=== PATIENT | male | born 1955 | race Caucasian/White ===

== ENCOUNTER 2018-02-08 13:30 | Inpatient (IN) | payer MEDICARE ==
[2018-02-08 14:09] LABS: INR-International Normal Ratio 2.4; PTT 34.8 SEC (22.9-36.1); Prothrombin Time 26.5 SEC (12.0-14.7)
[2018-02-08 14:10] LABS: D-Dimer Test 1.47 *mcg/mL (0.27-0.43)
[2018-02-08 14:12] LABS: Hemoglobin 12.8 g/dL (14.0-18.0); Mean Corpuscular HGB CONC 29.4 g/dL (32.0-36.0); Mean Corpuscular Hemoglobin 30.7 pg (27.0-31.0); Mean Platelet Volume 8.7 fL (7.4-10.4); Platelet Count 125 thou/uL (130-400); RBC Distribution Width 15.2 % (11.5-14.5); Red Blood Cell (RBC) Count 4.16 mill/uL (4.70-6.10); White Blood Cell (WBC) Count 4.9 thou/uL (4.8-10.8)
[2018-02-08 14:24] LABS: ALT (SGPT) Less than 7 U/L (8-55); AST (SGOT) 14 U/L (5-34); Albumin 3.4 g/dL (3.4-4.8); Alkaline Phosphatase 58 U/L (40-150); BUN (Urea Nitrogen) 27 mg/dL (8.4-25.7); Bilirubin, Total 0.6 mg/dL (0.2-1.2); Calc. Creatinine Clearance 0 mL/min (70-130); Calcium 9.3 mg/dL (7.8-10.44); Estimated GFR-MDRD 52; Globulin 5.3 g/dL (2.4-3.5); Glucose 142 mg/dL (80-115); Protein, Total 8.7 g/dL (5.8-8.1)
[2018-02-08 14:33] LABS: Anion Gap 18 mmol/L (10-20); Chloride 87 mmol/L (98-107); Potassium 4.8 mmol/L (3.5-5.1); Sodium 144 mmol/L (136-145)
--- NOTE | 2018-02-08 14:34 | RAD ---
PORTABLE CHEST 1 VIEW: Date: 02/08/18 Time: 1407 hours HISTORY: Dyspnea. FINDINGS/IMPRESSION: Comparison made with exam of 12/20/14. The heart size is enlarged. There is pulmonary vascular congestion with right pleural effusion. No pn eumothoraces seen. POS: [facility]
[2018-02-08 14:36] LABS: Carbon Dioxide 44 mmol/L (23-31)
[2018-02-08 14:39] LABS: #Eosinphils 0.1 thou/uL (0.0-0.7); #Lymphocytes 0.8 thou/uL (1.20-3.40); #Monocytes 0.4 thou/uL (0.11-0.59); #Neutrophils 3.6 thou/uL (1.40-6.50); %Basophils 0.8 % (0.0-1.0); %Eosinophils 2.3 % (0.0-10.0); %Lymphocytes 16.1 % (21.0-51.0); %Neutrophils 73.7 % (42.0-75.0); Anisocytosis SLIGHT = 6-15 cells (100X) (0-5/hpf); Hypochromia SLIGHT = 6-15 cells (100X) (0-5/hpf); MDiff Complete? YES; PLT Morphology Comment Appears Decreased
[2018-02-08 14:46] LABS: CKMB 1.2 ng/mL (0-6.6)
[2018-02-08] MEDS ORDERED: Albuterol Sulfate 2.5 mg/3 ml Neb ONE (16:05)
[2018-02-08] MEDS ORDERED: Albuterol Sulfate 2.5 mg/0.5 ml Neb ONE (16:05)
[2018-02-08] MEDS ORDERED: Sodium Chloride 0.65% Nasal 44 ML BOT EA NARE PRN (16:18)
[2018-02-08] MEDS ORDERED: Bisacodyl 10 MG SUPP PR PRN (16:18)
[2018-02-08] MEDS ORDERED: cloNIDine 0.1 MG TAB PO PRN (16:18)
[2018-02-08] MEDS ORDERED: Diabetic Tussin 200 MG/10 ML UDCUP PO PRN (16:18)
[2018-02-08] MEDS ORDERED: Benzonatate 100 MG CAP PO PRN (16:18)
[2018-02-08] MEDS ORDERED: Calcium Carbonate 500 MG ChewTAB PO PRN (16:18)
[2018-02-08] MEDS ORDERED: Bisacodyl 5 MG TAB PO PRN (16:18)
[2018-02-08] MEDS ORDERED: Senokot S 8.6-50 MG TAB PO PRN (16:18)
[2018-02-08] MEDS ORDERED: Acetaminophen 325 MG TAB PO PRN (16:18)
[2018-02-08] MEDS ORDERED: hydrALAZINE 20 MG/ML VIAL SLOW IVP PRN (16:18)
[2018-02-08] MEDS ORDERED: cefTRIAXone\\ROCEPHIN 2 GM VIAL ONE (16:26)
[2018-02-08] MEDS ORDERED: methylPREDNISolone Sod Succ/PF 125 MG/2 ML VIAL ONE (16:26)
[2018-02-08] MEDS ORDERED: Furosemide 40 MG/4 ML VIAL ONE (16:50)
[2018-02-08 17:51] LABS: Actual Bicarbonate (HCO3a) 58.7 mEq/L (22-28); Analyzer IN Cardio ER; Base Excess (BEa) 24.6 mEq/L (-2.0 to +3.0); Calcium, Ionized 1.12 mmol/L (1.12-1.30); Carboxyhemoglobin (COHb) 1.6 gm% (0.0-3.0); Hemoglobin (Hb) 13.1 g/dL (14.0-18.0); Potassium - ABG Lab 4.12 mmol/L (3.70-5.30); pH, Arterial 7.26 (7.35-7.45)
[2018-02-08 17:54] LABS: CO2 Tension 135.1 mmHg (35.0-45.0); O2 Tension (PaO2) 58.2 mmHg (> 80.0)
[2018-02-08 17:55] LABS: ALV-art Gradient 22.475 (0-20)
[2018-02-08] MEDS ORDERED: Succinylcholine Chloride 20 MG/ML 10 ml SYRINGE FS ONE (17:59)
[2018-02-08] MEDS ORDERED: Morphine 2 MG/ML SYRINGE SLOW IVP PRN (18:21)
[2018-02-08] MEDS ORDERED: Lorazepam 2 MG/ML VIAL SLOW IVP PRN (18:21)
[2018-02-08] MEDS ORDERED: Propofol BOLUS 1,000 MG/100 ML VIAL IV PRN (18:21)
[2018-02-08] MEDS ORDERED: Fentanyl BOLUS 250 ML IVPB PRN (18:21)
[2018-02-08] MEDS ORDERED: DISCONTINUE PREVIOUS NARCOTIC PAIN MEDICATIONS AND BENZODIAZEPINES FS SCH (18:21)
[2018-02-08 18:23] LABS: CKMB 1.1 ng/mL (0-6.6)
[2018-02-08] MEDS ORDERED: Fentanyl 100 MCG/2 ML VIAL ONE ×2 (18:28→18:32)
[2018-02-08] MEDS ORDERED: Ventilator Sedation Protocol 1 EACH FS SCH (18:30)
[2018-02-08] MEDS ORDERED: Midazolam HCl 5 mg/ml Vial ONE (18:30)
[2018-02-08] MEDS ORDERED: Propofol 1,000 MG/100 ML VIAL IV ONE (18:32)
[2018-02-08 19:05] LABS: Analyzer IN Cardio ER; Base Excess (BEa) 24.2 mEq/L (-2.0 to +3.0); Calcium, Ionized 1.09 mmol/L (1.12-1.30); Carboxyhemoglobin (COHb) 1.5 gm% (0.0-3.0); Hemoglobin (Hb) 13.3 g/dL (14.0-18.0); O2 Tension (PaO2) 68.8 mmHg (> 80.0); Potassium - ABG Lab 4.09 mmol/L (3.70-5.30); pH, Arterial 7.46 (7.35-7.45)
--- NOTE | 2018-02-08 19:06 | HP ---
PRIMARY CARE PHYSICIAN: Dr. Dar Dennis. CHIEF COMPLAINT: Low oxygen saturation and shortness of breath. HISTORY OF PRESENTING ILLNESS: Mr. Fraser is a 62-year-old male with past medical history of morbid obesity as well as history of DVT and PE, on chronic anticoagulation as well as history of abdominal cellulitis 3 years ago and chronic venostasis in the legs, who presented from home with the above mentioned complaint. History is mainly obtained by his jy-cuyoqi-ax-law present in the emergency room. The patient is very somnolent at this time and is not able to provide any history. He does wake up and answer most of the questions and follow simple commands, but falls back asleep quickly. According to the family, the patient was off Coumadin for almost 3 years. He got sick in November of this year and presented to the [facility] for shortness of breath and was restarted on Coumadin. He was restarted on Coumadin in [facility] and was discharged to [facility]. He came back home from there and has been doing fairly fine. He has been taking his Coumadin now, but with some encouragement from his family. He has been discharged on home oxygen and the family has been noticing that for the last two days his oxygen levels have been running low. He was noticed to become more and more somnolent and very short of breath as per his family. His oxygen saturations dropped to 70% to 80% at home. Eventually, they brought him to the hospital today. The patient himself is somewhat agitated and at this time denies any other symptoms and wants to be left alone. He denies any chest pain per se. He denies any recent fever, illness, or chills. He denies any cough. In the emergency room, he was found to be hypoxic with a saturation in the 70% initially. He was found to be wheezing. He was started on continuous nebulizers and non-rebreather mask at 15% oxygen which was reduced to 3% afterwards. His labs were consistent with hypercarbia and eventually a VBG was done, which showed CO2 more than 70. Results are not available to me at this time. At my request, emergency room physician contacted Pulmonary Medicine and it was instructed that he would be started on BiPAP. He is now being admitted to the [facility] on BiPAP for acute hypoxic respiratory failure with hypercapnia. Rest of his blood work is remarkable for elevated troponin at 0.197 and elevated BNP of 1331. His chest x-ray has pulmonary vascular congestion. He was also given Solu-Medrol and antibiotics in the emergency room for possible infiltrates. The family reports that he was recently told by the primary care physician that he has worsening of his kidney disease and was referred to Nephrology, Dr. Carbjaal and they are yet to make an appointment with him. His INR is therapeutic at 2.4 today. Unfortunately, because of his big size, he is unable to get a CT scan or a V/Q scan of his chest for further delineation of his underlying illness. PAST MEDICAL HISTORY: 1. Morbid obesity. His weight is 223 kg. 2. History of cellulitis of abdominal wall, December 2014, requiring surgical intervention. 3. History of DVT and PE, on chronic anticoagulation with warfarin. 4. Chronic lower venostasis and ulceration. PAST SURGICAL HISTORY: 1. Abdominal necrotic tissue removal, 2014. 2. Hernia surgery 25 years ago. SOCIAL HISTORY: He lives largely alone. He has family on and off to take care of him. He is largely bed bound and can walk only from the bed to the bedside commode with difficulty. He is on home oxygen. No history of drug, tobacco, or alcohol abuse. Surrogate decision maker is his fn-[id number]-law, but there is no formal medical power of litigation attorney associate. FAMILY HISTORY: Significant for mom, who of cancer and father in his 90s. His brother recently a year and a half ago from a massive heart attack and the brother's is present in the room in the ER. ALLERGIES: NO KNOWN MEDICATION ALLERGIES. CURRENT MEDICATIONS: Coumadin 5 mg daily. Otherwise, further need to be reconciled. REVIEW OF SYSTEMS: Limited review of system as the patient refuses to answer most of my questions and is somewhat somnolent. Otherwise as per HPI. CODE STATUS: Full code discussed with the patient after he was woken up. He is very certain that he will be okay if he needs to be intubated, and he will be okay with the CPR if needed. Dvhfoc-bo-rad also agreed with this decision. LABORATORY DATA: Lab examination; CBC shows WBCs 4.9 with normal differential. Hemoglobin 12.8 with macrocytosis, platelet count 125, INR is 2.4, and D-dimer 1.47. Serum chemistry showed chloride 87, bicarb 44, BUN 27, creatinine 1.38 with estimated GFR of 52, troponin is 0.197 with normal CK-MB. Liver enzymes unremarkable. BNP is 1331.5. DIAGNOSTIC DATA: Chest x-ray by my review shows cardiomegaly and mild pulmonary vascular congestion without any significant infiltrate. A 12-lead EKG shows normal sinus rhythm with right bundle branch block and evidence of right ventricular hypertrophy. PHYSICAL EXAMINATION: VITAL SIGNS: Upon presentation to the ER, blood pressure 110/69, pulse of 78, respirations 25, temperature 98.1, saturating 98% on non-rebreather. GENERAL: He is somnolent, but woken up easily, but falls back asleep easily as well. Currently, in no acute respiratory distress. HEENT: He has been on continuous albuterol nebulizer. Mucous membrane is slightly dry. No oropharyngeal exudate or erythema. Head is normocephalic, atraumatic. Pupils equal and reactive to light and accommodation. Extraocular movement intact. NECK: Obese, soft, and supple without any lymphadenopathy. Rate rhythm is regular without any significant murmur. Bilateral diffuse wheezes are heard, but difficult to auscultate because of morbid obesity. ABDOMEN: Extensive and morbidly obese without any cellulitic changes. He does have venostasis type changes in the lateral francis and pannus. EXTREMITIES: Show extensive bilateral lower extremity venostasis changes with discoloration and thickening of the skin without any obvious ulceration or weeping. Edema noticed bilaterally. NEUROLOGICAL: He is moving all 4 extremities on command. He is somnolent, but awake, alert, and oriented x3 when woken up. PSYCHIATRIC: Agitated. IMPRESSION AND PLAN: 1. Acute hypoxic and hypercapnic respiratory failure. It seems to be multifactorial in origin, but most likely it is worsening sleep apnea causing hypercapnia. The patient was prescribed continuous positive airway pressure at home, but is obviously noncompliant. Morbid obesity is seemingly the root of most of his problems. He most likely has suffered right-sided heart failure with or without cor pulmonale as evidenced by pulmonary vascular congestion and elevated BNP and elevated troponin. He will be diuresed, and we will give him IV steroids and nebulizers. I am not convinced that he has infection at this time, so we will hold off on further antibiotics. Because of hypercarbia, he will be started on bilevel positive airway pressure and will be admitted to Intermediate Care Unit. We will request consultation with Pulmonary Critical Care Medicine as well. We will also rule out acute coronary syndrome with serial cardiac enzymes and put him on aspirin for now. The probability of pulmonary embolism is less likely as his INR is therapeutic on Coumadin. We will continue that. We will also obtain strict inputs and outputs and fluid restriction and also obtain a transthoracic echocardiogram to assess cardiac function. A cardiac event also cannot be ruled out, but most likely his symptoms are due to worsening right-sided heart failure, because of severe sleep apnea. 2. Elevated troponin, suspected either demand ischemia versus non ST elevation myocardial infarction. We will continue to trend serial cardiac enzymes and obtain transthoracic echocardiogram. We will also consider Cardiology consultation if his troponin continues to trend upwards. Avoid any anticoagulation at this time as he is therapeutic on his INR and the chances of bleeding are higher. Aspirin will be given as above. This can also be secondary to acute congestive heart failure. 3. Acute congestive heart failure, unclear systolic versus diastolic at this time. We will diurese him and obtain a transthoracic echocardiogram. Consult Cardiology if necessary. 4. Morbid obesity. Untreatable at this stage. 5. History of deep venous thrombosis and pulmonary embolism. Continue Coumadin and monitor daily PT and INRs. 6. Severe deconditioning. We will consult occupational therapy and physical therapy as well as Palliative Care Team. 7. Chronic respiratory failure, likely secondary to severe sleep apnea. Continue CPAP while in the hospital at night. Currently, he will be on BiPAP for acute hypoxic respiratory failure. 8. Chronic kidney disease, seems to be at baseline. He will follow up with Nephrology as an outpatient, and we will monitor renal function on a daily basis especially because he is also going to be diuresed. 9. Code status: Full code discussed with the patient and his family at bedside. 10. Deep venous thrombosis and gastrointestinal prophylaxis in the form of continuation of Coumadin and Pepcid b.i.d. DISPOSITION: Mr. Fraser is currently being admitted to [facility] for severe hypercarbic and hypoxic acute on chronic respiratory failure and acute congestive heart failure as well as elevated troponin. ESTIMATED LENGTH OF STAY: At this time is at least 2 to 3 midnights. Further management will depend upon his clinical course. TIME SPENT: Total time spent in taking care of this patient is 46 minutes including [id number] interaction. Job ID: [id number]
[2018-02-08 19:24] LABS: CO2 Tension 76.2 mmHg (35.0-45.0)
[2018-02-08 19:25] LABS: Puncture Site LRA
--- NOTE | 2018-02-08 19:51 | RAD ---
PORTABLE CHEST: HISTORY: Shortness of breath. Intubation. COMPARISON: Earlier exam from the same day. FINDINGS: Heart size is enlarged. Endotracheal tube is now present, which appears to be in satisfactory positi on. There is also what appears to be an NG tube, the tip of which is difficult to visualize. There are some pleural and parenchymal changes in the right base. The left lung shows some subsegmental at electasis. IMPRESSION: Interval placement of endotracheal tube, which appears to be in satisfactory position. The distal po rtion of the nasogastric tube is difficult to visualize on this examination. POS: [facility]
[2018-02-08 20:33] VITALS: BMI 66.9
[2018-02-08 21:02] LABS: Troponin I 0.158 ng/mL (< 0.028)
[2018-02-08] MEDS ORDERED: Sodium Chloride 0.9% 15 ML NEB ONE (21:08)
--- NOTE | 2018-02-08 21:14 | CON ---
DATE OF CONSULTATION: HISTORY OF PRESENT ILLNESS: A 62-year-old, morbidly obese gentleman, whose history is obtained from talking to his dshosd-ql-hpt. She is in the ER, states that recently went home from a [facility] assisted. He was there admitted for about roughly I am thinking about 3 weeks with similar problems, shortness of breath, coughing, severe deconditioning. He then sees Dr. Draper, who apparently had arranged for him to see Dr. Awan sometime in February. Obdghq-ey-ele states he has severe limitation of activity. Apparently, does have a CPAP machine, but has failed to use it. He is morbidly obese. He weighs over 450 pounds. During the last visit, he is on long-term Coumadin for chronic DVT. Unable to get any history. When I arrived, he is being intubated by the ER physician for acute respiratory failure with marked respiratory acidosis. His pCO2 was greater than 100. PAST MEDICAL HISTORY: Morbid obesity, DVT, chronic stasis cellulitis, COPD, former smoker. He has not been in this hospital for almost 3 years. Unclear who his primary care physician is, but appears it may be Dr. Draper. Arcmkq-ep-qjt states he has smoked in the past with COPD and pneumonia issues. PAST MEDICAL HISTORY: Apparently none. His brother was not here, but bother's was here. HOME MEDICATIONS: Apparently Coumadin 5, otherwise unknown medication. REVIEW OF SYSTEMS: Unobtainable. PHYSICAL EXAMINATION: GENERAL: Morbidly obese. VITAL SIGNS: Post intubation, his sats 100%, pulse 80, blood pressure 138/80. CHEST: Decreased breath sounds. No wheezing. CARDIAC: Normal S1 and S2. No gallop. Abdomen is morbid. EXTREMITIES: Trace edema. NEUROLOGIC: Sedated. LABORATORY DATA: White count 4000, H and H , platelet count 125. INR is 2.4. D-dimer is 1.47. His PO2 was 58, pCO2 is 135, pH 7.26, and bicarb was 44. Creatinine 1.38. BNP is 131 elevated. Chest x-ray, as noted, shows morbid obesity, questionable chronic bilateral pleural thickening, pleural effusion. I do not see obvious infiltrates. IMPRESSION: 1. Acute on chronic respiratory failure. 2. Morbid obesity. 3. Marked respiratory acidosis. 4. Marked metabolic alkalosis. 5. Stasis. 6. Chronic deep vein thrombosis, on Coumadin. PLAN: 1. Neb treatments, steroids, antibiotics were initiated. 2. Continue vent support, wean when stable. Discuss with family ongoing issues, code status. Question is whether he would benefit from a trach. We will try and get information from the during his most recent admission. This is a 45-minute Critical Care time. Job ID: [id number]
[2018-02-08] MEDS: Propofol 1,000 MG/100 ML VIAL IV PRN (22:03)
[2018-02-08] MEDS: Famotidine 20 MG TAB PO SCH (22:19)
[2018-02-08] MEDS: Cefepime 1 GM in Sodium Chloride 0.9% 100 ML IVPB SCH (22:20)
[2018-02-09] MEDS: Propofol 1,000 MG/100 ML VIAL IV PRN ×5 (02:33→21:56)
[2018-02-09] MEDS: fentaNYL Citrate/PF 2,000 MCG in Sodium Chloride 0.9% 60 ML IV SCH ×2 (03:14→21:56)
[2018-02-09 05:15] LABS: #Lymphocytes 0.3 thou/uL (1.20-3.40); #Monocytes 0.1 thou/uL (0.11-0.59); #Neutrophils 3.7 thou/uL (1.40-6.50); %Basophils 0.1 % (0.0-1.0); %Eosinophils 0.3 % (0.0-10.0); %Lymphocytes 7.9 % (21.0-51.0); %Monocytes 2.6 % (0.0-10.0); %Neutrophils 89.1 % (42.0-75.0); Hemoglobin 12.9 g/dL (14.0-18.0); Mean Corpuscular HGB CONC 29.6 g/dL (32.0-36.0); Mean Corpuscular Hemoglobin 30.5 pg (27.0-31.0); Platelet Count 133 thou/uL (130-400); Red Blood Cell (RBC) Count 4.22 mill/uL (4.70-6.10); White Blood Cell (WBC) Count 4.1 thou/uL (4.8-10.8)
[2018-02-09 05:19] LABS: INR-International Normal Ratio 2.6; Prothrombin Time 27.9 SEC (12.0-14.7)
[2018-02-09 05:28] LABS: BUN (Urea Nitrogen) 26 mg/dL (8.4-25.7); Calc. Creatinine Clearance 182 mL/min (70-130); Calcium 9.4 mg/dL (7.8-10.44); Estimated GFR-MDRD 54; Glucose 177 mg/dL (80-115)
[2018-02-09 05:37] LABS: Anion Gap 21 mmol/L (10-20); Chloride 85 mmol/L (98-107); Potassium 5.1 mmol/L (3.5-5.1); Sodium 142 mmol/L (136-145)
[2018-02-09] MEDS: Furosemide 40 MG/4 ML VIAL SLOW IVP SCH ×2 (05:41→13:54)
[2018-02-09] MEDS: Cefepime 1 GM in Sodium Chloride 0.9% 100 ML IVPB SCH ×2 (05:41→16:55)
[2018-02-09 05:42] LABS: Carbon Dioxide 41 mmol/L (23-31)
[2018-02-09 07:56] LABS: Actual Bicarbonate (HCO3a) 48.1 mEq/L (22-28); Base Excess (BEa) 23.8 mEq/L (-2.0 to +3.0); CO2 Tension 47.6 mmHg (35.0-45.0); Calcium, Ionized 1.08 mmol/L (1.12-1.30); Carboxyhemoglobin (COHb) 1.4 gm% (0.0-3.0); Potassium - ABG Lab 3.84 mmol/L (3.70-5.30)
[2018-02-09 08:01] LABS: Puncture Site RRA; pH, Arterial 7.62 (7.35-7.45)
[2018-02-09] MEDS ORDERED: WARFARIN PO PRN (08:08)
[2018-02-09] MEDS ORDERED: predniSONE 20 MG TAB PO SCH (08:45)
[2018-02-09] MEDS: Aspirin 325 mg Enteric Coated Tablet PO SCH (09:01)
[2018-02-09] MEDS: Famotidine 20 MG TAB PO SCH ×2 (09:01→21:57)
--- NOTE | 2018-02-09 09:29 | RAD ---
PORTABLE SEMIUPRIGHT FRONTAL CHEST RADIOGRAPH: Date: 02/09/18 COMPARISON: 02/08/18. HISTORY: Ventilated patient. FINDINGS: Stable endotracheal tube and nasogastric tubes. Stable enlargement of the cardiac silhouette. No pneu mothorax. There is pulmonary vascular congestion with diffuse increased interstitial density in the perihilar r egions and both lung bases, right greater than left. There is blunting of the right costophrenic angl e suggesting right pleural fluid and/or pleural thickening, and there are focal areas of increased de nsity in the right lung base suggesting volume loss, infectious pneumonitis, or aspiration. IMPRESSION: Stable appearance of the chest as detailed above. POS: [facility]
--- NOTE | 2018-02-09 10:17 | PRG ---
DATE OF SERVICE: 02/09/2018 SERVICE: Pulmonary Medicine. INTERVAL HISTORY: Overnight, the patient's lungs have opened up a little bit. He cannot provide any additional elements of the history. He requires mechanical ventilation. There has been no interval change to his condition. Nursing reports no overnight events. OBJECTIVE: VITAL SIGNS: Afebrile, pulse 62, blood pressure 109/75, respirations 11, saturation 92% on 45% FiO2, and a PEEP of 5. GENERAL: The patient is intubated and sedated. HEENT: Normocephalic and atraumatic. Sclerae white. Conjunctivae pink. Oral mucosa is moist without lesions. LUNGS: Decent air entry. There is no prolonged expiratory phase, wheezing, rhonchi, or crackles present. HEART: Normal rate. Regular. ABDOMEN: Soft, nontender, and nondistended. Bowel sounds are positive. MUSCULOSKELETAL: No cyanosis or clubbing. There is diffuse edema throughout bilateral lung lama. LABORATORY DATA: WBC 4.1, hemoglobin 12.9, platelets 133,000. INR 2.6. PH 7.62, pCO2 of 48, pO2 of 52, corresponding to a saturation of 93%. Creatinine downtrending to 1.33. Bicarb 41 and downtrending, chloride 85, sodium 142. BNP 1300, troponin is downtrending to 0.156. TSH falls within the normal limits. BNP is elevated, lactate negative. Blood cultures x2 are negative. IMAGING DATA: Chest x-ray demonstrates pulmonary vascular congestion. Endotracheal tube is in good position, roughly 4 cm above the level of the connie. There is likely a right pleural parenchymal opacification present, which could be associated with volume overload versus infectious process. ASSESSMENT: 1. Acute on chronic hypoxic and hypercapnic respiratory failure. 2. Morbid obesity. 3. Acute heart failure. 4. Community-acquired pneumonia, suspected. DISCUSSION AND PLAN: We will continue supportive care including a ventilator. We backed off our minute volume quite a bit. ABG will be repeated tomorrow morning. We will wean away oxygen as tolerated. Agree with diuresing the patient through time. Hopefully, we will keep him negative 1 to 2 L over the next 24 to 48 hours. At this point, his oxygen requirements preclude extubation. We will give him a sedation holiday, but we have no plans on extubating him today. CRITICAL CARE TIME: 30 minutes. Job ID: [id number]
--- NOTE | 2018-02-09 12:18 | PDOC.PN ---
- Subjective Encounter Start Date: 02/09/18 Encounter Start Time: 12:16 Subjective: remains intubated for hypercarbia .no new events - Objective Resuscitation Status - Order Detail: 02/08/18 16:59 Resuscitation Status Routine Resuscitation Status: FULL: Full Resuscitation Discussed with: discussed with patient and family MAR Reviewed: Yes Vital Signs & Weight: Vital Signs (12 hours) Temp Pulse Resp 02/09/18 11:00 99.7 F H 02/09/18 10:35 64 02/09/18 10:00 14 02/09/18 09:40 71 02/09/18 08:00 100 F H 20 02/09/18 07:48 62 02/09/18 07:00 100 F H 02/09/18 06:00 20 02/09/18 04:00 99.5 F 20 02/09/18 03:50 59 L 02/09/18 02:00 20 Weight Weight 493 lb Most Recent Monitor Data Heart Rate from ECG 61 NIBP 126/54 NIBP BP-Mean 78 Respiration from ECG 16 SpO2 95 I&O: 02/08/18 02/09/18 02/10/18 06:59 06:59 06:59 Intake Total 559.0 Output Total 1635 1325 Balance -1076.0 -1325 Result Diagrams: 02/10/18 04:43 02/10/18 04:43 Additional Labs: Laboratory Tests 02/08/18 02/08/18 02/08/18 13:54 13:54 17:48 Creatinine 1.38 H Troponin I 0.197 H 0.156 H 02/08/18 02/09/18 20:30 04:53 Creatinine 1.33 H Troponin I 0.158 H Phys Exam - Physical Examination Constitutional: NAD HEENT: PERRLA, moist MMs, oral pharynx no lesions ETT Neck: no nodes, no JVD, supple, full ROM Respiratory: no wheezing, no rales, no rhonchi, clear to auscultation bilateral Cardiovascular: RRR, no significant murmur Gastrointestinal: soft, no distention, positive bowel sounds morbidly obese Musculoskeletal: no edema, pulses present sedated.moves all extremities Skin: no rash Dx/Plan (1) Acute on chronic respiratory failure with hypoxia and hypercapnia Code(s): J96.21 - ACUTE AND CHRONIC RESPIRATORY FAILURE WITH HYPOXIA; J96.22 - ACUTE AND CHRONIC RESPIRATORY FAILURE WITH HYPERCAPNIA Status: Acute (2) Acute CHF (congestive heart failure) Code(s): I50.9 - HEART FAILURE, UNSPECIFIED Status: Acute Qualifiers: Heart failure type: unspecified Qualified Code(s): I50.9 - Heart failure, unspecified (3) Elevated troponin Code(s): R74.8 - ABNORMAL LEVELS OF OTHER SERUM ENZYMES Status: Acute Comment: likley demand ischemia from Acute CHF (4) Chronic anticoagulation Code(s): Z79.01 - MARKETING DIRECTOR ASSISTED LIVING (CURRENT) USE OF ANTICOAGULANTS Status: Chronic (5) CHUCHO (obstructive sleep apnea) Code(s): G47.33 - OBSTRUCTIVE SLEEP APNEA (ADULT) (PEDIATRIC) Status: Chronic (6) Chronic cutaneous venous stasis ulcer Code(s): I83.009 - VARICOSE VEINS OF UNSP LOWER EXTREMITY W ULCER OF UNSP SITE Status: Chronic (7) Morbid obesity Code(s): E66.01 - MORBID (SEVERE) OBESITY DUE TO EXCESS CALORIES Status: Chronic - Plan DVT proph w/SCDs cont diuresis,steroids,nebs. -: Vent managment per PCCM -: ECHO to assess cardiac Function.lilet R sided failure with/without Cor pulm -: coumadin w daily PT/INR -: HD stable.am labs * . Review of Systems - Review of Systems Other: can't be obtained due to sedation & intubation - Medications/Allergies Allergies/Adverse Reactions: Allergies Allergy/AdvReac Type Severity Reaction Status Date / Time No Known Drug Allergies Allergy Verified 02/08/18 21:03 Medications: Current Medications Acetaminophen (Tylenol) 650 mg PO Q4H PRN PRN Reason: Headache/Fever/Mild Pain (1-3) Albuterol/Ipratropium (Duoneb) 3 ml NEB [id number] PRN PRN Reason: SOB &/or Wheezing Albuterol/Ipratropium (Duoneb) 3 ml NEB [id number] [facility] Aspirin (Ecotrin) 325 mg PO DAILY [facility] Last Admin: 02/09/18 09:01 Dose: 325 mg Bisacodyl (Dulcolax) 10 mg PO DAILYPRN PRN PRN Reason: Constipation Bisacodyl (Dulcolax) 10 mg IN DAILYPRN PRN PRN Reason: Constipation Calcium Carbonate (Tums) 1,000 mg PO Q4H PRN PRN Reason: Heartburn or Indigestion Clonidine (Catapres) 0.1 mg PO Q4H PRN PRN Reason: SBP > 160____ Famotidine (Pepcid) 20 mg PO BID [facility] Last Admin: 02/09/18 09:01 Dose: 20 mg Furosemide (Lasix) 40 mg SLOW IVP 0600,1400 [facility] Last Admin: 02/09/18 05:41 Dose: 40 mg Guaifenesin (Robitussin Sf) 200 mg PO Q4H PRN PRN Reason: Cough Hydralazine HCl (Apresoline) 10 mg SLOW IVP Q4H PRN PRN Reason: SBP > 180 and HR < 70 Cefepime HCl 1 gm/ Sodium (Chloride) 100 mls @ 200 mls/hr IVPB 0630,1830 [facility] Last Admin: 02/09/18 05:41 Dose: 100 mls Fentanyl Citrate 2,000 mcg/ (Sodium Chloride) 100 mls @ 0 mls/hr IV INF [facility]; Protocol Stop: 03/10/18 18:21 Last Admin: 02/09/18 03:14 Dose: 100 mls Fentanyl Citrate (Fentanyl Bolus) 250 mls @ 0 mls/hr IVPB PRN PRN PRN Reason: Breakthrough pain/agitation Stop: 03/10/18 18:21 Methylprednisolone Sodium Succinate (Solu-Medrol) 40 mg IVP Q6HR [facility] Last Admin: 02/09/18 05:41 Dose: 40 mg Miscellaneous Medication (Pharmacy To Dose) 1 each PO PRN PRN PRN Reason: Pharmacy to dose Discontinue Previous Narcotic Pain Medications And Benzodiazepines 1 each FS .ONE [facility] Stop: 03/10/18 18:21 Ondansetron HCl (Zofran) 4 mg IVP Q6H PRN PRN Reason: Nausea/Vomiting Prednisone (Prednisone) 40 mg PO QAM-[facility] Propofol (Diprivan) 1,000 mg IV INF PRN; Protocol PRN Reason: TO ACHIEVE GOAL RASS Stop: 03/10/18 18:21 Last Admin: 02/09/18 07:36 Dose: 1,000 mg Propofol (Diprivan Bolus) 20 mg IV Q5MIN PRN PRN Reason: BREAKTHROUGH AGITATION Stop: 03/10/18 18:21 Senna/Docusate Sodium (Senokot S) 2 tab PO BID PRN PRN Reason: Constipation Sodium Chloride ([place] Nasal [place] 0.65%) 0 ml EA NARE QIDPRN PRN PRN Reason: Nasal Congestion Warfarin Sodium (Coumadin) 5 mg PO 1700 J[facility]NNIE
[2018-02-09] MEDS: Warfarin Sodium 5 MG TAB PO SCH (16:55)
[2018-02-10] MEDS: Propofol 1,000 MG/100 ML VIAL IV PRN ×4 (04:13→20:41)
[2018-02-10 05:25] LABS: #Lymphocytes 0.3 thou/uL (1.20-3.40); #Monocytes 0.3 thou/uL (0.11-0.59); %Basophils 0.4 % (0.0-1.0); %Eosinophils 0.1 % (0.0-10.0); %Lymphocytes 5.5 % (21.0-51.0); %Monocytes 4.6 % (0.0-10.0); %Neutrophils 89.4 % (42.0-75.0); Hemoglobin 12.7 g/dL (14.0-18.0); Mean Corpuscular HGB CONC 30.2 g/dL (32.0-36.0); Mean Corpuscular Hemoglobin 30.3 pg (27.0-31.0); Mean Platelet Volume 8.1 fL (7.4-10.4); Platelet Count 139 thou/uL (130-400); RBC Distribution Width 15.6 % (11.5-14.5); Red Blood Cell (RBC) Count 4.18 mill/uL (4.70-6.10); White Blood Cell (WBC) Count 5.6 thou/uL (4.8-10.8)
[2018-02-10 05:31] LABS: INR-International Normal Ratio 1.9; Prothrombin Time 21.9 SEC (12.0-14.7)
[2018-02-10] MEDS: Furosemide 40 MG/4 ML VIAL SLOW IVP SCH ×2 (05:35→14:51)
[2018-02-10] MEDS: Cefepime 1 GM in Sodium Chloride 0.9% 100 ML IVPB SCH ×2 (05:35→18:20)
[2018-02-10 05:43] LABS: BUN (Urea Nitrogen) 29 mg/dL (8.4-25.7); Calc. Creatinine Clearance 186 mL/min (70-130); Calcium 9.1 mg/dL (7.8-10.44); Estimated GFR-MDRD 56; Glucose 147 mg/dL (80-115)
[2018-02-10 05:53] LABS: Anion Gap 19 mmol/L (10-20); Chloride 85 mmol/L (98-107); Potassium 3.7 mmol/L (3.5-5.1); Sodium 142 mmol/L (136-145)
[2018-02-10 05:55] LABS: Carbon Dioxide 42 mmol/L (23-31)
[2018-02-10 07:16] LABS: Carboxyhemoglobin (COHb) 1.5 gm% (0.0-3.0); Hemoglobin (Hb) 13.4 g/dL (14.0-18.0); O2 Tension (PaO2) 64.3 mmHg (> 80.0); Potassium - ABG Lab 3.61 mmol/L (3.70-5.30); pH, Arterial 7.46 (7.35-7.45)
[2018-02-10 07:18] LABS: Puncture Site RR
--- NOTE | 2018-02-10 08:22 | RAD ---
PORTABLE CHEST 1 VIEW: Date: 02/10/18 Time: 0519 hours HISTORY: Respiratory failure. FINDINGS/IMPRESSION: No significant interval change is seen since the previous day's exam. POS: [facility]
[2018-02-10] MEDS: predniSONE 20 MG TAB PO SCH (08:45)
[2018-02-10] MEDS: Famotidine 20 MG TAB PO SCH ×2 (08:45→20:41)
[2018-02-10] MEDS: Amlodipine 5 MG TAB PO SCH (08:46)
[2018-02-10] MEDS: Aspirin 325 mg Enteric Coated Tablet PO SCH (08:46)
--- NOTE | 2018-02-10 11:54 | PDOC.PN ---
- Subjective Encounter Start Date: 02/10/18 Encounter Start Time: 11:52 Subjective: intubated but awake -: no ON events - Objective Resuscitation Status - Order Detail: 02/08/18 16:59 Resuscitation Status Routine Resuscitation Status: FULL: Full Resuscitation Discussed with: discussed with patient and family MAR Reviewed: Yes Vital Signs & Weight: Vital Signs (12 hours) Temp Pulse Resp BP Pulse Ox 02/10/18 11:08 58 L 158/81 H 02/10/18 10:00 16 02/10/18 08:46 56 L 167/83 H 02/10/18 08:00 98.8 F 16 02/10/18 06:40 56 L 167/83 H 97 02/10/18 06:39 58 L 13 97 02/10/18 04:05 58 L 135/82 02/10/18 04:00 98.7 F 02/10/18 02:00 17 Weight Admit Weight 493 lb Weight 493 lb Most Recent Monitor Data Heart Rate from ECG 55 NIBP 158/81 NIBP BP-Mean 106 Respiration from ECG 8 SpO2 98 I&O: 02/09/18 02/10/18 02/11/18 06:59 06:59 06:59 Intake Total 559.0 471.2 Output Total 1635 2625 420 Balance -1076.0 -2153.8 -420 Result Diagrams: 02/10/18 04:43 02/10/18 04:43 Additional Labs: Microbiology 02/08/18 22:04 Nasopharyngeal swab Respiratory Virus Panel (PCR) - Final 02/08/18 16:01 Venous blood - Left Hand Blood Culture - Preliminary Specimen has been received and culture in progress. No Growth to date. 02/08/18 15:55 Venous blood - Left Hand Blood Culture - Preliminary Specimen has been received and culture in progress. No Growth to date. Laboratory Tests 02/08/18 02/08/18 02/08/18 13:54 13:54 13:54 ABG pH ABG pCO2 ABG pO2 Troponin I 0.197 H B-Natriuretic Peptide 1331.5 H TSH 3rd Generation 2.3838 02/08/18 02/08/18 02/10/18 17:48 20:30 04:43 ABG pH ABG pCO2 ABG pO2 Troponin I 0.156 H 0.158 H B-Natriuretic Peptide 763.0 H TSH 3rd Generation 02/10/18 07:10 ABG pH 7.46 H ABG pCO2 78.0 H* ABG pO2 64.3 Troponin I B-Natriuretic Peptide TSH 3rd Generation Phys Exam - Physical Examination Constitutional: NAD HEENT: PERRLA, moist MMs, sclera anicteric, oral pharynx no lesions ETT Neck: no nodes, no JVD Respiratory: no wheezing, no rales Cardiovascular: RRR, no significant murmur Gastrointestinal: soft, no distention obese Musculoskeletal: no edema, pulses present Neurological: moves all 4 limbs Psychiatric: normal affect Skin: no rash Dx/Plan (1) Acute on chronic respiratory failure with hypoxia and hypercapnia Code(s): J96.21 - ACUTE AND CHRONIC RESPIRATORY FAILURE WITH HYPOXIA; J96.22 - ACUTE AND CHRONIC RESPIRATORY FAILURE WITH HYPERCAPNIA Status: Acute (2) Acute CHF (congestive heart failure) Code(s): I50.9 - HEART FAILURE, UNSPECIFIED Status: Acute Qualifiers: Heart failure type: unspecified Qualified Code(s): I50.9 - Heart failure, unspecified (3) Elevated troponin Code(s): R74.8 - ABNORMAL LEVELS OF OTHER SERUM ENZYMES Status: Acute Comment: likley demand ischemia from Acute CHF (4) Chronic anticoagulation Code(s): Z79.01 - WELDER APPRENTICE (CURRENT) USE OF ANTICOAGULANTS Status: Chronic (5) CHUCHO (obstructive sleep apnea) Code(s): G47.33 - OBSTRUCTIVE SLEEP APNEA (ADULT) (PEDIATRIC) Status: Chronic (6) Chronic cutaneous venous stasis ulcer Code(s): I83.009 - VARICOSE VEINS OF UNSP LOWER EXTREMITY W ULCER OF UNSP SITE Status: Chronic (7) Morbid obesity Code(s): E66.01 - MORBID (SEVERE) OBESITY DUE TO EXCESS CALORIES Status: Chronic - Plan DVT proph w/SCDs cont current meds asbelow -: Vent weaning per PCCM.HD stable -: Metabolica alkalosis likley due to diuresis and compensatory for hypercarbi -: INR therapeutic.Pharmacy to manage -: cont Prednisone,cefepime,nebs,lasix.add Norvasc for high BP * . Review of Systems - Review of Systems Other: can not obatined due to intubated sedated state - Medications/Allergies Allergies/Adverse Reactions: Allergies Allergy/AdvReac Type Severity Reaction Status Date / Time No Known Drug Allergies Allergy Verified 02/08/18 21:03 Medications: Current Medications Acetaminophen (Tylenol) 650 mg PO Q4H PRN PRN Reason: Headache/Fever/Mild Pain (1-3) Albuterol/Ipratropium (Duoneb) 3 ml NEB [id number] PRN PRN Reason: SOB &/or Wheezing Albuterol/Ipratropium (Duoneb) 3 ml NEB [id number] [facility] Last Admin: 02/10/18 06:39 Dose: 3 ml Amlodipine Besylate (Norvasc) 5 mg PO DAILY [facility] Last Admin: 02/10/18 08:46 Dose: 5 mg Aspirin (Ecotrin) 325 mg PO DAILY [facility] Last Admin: 02/10/18 08:46 Dose: 325 mg Bisacodyl (Dulcolax) 10 mg PO DAILYPRN PRN PRN Reason: Constipation Bisacodyl (Dulcolax) 10 mg [place] DAILYPRN PRN PRN Reason: Constipation Calcium Carbonate (Tums) 1,000 mg PO Q4H PRN PRN Reason: Heartburn or Indigestion Clonidine (Catapres) 0.1 mg PO Q4H PRN PRN Reason: SBP > 160____ Famotidine (Pepcid) 20 mg PO BID [facility] Last Admin: 02/10/18 08:45 Dose: 20 mg Furosemide (Lasix) 40 mg SLOW IVP 0600,1400 [facility] Last Admin: 02/10/18 05:35 Dose: 40 mg Guaifenesin (Robitussin Sf) 200 mg PO Q4H PRN PRN Reason: Cough Hydralazine HCl (Apresoline) 10 mg SLOW IVP Q4H PRN PRN Reason: SBP > 180 and HR < 70 Cefepime HCl 1 gm/ Sodium (Chloride) 100 mls @ 200 mls/hr IVPB 0630,1830 [facility] Last Admin: 02/10/18 05:35 Dose: 100 mls Fentanyl Citrate 2,000 mcg/ (Sodium Chloride) 100 mls @ 0 mls/hr IV INF [facility]; Protocol Stop: 03/10/18 18:21 Last Admin: 02/09/18 21:56 Dose: 100 mls Fentanyl Citrate (Fentanyl Bolus) 250 mls @ 0 mls/hr IVPB PRN PRN PRN Reason: Breakthrough pain/agitation Stop: 03/10/18 18:21 Methylprednisolone Sodium Succinate (Solu-Medrol) 40 mg IVP Q6HR [facility] Last Admin: 02/10/18 11:24 Dose: 40 mg Miscellaneous Medication (Pharmacy To Dose) 1 each PO PRN PRN PRN Reason: Pharmacy to dose Discontinue Previous Narcotic Pain Medications And Benzodiazepines 1 each FS .ONE [facility] Stop: 03/10/18 18:21 Ondansetron HCl (Zofran) 4 mg IVP Q6H PRN PRN Reason: Nausea/Vomiting Prednisone (Prednisone) 40 mg PO QAM-WM [facility] Last Admin: 02/10/18 08:45 Dose: 40 mg Propofol (Diprivan) 1,000 mg IV INF PRN; Protocol PRN Reason: TO ACHIEVE GOAL RASS Stop: 03/10/18 18:21 Last Admin: 02/10/18 08:46 Dose: 1,000 mg Propofol (Diprivan Bolus) 20 mg IV Q5MIN PRN PRN Reason: BREAKTHROUGH AGITATION Stop: 03/10/18 18:21 Senna/Docusate Sodium (Senokot S) 2 tab PO BID PRN PRN Reason: Constipation Sodium Chloride ([place] Nasal [place] 0.65%) 0 ml EA NARE QIDPRN PRN PRN Reason: Nasal Congestion Sodium Chloride (Flush - Normal Saline) 10 ml IVF Q12HR [facility] Last Admin: 02/10/18 08:46 Dose: 10 ml Sodium Chloride (Flush - Normal Saline) 10 ml IVF PRN PRN PRN Reason: Saline Flush Warfarin Sodium (Coumadin) 5 mg PO 1700 [facility] Last Admin: 02/09/18 16:55 Dose: 5 mg
[2018-02-10] MEDS: fentaNYL Citrate/PF 2,000 MCG in Sodium Chloride 0.9% 60 ML IV SCH (15:42)
[2018-02-10] MEDS: Warfarin Sodium 5 MG TAB PO SCH (16:44)
--- NOTE | 2018-02-10 17:33 | PRG ---
DATE OF SERVICE: 02/10/2018 Evelio is stable overnight. He is 6 feet and 493 pounds. His vital signs are stable overnight. He is afebrile. Heart rate 66, blood pressure 160/85, respiratory rate in the teens. Lungs are distant, clear. Heart, distant S1 and S2. Abdomen is massive. Extremities with stasis changes. No asymmetry. LABORATORY DATA: White count 5.6, hemoglobin 12.7, platelets 139. Sodium 142, potassium 3.7, chloride 85, bicarb 42, BUN 29, creatinine 1.3. Blood gas; pH 7.46, CO2 of 78, PO2 of 64. IMPRESSION: 1. Obesity hypoventilation syndrome. 2. Possible pneumonia. 3. Congestive heart failure. 4. Life-threatening obesity. 5. Anticoagulation prior to admission for DVT. My best guess seeing him this one time is that he will end up with a tracheostomy. He is certainly not weanable today. Critical care time is 35 minutes. Job ID: [id number] MTDD
[2018-02-11] MEDS: Propofol 1,000 MG/100 ML VIAL IV PRN ×6 (02:00→22:53)
[2018-02-11 05:01] LABS: #Lymphocytes 0.3 thou/uL (1.20-3.40); #Monocytes 0.1 thou/uL (0.11-0.59); #Neutrophils 4.5 thou/uL (1.40-6.50); %Eosinophils 0.1 % (0.0-10.0); %Lymphocytes 6.5 % (21.0-51.0); %Monocytes 2.8 % (0.0-10.0); %Neutrophils 90.6 % (42.0-75.0); Mean Corpuscular HGB CONC 30.5 g/dL (32.0-36.0); Mean Corpuscular Volume 98.3 fL (78.0-98.0); Mean Platelet Volume 8.5 fL (7.4-10.4); Platelet Count 132 thou/uL (130-400); RBC Distribution Width 15.7 % (11.5-14.5); Red Blood Cell (RBC) Count 4.34 mill/uL (4.70-6.10)
[2018-02-11 05:02] LABS: Prothrombin Time 22.4 SEC (12.0-14.7)
[2018-02-11] MEDS: Furosemide 40 MG/4 ML VIAL SLOW IVP SCH ×2 (05:38→13:05)
[2018-02-11] MEDS: Cefepime 1 GM in Sodium Chloride 0.9% 100 ML IVPB SCH ×2 (05:39→18:04)
[2018-02-11 06:11] LABS: BUN (Urea Nitrogen) 35 mg/dL (8.4-25.7); Calc. Creatinine Clearance 194 mL/min (70-130); Estimated GFR-MDRD 59; Glucose 170 mg/dL (80-115)
[2018-02-11 06:22] LABS: Anion Gap 20 mmol/L (10-20); Carbon Dioxide 38 mmol/L (23-31); Chloride 86 mmol/L (98-107); Potassium 3.5 mmol/L (3.5-5.1); Sodium 140 mmol/L (136-145)
[2018-02-11 07:43] LABS: Actual Bicarbonate (HCO3a) 50.5 mEq/L (22-28); Base Excess (BEa) 23.6 mEq/L (-2.0 to +3.0); Calcium, Ionized 1.07 mmol/L (1.12-1.30); Carboxyhemoglobin (COHb) 1.2 gm% (0.0-3.0); Hemoglobin (Hb) 13.7 g/dL (14.0-18.0); Potassium - ABG Lab 3.25 mmol/L (3.70-5.30); pH, Arterial 7.53 (7.35-7.45)
[2018-02-11 07:44] LABS: CO2 Tension 62.6 mmHg (35.0-45.0)
[2018-02-11 07:45] LABS: O2 Tension (PaO2) 33.1 mmHg (> 80.0); Puncture Site RR
[2018-02-11] MEDS: fentaNYL Citrate/PF 2,000 MCG in Sodium Chloride 0.9% 60 ML IV SCH ×2 (08:16→22:53)
[2018-02-11] MEDS: Amlodipine 5 MG TAB PO SCH (08:57)
[2018-02-11] MEDS: Famotidine 20 MG TAB PO SCH ×2 (08:57→21:33)
[2018-02-11] MEDS: Aspirin 325 mg Enteric Coated Tablet PO SCH (08:58)
[2018-02-11] MEDS: predniSONE 20 MG TAB PO SCH (08:58)
--- NOTE | 2018-02-11 08:59 | RAD ---
FRONTAL VIEW CHEST: Date: 02/11/18 COMPARISON: Previous day. INDICATION: Respiratory failure, ventilated patient, follow-up. FINDINGS: Progressive, diffuse opacification of each hemithorax, with pleural and parenchymal components noted. There is mild to moderate opacification at the inferior right hemithorax, indicating pleural fluid. Supportive lines and tubes are grossly stable. No additional significant interval change. IMPRESSION: Progressive opacification which may be related to increasing pleural fluid, with findings to indicate fulminant edema related to decompensated CHF. Correlate clinically. Continued follow-up is recommend ed. POS: NIEVES
[2018-02-11] MEDS ORDERED: acetaZOLAMIDE Sodium 500 MG in Sodium Chloride 0.9% 50 ML IVPB SCH (09:15)
[2018-02-11] MEDS: Ondansetron PF 4 MG/2 ML Vial IVP PRN (09:25)
--- NOTE | 2018-02-11 09:34 | PRG ---
DATE OF SERVICE: 02/11/2018 SERVICE: Pulmonary Medicine INTERVAL HISTORY: The patient is doing fine from respiratory standpoint. His oxygen requirements have improved dramatically. He cannot provide any additional elements of the history at this point. Otherwise, there has been no interval change to his condition. OBJECTIVE: VITAL SIGNS: Afebrile, pulse 60, blood pressure 166/96, respirations 20, saturation 96% on 41% FiO2 and a PEEP of 5. GENERAL: The patient is intubated. He is requiring some sedation, but he is comfortable. With stimulation, he will wake up for more than 10 seconds before drifting off to sleep again. HEENT: Normocephalic and atraumatic. Sclerae are white. Conjunctivae are pink. Oral mucosa is moist without lesions. LUNGS: Decent air entry. Crackles are present. There is a slightly prolonged expiratory phase. No wheezing is appreciated. HEART: Normal rate, regular. ABDOMEN: Soft, nontender, and nondistended. Bowel sounds are positive. MUSCULOSKELETAL: There is no cyanosis or clubbing. There is 1 to 2+ pitting throughout and there are chronic stasis changes. GENITOURINARY: Slaughter catheter in place. NEUROLOGIC: Grossly nonfocal. LABORATORY DATA: WBC 5.0, hemoglobin 13.0, platelets 132,000. INR of 2.0. PH 7.53, pCO2 of 63, pO2 of 33, but there is a VBG. Creatinine is downtrending to 1.32. Basic metabolic profile is otherwise unremarkable. His bicarb is improving to 38. Chloride 86 and improving. BNP 763, which is improving. Respiratory virus panel is unremarkable. Blood cultures x2 are unremarkable. IMAGING STUDIES: Echocardiogram demonstrates normal ejection fraction. The RV is severely dilated. Left ventricular size and function are normal. Left atrial size is normal. Dilated IVC. ASSESSMENT: 1. Acute on chronic hypoxic and hypercapnic respiratory failure. 2. Morbid obesity. 3. Cor pulmonale, likely secondary to respiratory failure, and sleep apnea. 4. Community-acquired pneumonia, suspected. DISCUSSION AND PLAN: We will continue to diurese the patient down to euvolemia. Pulmonary Critical Care will continue to follow along. I will give the patient a dose of acetazolamide to see if we can get rid of some of his bicarb. He remains alkalotic. As such, we will back off on his respirations. His resting pCO2 should likely be close to 80. Pulmonary Critical Care will continue to follow along while the patient remains in this location, but at this point, he is not ready for a spontaneous breathing trial because he has persistently elevated oxygen requirements. CRITICAL CARE TIME: 30 minutes. Job ID: [id number]
--- NOTE | 2018-02-11 11:58 | PDOC.PN ---
- Subjective Encounter Start Date: 02/11/18 Encounter Start Time: 11:56 Subjective: Remains intubated and on mild sedation.can not follow any commands -: no ON events. care discussed w RN at bedside - Objective Resuscitation Status - Order Detail: 02/08/18 16:59 Resuscitation Status Routine Resuscitation Status: FULL: Full Resuscitation Discussed with: discussed with patient and family MAR Reviewed: Yes Vital Signs & Weight: Vital Signs (12 hours) Temp Pulse Resp BP Pulse Ox 02/11/18 10:37 66 176/86 H 02/11/18 10:00 21 H 02/11/18 08:57 60 166/96 H 02/11/18 08:00 98.8 F 02/11/18 07:55 96 02/11/18 07:36 20 02/11/18 07:07 60 166/96 H 98 02/11/18 07:06 59 L 16 99 02/11/18 06:00 24 H 02/11/18 04:00 99.0 F 16 02/11/18 02:00 17 02/11/18 00:00 99.3 F 16 Weight Admit Weight 493 lb Weight 493 lb Most Recent Monitor Data Heart Rate from ECG 65 NIBP 178/93 NIBP BP-Mean 121 Respiration from ECG 11 SpO2 97 I&O: 02/10/18 02/11/18 02/12/18 06:59 06:59 06:59 Intake Total 471.2 647.4 210 Output Total 2625 3020 1620 Balance -2153.8 -2372.6 -1410 Result Diagrams: 02/11/18 04:47 02/11/18 04:47 Additional Labs: Microbiology 02/08/18 22:04 Nasopharyngeal swab Respiratory Virus Panel (PCR) - Final 02/08/18 16:01 Venous blood - Left Hand Blood Culture - Preliminary NO GROWTH AT 48 HOURS 02/08/18 15:55 Venous blood - Left Hand Blood Culture - Preliminary NO GROWTH AT 48 HOURS Laboratory Tests 02/08/18 02/08/18 02/09/18 13:54 13:54 04:53 Creatinine 1.38 H 1.33 H B-Natriuretic Peptide 1331.5 H 02/10/18 02/10/18 02/11/18 04:43 04:43 04:47 Creatinine 1.30 1.25 B-Natriuretic Peptide 763.0 H Radiology Reviewed by me: Yes (ECHO-R sided heart failure, as expected) Phys Exam - Physical Examination Constitutional: NAD HEENT: PERRLA, moist MMs, sclera anicteric, oral pharynx no lesions ETT Neck: no nodes, no JVD, supple, full ROM Respiratory: no wheezing, no rales, no rhonchi, clear to auscultation bilateral Cardiovascular: RRR, no significant murmur Gastrointestinal: soft, no distention, positive bowel sounds morbidly obese Musculoskeletal: pulses present, edema present (extensive chr venostasis changes in legs b/l) Neurological: moves all 4 limbs in restraints Deviation from normal: sedated Skin: no rash Dx/Plan (1) Acute on chronic respiratory failure with hypoxia and hypercapnia Code(s): J96.21 - ACUTE AND CHRONIC RESPIRATORY FAILURE WITH HYPOXIA; J96.22 - ACUTE AND CHRONIC RESPIRATORY FAILURE WITH HYPERCAPNIA Status: Acute Comment : Multifactorial.Due to Severe CHUCHO with resultant R sided Heart failure /cor pulmonale.Vent support (2) Acute CHF (congestive heart failure) Code(s): I50.9 - HEART FAILURE, UNSPECIFIED Status: Acute Qualifiers: Heart failure type: unspecified Qualified Code(s): I50.9 - Heart failure, unspecified Comment: on diuretics.Avoid vasodilators in the setting of R sided heart failure.EF preserved (3) Metabolic alkalosis Code(s): E87.3 - ALKALOSIS Status: Acute Comment: Due to lasix and compensatory from respiratry acidosis (4) Steroid-induced hyperglycemia Code(s): R73.9 - HYPERGLYCEMIA, UNSPECIFIED; T38.0X5A - ADVERSE EFFECT OF GLUCOCORT/SYNTH ANALOG, INIT Status: Acute Comment: Add ISS w Accuchecks (5) Elevated troponin Code(s): R74.8 - ABNORMAL LEVELS OF OTHER SERUM ENZYMES Status: Acute Comment: likley demand ischemia from Acute CHF (6) Chronic anticoagulation Code(s): Z79.01 - 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 Status: Chronic Comment: INR therapeutic (7) CHUCHO (obstructive sleep apnea) Code(s): G47.33 - OBSTRUCTIVE SLEEP APNEA (ADULT) (PEDIATRIC) Status: Chronic (8) Chronic cutaneous venous stasis ulcer Code(s): I83.009 - VARICOSE VEINS OF UNSP LOWER EXTREMITY W ULCER OF UNSP SITE Status: Chronic (9) Morbid obesity Code(s): E66.01 - MORBID (SEVERE) OBESITY DUE TO EXCESS CALORIES Status: Chronic (10) H/O deep venous thrombosis Code(s): Z86.718 - PERSONAL HISTORY OF OTHER VENOUS THROMBOSIS AND EMBOLISM Status: Chronic (11) CKD (chronic kidney disease) stage 3, GFR 30-59 ml/min Status: Chronic - Plan continue antibiotics, PT/OT, social worker school, respiratory therapy, DVT proph w/ SCDs agree w Diamoxx. HCO3 better today.cont aggressive diuresis -: on empiric ABx.on iv steroids. -: BP higher side. add low dose nadege-i & monitor renal function -: Avoid BB due to HR in 50s -: Vent weaning per PCCM.HD stable. AM labs * . Review of Systems - Review of Systems Other: can not be obtained due to sedation/intubation.opens eyes but falls back asleep - Medications/Allergies Allergies/Adverse Reactions: Allergies Allergy/AdvReac Type Severity Reaction Status Date / Time No Known Drug Allergies Allergy Verified 02/08/18 21:03 Medications: Current Medications Acetaminophen (Tylenol) 650 mg PO Q4H PRN PRN Reason: Headache/Fever/Mild Pain (1-3) Albuterol/Ipratropium (Duoneb) 3 ml NEB [id number] PRN PRN Reason: SOB &/or Wheezing Albuterol/Ipratropium (Duoneb) 3 ml NEB [id number] [facility] Last Admin: 02/11/18 07:06 Dose: 3 ml Amlodipine Besylate (Norvasc) 5 mg PO DAILY [facility] Last Admin: 02/11/18 08:57 Dose: 5 mg Aspirin (Ecotrin) 325 mg PO DAILY [facility] Last Admin: 02/11/18 08:58 Dose: 325 mg Bisacodyl (Dulcolax) 10 mg PO DAILYPRN PRN PRN Reason: Constipation Bisacodyl (Dulcolax) 10 mg [place] DAILYPRN PRN PRN Reason: Constipation Calcium Carbonate (Tums) 1,000 mg PO Q4H PRN PRN Reason: Heartburn or Indigestion Clonidine (Catapres) 0.1 mg PO Q4H PRN PRN Reason: SBP > 160____ Famotidine (Pepcid) 20 mg PO BID [facility] Last Admin: 02/11/18 08:57 Dose: 20 mg Furosemide (Lasix) 40 mg SLOW IVP 0600,1400 [facility] Last Admin: 02/11/18 05:38 Dose: 40 mg Guaifenesin (Robitussin Sf) 200 mg PO Q4H PRN PRN Reason: Cough Hydralazine HCl (Apresoline) 10 mg SLOW IVP Q4H PRN PRN Reason: SBP > 180 and HR < 70 Cefepime HCl 1 gm/ Sodium (Chloride) 100 mls @ 200 mls/hr IVPB 0630,1830 [facility] Last Admin: 02/11/18 05:39 Dose: 100 mls Fentanyl Citrate 2,000 mcg/ (Sodium Chloride) 100 mls @ 0 mls/hr IV INF [facility]; Protocol Stop: 03/10/18 18:21 Last Admin: 02/11/18 08:16 Dose: 100 mls Fentanyl Citrate (Fentanyl Bolus) 250 mls @ 0 mls/hr IVPB PRN PRN PRN Reason: Breakthrough pain/agitation Stop: 03/10/18 18:21 Acetazolamide Sodium 500 mg/ (Sodium Chloride) 50 mls @ 100 mls/hr IVPB ONE [facility] Stop: 02/11/18 12:00 Last Admin: 02/11/18 09:45 Dose: 50 mls Miscellaneous Medication (Pharmacy To Dose) 1 each PO PRN PRN PRN Reason: Pharmacy to dose Discontinue Previous Narcotic Pain Medications And Benzodiazepines 1 each FS .ONE [facility] Stop: 03/10/18 18:21 Ondansetron HCl (Zofran) 4 mg IVP Q6H PRN PRN Reason: Nausea/Vomiting Last Admin: 02/11/18 09:25 Dose: 4 mg Potassium Chloride (Klor-Con) 40 meq PO Q4H [facility] Stop: 02/11/18 13:16 Last Admin: 02/11/18 09:39 Dose: 40 meq Prednisone (Prednisone) 40 mg PO QAM-[facility] Last Admin: 02/11/18 08:58 Dose: 40 mg Propofol (Diprivan) 1,000 mg IV INF PRN; Protocol PRN Reason: TO ACHIEVE GOAL RASS Stop: 03/10/18 18:21 Last Admin: 02/11/18 09:25 Dose: 1,000 mg Propofol (Diprivan Bolus) 20 mg IV Q5MIN PRN PRN Reason: BREAKTHROUGH AGITATION Stop: 03/10/18 18:21 Senna/Docusate Sodium (Senokot S) 2 tab PO BID PRN PRN Reason: Constipation Sodium Chloride ([place] Nasal [place] 0.65%) 0 ml EA NARE QIDPRN PRN PRN Reason: Nasal Congestion Sodium Chloride (Flush - Normal Saline) 10 ml IVF Q12HR [facility] Last Admin: 02/11/18 08:58 Dose: 10 ml Sodium Chloride (Flush - Normal Saline) 10 ml IVF PRN PRN PRN Reason: Saline Flush Warfarin Sodium (Coumadin) 5 mg PO 1700 [facility] Last Admin: 02/10/18 16:44 Dose: 5 mg
[2018-02-11] MEDS ORDERED: Dextrose 50% Abboject 50 ML SYRINGE SLOW IVP PRN (12:05)
[2018-02-11] MEDS ORDERED: Dextrose 5% in Water 1,000 ML IV PRN (12:05)
[2018-02-11] MEDS ORDERED: HumaLOG 300 UNITS/3 ML VIAL SC PRN ×2 (12:05)
--- NOTE | 2018-02-11 15:06 | PQF ---
VALARIE YOU DR. [id number] CLINICAL DOCUMENTATION IMPROVEMENT CLARIFICATION FORM: ICD-10 Updated PLEASE DO AN ADDENDUM TO THE PROGRESS NOTE WITH ANY DOCUMENTATION UPDATES OR ADDITIONS AND CARRY THROUGH TO DC SUMMARY. THANK YOU. DATE: 02-11-18 ATTN: DR. TRAVIS / DR. WOODWARD / DR. ABREU Please exercise your independent, professional judgment in responding to the clarification form. Clinical indicators are provided on the bottom of this form for your review Please check appropriate box(s): ____x___ I (concur) with the Nursing Assessment findings as stated below. [ ] Pressure Ulcer: (Stage I: Erythema; Stage II: Partial thickness; Stage III : Full thickness; Stage IV: Necrosis to muscle/bone) [ ] Location: POA: [ ] Yes [ ] No[ ] Unable to determine Stage (I to IV): (Left Right Bilateral____ _ N/A ) [ ] Location: POA: [ ] Yes [ ] No[ ] Unable to determine Stage (I to IV): (Left Right Bilateral____ _ N/A ) [ ] Location: POA: [ ] Yes [ ] No[ ] Unable to determine Stage (I to IV): (Left Right Bilateral____ _ N/A ) [ ] No pressure ulcer diagnosis [ ] Other diagnosis [ ] Unable to determine In addition, please specify: Present on Admission (POA): [ x ] Yes [ ] No [ ] Unable to determine For continuity of documentation, please document condition throughout progress notes and discharge summary. Thank You. CLINICAL INDICATORS - SIGNS / SYMPTOMS / LABS 02-09 @ 0800 NURSING ASSESSMENT: * PU STAGE 2 RIGHT GLUTEAL FOLD * PU STAGE 2 LEFT GLUTE * SCG PU STAGE 2; RISK FACTORS: H&P (ANGY): * MORBID OBESITY * LARGELY BED BOUND AND CAN WALK ONLY FROM BED TO BEDSIDE COMMODE W/ DIFFICULTY TREATMENTS: 02-09 @ 0800 NURSING ASSESSMENT: ON CONTINUOUS ROTATING BED THANK YOU, CITLALI (This form is maintained as a part of the permanent medical record) 2015 [employer]. All Rights Reserved Citlali Horowitz RN, BS [email or web address] [facility]
[2018-02-11] MEDS ORDERED: Carvedilol 3.125 MG TAB PO SCH (17:00)
[2018-02-11] MEDS: Warfarin Sodium 5 MG TAB PO SCH (18:05)
[2018-02-11] MEDS: Lisinopril 2.5 MG TAB PO SCH (21:33)
[2018-02-12 05:12] LABS: #Lymphocytes 0.3 thou/uL (1.20-3.40); #Monocytes 0.2 thou/uL (0.11-0.59); #Neutrophils 5.2 thou/uL (1.40-6.50); %Eosinophils 0.3 % (0.0-10.0); %Lymphocytes 5.9 % (21.0-51.0); %Monocytes 3.5 % (0.0-10.0); %Neutrophils 90.3 % (42.0-75.0); Hemoglobin 12.4 g/dL (14.0-18.0); Mean Corpuscular HGB CONC 29.8 g/dL (32.0-36.0); Mean Corpuscular Hemoglobin 30.3 pg (27.0-31.0); Mean Platelet Volume 8.2 fL (7.4-10.4); Platelet Count 126 thou/uL (130-400); RBC Distribution Width 15.7 % (11.5-14.5); Red Blood Cell (RBC) Count 4.08 mill/uL (4.70-6.10); White Blood Cell (WBC) Count 5.8 thou/uL (4.8-10.8)
[2018-02-12 05:16] LABS: Prothrombin Time 22.3 SEC (12.0-14.7)
[2018-02-12 05:27] LABS: BUN (Urea Nitrogen) 39 mg/dL (8.4-25.7); Calc. Creatinine Clearance 204 mL/min (70-130); Calcium 8.8 mg/dL (7.8-10.44); Estimated GFR-MDRD 62; Glucose 153 mg/dL (80-115); Magnesium 2.1 mg/dL (1.6-2.6); Phosphorus 4.3 mg/dL (2.3-4.7)
[2018-02-12 05:36] LABS: Anion Gap 17 mmol/L (10-20); Chloride 87 mmol/L (98-107); Potassium 3.9 mmol/L (3.5-5.1); Sodium 142 mmol/L (136-145)
[2018-02-12 05:39] LABS: Carbon Dioxide 42 mmol/L (23-31)
[2018-02-12] MEDS: Cefepime 1 GM in Sodium Chloride 0.9% 100 ML IVPB SCH ×2 (06:01→17:20)
[2018-02-12] MEDS: Furosemide 40 MG/4 ML VIAL SLOW IVP SCH (06:01)
[2018-02-12] MEDS: Propofol 1,000 MG/100 ML VIAL IV PRN ×2 (06:05→09:26)
[2018-02-12 07:39] LABS: Base Excess (BEa) 21.6 mEq/L (-2.0 to +3.0); Calcium, Ionized 1.08 mmol/L (1.12-1.30); Carboxyhemoglobin (COHb) 1.7 gm% (0.0-3.0); Hemoglobin (Hb) 13.8 g/dL (14.0-18.0); Potassium - ABG Lab 3.68 mmol/L (3.70-5.30); pH, Arterial 7.35 (7.35-7.45)
[2018-02-12 07:42] LABS: CO2 Tension 99.2 mmHg (35.0-45.0); Puncture Site RRA
[2018-02-12] MEDS: Aspirin 325 mg Enteric Coated Tablet PO SCH (09:23)
[2018-02-12] MEDS: predniSONE 20 MG TAB PO SCH (09:23)
[2018-02-12] MEDS: Famotidine 20 MG TAB PO SCH ×2 (09:23→20:29)
[2018-02-12] MEDS: Lisinopril 2.5 MG TAB PO SCH ×2 (09:24→20:28)
[2018-02-12] MEDS: Amlodipine 5 MG TAB PO SCH (09:24)
--- NOTE | 2018-02-12 10:35 | PRG ---
DATE OF SERVICE: 02/12/2018 SUBJECTIVE: Mr. Fraser is a morbidly obese gentleman over 66 BMI, 493 pounds, sedated with fentanyl and Diprivan, which had been turned off this morning. OBJECTIVE: GENERAL: He barely opens his eyes. VITAL SIGNS: His blood pressure is 105/57, pulse is 50, temperature 98, and respirations 13. CHEST: Decreased breath sounds. No wheezing. CARDIAC: Normal S1 and S2. No gallops. ABDOMEN: No masses. LABORATORY DATA: White count 5000, hemoglobin and hematocrit are 12 and 41, and platelet count is normal. His PO2 was 63, pCO2 was 99, pH 7.35, at a rate of 10 and 40%, probably his baseline. Bicarb was 42. Echo was normal. Glucose 153. IMPRESSION: 1. Morbid obesity. 2. Sleep apnea. 3. Respiratory failure. 4. Severe deconditioning, stasis. PLAN: I am going to discuss with his family regarding ongoing care whether he is weanable, he needs a trach for long-term treatment plan. He has marked metabolic alkalosis and we will try avoid giving him diuretics, probably best option is to give him some Diamox for a few days. Continue anticoagulation. One-half hour critical time. Job ID: [id number]
[2018-02-12 12:45] LABS: Bicarbonate (HCO3v) 53.5 mmol/L (22.0-29.0); CO2 Tension (PvCO2) 99.9 mmHg (41.0-51.0); O2 Tension (PvO2) 121.3 mmHg (35.0-45.0); pH (Venous) 7.337 (7.35-7.45)
[2018-02-12 12:46] LABS: Base Excess-Venous 21.1 mmol/L (0 (+/- 2.5)); Calcium, Ionized 1.04 mmol/L (1.12-1.32); Hemoglobin - Calc 15.1 g/dL (12.0-18.0); Potassium 4.2 mmol/L (3.4-4.7)
[2018-02-12 13:08] LABS: Base Excess (BEa) 21.6 mEq/L (-2.0 to +3.0); Calcium, Ionized 1.09 mmol/L (1.12-1.30); Carboxyhemoglobin (COHb) 1.7 gm% (0.0-3.0); Hemoglobin (Hb) 14.2 g/dL (14.0-18.0); Potassium - ABG Lab 3.83 mmol/L (3.70-5.30); pH, Arterial 7.32 (7.35-7.45)
[2018-02-12 13:09] LABS: CO2 Tension 106.7 mmHg (35.0-45.0); O2 Tension (PaO2) 50.9 mmHg (> 80.0)
[2018-02-12 13:10] LABS: ALV-art Gradient 108.055 (0-20); Puncture Site RR
--- NOTE | 2018-02-12 17:14 | PDOC.PN ---
- Subjective Encounter Start Date: 02/12/18 Encounter Start Time: 08:45 Mr. Fraser was seen today in follow-up of acute respiratory failure. He is currently intubated. He did not follow commands for me this morning. - Objective Resuscitation Status - Order Detail: 02/08/18 16:59 Resuscitation Status Routine Resuscitation Status: FULL: Full Resuscitation Discussed with: discussed with patient and family MAR Reviewed: Yes Vital Signs & Weight: Vital Signs (12 hours) Temp Pulse Pulse Pulse Resp BP BP 02/12/18 16:00 98.1 F 12 02/12/18 15:05 71 83 127/71 02/12/18 14:50 82 113/71 02/12/18 14:00 15 02/12/18 12:03 72 10 L 02/12/18 12:00 97.8 F 14 02/12/18 10:27 57 L 113/54 L 02/12/18 10:00 11 L 02/12/18 09:24 50 L 105/57 L 02/12/18 08:00 11 L 02/12/18 07:08 97.9 F 02/12/18 06:24 50 L 11 L 02/12/18 06:21 50 L 107/61 02/12/18 06:00 11 L BP Pulse Ox Pulse Ox Pulse Ox 02/12/18 16:00 02/12/18 15:05 108/73 91 L 91 L 02/12/18 14:50 02/12/18 14:00 02/12/18 12:03 94 L 02/12/18 12:00 02/12/18 10:27 02/12/18 10:00 02/12/18 09:24 02/12/18 08:00 98 02/12/18 07:08 02/12/18 06:24 96 02/12/18 06:21 96 02/12/18 06:00 Weight Admit Weight 493 lb Weight 493 lb Most Recent Monitor Data Heart Rate from ECG 72 NIBP 116/68 NIBP BP-Mean 84 Respiration from ECG 5 SpO2 93 I&O: 02/11/18 02/12/18 02/13/18 06:59 06:59 06:59 Intake Total 647.4 1699.6 52.1 Output Total 3020 3085 1975 Balance -2372.6 -1385.4 -1922.9 Result Diagrams: 02/12/18 04:30 02/12/18 04:30 Additional Labs: Accuchecks 02/11/18 02/11/18 21:37 13:17 POC Glucose 128 H 156 H Phys Exam - Physical Examination HEENT: PERRLA Respiratory: no wheezing, no rhonchi + rales at the bases, and coarse breath sounds Cardiovascular: RRR, no significant murmur, no rub Gastrointestinal: soft, non-tender, no distention, positive bowel sounds Musculoskeletal: edema present + generalized edema in both his upper and lower extremities Dx/Plan (1) Acute on chronic respiratory failure with hypoxia and hypercapnia Code(s): J96.21 - ACUTE AND CHRONIC RESPIRATORY FAILURE WITH HYPOXIA; J96.22 - ACUTE AND CHRONIC RESPIRATORY FAILURE WITH HYPERCAPNIA Status: Acute Comment : Multifactorial.Due to Severe CHUCHO with resultant R sided Heart failure /cor pulmonale.Vent support (2) Cor pulmonale, chronic Code(s): I27.81 - COR PULMONALE (CHRONIC) Status: Acute (3) Acute CHF (congestive heart failure) Code(s): I50.9 - HEART FAILURE, UNSPECIFIED Status: Acute Qualifiers: Heart failure type: unspecified Qualified Code(s): I50.9 - Heart failure, unspecified Comment: on diuretics.Avoid vasodilators in the setting of R sided heart failure.EF preserved (4) CHUCHO (obstructive sleep apnea) Code(s): G47.33 - OBSTRUCTIVE SLEEP APNEA (ADULT) (PEDIATRIC) Status: Chronic (5) Morbid obesity Code(s): E66.01 - MORBID (SEVERE) OBESITY DUE TO EXCESS CALORIES Status: Chronic (6) Chronic anticoagulation Code(s): Z79.01 - BOX FEEDER (CURRENT) USE OF ANTICOAGULANTS Status: Chronic Comment: INR therapeutic (7) H/O deep venous thrombosis Code(s): Z86.718 - PERSONAL HISTORY OF OTHER VENOUS THROMBOSIS AND EMBOLISM Status: Chronic - Plan * Acute on chronic respiratory failure- patient is not yet weanable- possible Trach placement * Acute on chronic CHF with preserved EF- his volume status has improved * Metabolic alkalosis- agree with avoiding over diureses, and agree with Diamox * Probable Pneumonia- continue Cefepime * 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
[2018-02-12] MEDS: Warfarin Sodium 5 MG TAB PO SCH (17:20)
[2018-02-12] MEDS: fentaNYL Citrate/PF 2,000 MCG in Sodium Chloride 0.9% 60 ML IV SCH (18:31)
[2018-02-13 04:54] LABS: INR-International Normal Ratio 2.2; Prothrombin Time 24.1 SEC (12.0-14.7)
[2018-02-13 04:55] LABS: #Basophils 0.1 thou/uL (0.0-0.2); #Lymphocytes 0.4 thou/uL (1.20-3.40); #Monocytes 0.4 thou/uL (0.11-0.59); #Neutrophils 7.6 thou/uL (1.40-6.50); %Basophils 1.2 % (0.0-1.0); %Eosinophils 0.1 % (0.0-10.0); %Lymphocytes 4.4 % (21.0-51.0); %Monocytes 4.9 % (0.0-10.0); %Neutrophils 89.4 % (42.0-75.0); Hemoglobin 13.5 g/dL (14.0-18.0); Mean Corpuscular HGB CONC 29.4 g/dL (32.0-36.0); Mean Corpuscular Hemoglobin 29.9 pg (27.0-31.0); Mean Platelet Volume 8.8 fL (7.4-10.4); Platelet Count 110 thou/uL (130-400); RBC Distribution Width 15.3 % (11.5-14.5); Red Blood Cell (RBC) Count 4.52 mill/uL (4.70-6.10); White Blood Cell (WBC) Count 8.5 thou/uL (4.8-10.8)
[2018-02-13 05:10] LABS: BUN (Urea Nitrogen) 40 mg/dL (8.4-25.7); Calc. Creatinine Clearance 222 mL/min (70-130); Calcium 9.1 mg/dL (7.8-10.44); Estimated GFR-MDRD 69; Glucose 133 mg/dL (80-115); Magnesium 2.2 mg/dL (1.6-2.6)
[2018-02-13 05:11] LABS: Phosphorus 3.6 mg/dL (2.3-4.7)
[2018-02-13 05:19] LABS: Anion Gap 13 mmol/L (10-20); Chloride 86 mmol/L (98-107); Potassium 3.5 mmol/L (3.5-5.1); Sodium 141 mmol/L (136-145)
[2018-02-13 05:22] LABS: Carbon Dioxide 46 mmol/L (23-31)
[2018-02-13] MEDS: Cefepime 1 GM in Sodium Chloride 0.9% 100 ML IVPB SCH ×2 (06:15→17:31)
[2018-02-13 07:25] LABS: Actual Bicarbonate (HCO3a) 49.8 mEq/L (22-28); Base Excess (BEa) 18.2 mEq/L (-2.0 to +3.0); Calcium, Ionized 1.11 mmol/L (1.12-1.30); Carboxyhemoglobin (COHb) 2.5 gm% (0.0-3.0); Hemoglobin (Hb) 14.7 g/dL (14.0-18.0); Potassium - ABG Lab 3.65 mmol/L (3.70-5.30); pH, Arterial 7.33 (7.35-7.45)
[2018-02-13 07:32] LABS: O2 Tension (PaO2) 58.6 mmHg (> 80.0)
[2018-02-13 07:33] LABS: Puncture Site RRA
[2018-02-13] MEDS ORDERED: DC Sedation Protocol FS ONE ×2 (08:08→08:19)
--- NOTE | 2018-02-13 09:10 | PRG ---
DATE OF SERVICE: 02/13/2018 SUBJECTIVE: Morbidly obese gentleman, 62-year-old, who apparently weighs 493 pounds. OBJECTIVE: GENERAL: This morning while he was extubated, he is awake, responsive. VITAL SIGNS: On 4 L, sats are 87%; blood pressure 115/70; respirations 18; and pulse 80. CHEST: Decreased breath sounds. CARDIAC: Normal S1 and S2. No gallops. ABDOMEN: No masses. LABORATORY DATA: INR is 2.2. White count 8000, H and H 8 and 24, platelet count 110. PO2 is 58, pCO2 is 97%, pH of 7.33 is compensated, and his bicarb is 46, BUN is 40. IMPRESSION: 1. Morbid obesity. 2. Respiratory failure. 3. Pulmonary hypertension, stasis. 4. Marked respiratory acidosis. PLAN: The patient is to decide whether he wants a trach more than likely that is the best option for him at this stage. Even though he is extubated, it is very unlikely he is going to have any meaningful activity without a trach. Still going to require nocturnal ventilation. His family is at the bedside including his [id number]. They are going to make decision soon about his trach. If he agreed, we will have to hold the Coumadin. In the meantime, continue antibiotics. Avoid diuretics. Continue Diamox. One half hour critical care time. Job ID: [id number]
[2018-02-13] MEDS: predniSONE 20 MG TAB PO SCH (09:34)
[2018-02-13] MEDS: Amlodipine 5 MG TAB PO SCH (09:34)
[2018-02-13] MEDS: Aspirin 325 mg Enteric Coated Tablet PO SCH (09:34)
[2018-02-13] MEDS: Lisinopril 2.5 MG TAB PO SCH ×2 (09:34→20:27)
[2018-02-13] MEDS: acetaZOLAMIDE Sodium 500 MG in Sodium Chloride 0.9% 50 ML IVPB SCH (09:35)
[2018-02-13] MEDS: Famotidine 20 MG TAB PO SCH ×2 (09:35→20:27)
--- NOTE | 2018-02-13 11:14 | PDOC.PN ---
- Subjective Encounter Start Date: 02/13/18 Encounter Start Time: 11:12 Mr. Fraser was seen today in follow-up of acute respiratory failure. He has been extubated. He is awake and alert. When asked how he feels he says he has been better. - Objective Resuscitation Status - Order Detail: 02/08/18 16:59 Resuscitation Status Routine Resuscitation Status: FULL: Full Resuscitation Discussed with: discussed with patient and family MAR Reviewed: Yes Vital Signs & Weight: Vital Signs (12 hours) Temp Pulse Resp BP Pulse Ox 02/13/18 09:34 89 02/13/18 08:21 88 L 02/13/18 08:05 89 19 72 L 02/13/18 08:00 90 L 02/13/18 07:00 97.8 F 02/13/18 06:44 86 16 97 02/13/18 06:42 84 124/84 02/13/18 06:00 12 02/13/18 04:00 98.2 F 12 02/13/18 02:21 94 02/13/18 02:00 14 02/13/18 00:28 73 16 98 02/13/18 00:00 16 Weight Admit Weight 493 lb Weight 493 lb Most Recent Monitor Data Heart Rate from ECG 92 NIBP 136/73 NIBP BP-Mean 94 Respiration from ECG 25 SpO2 84 I&O: 02/12/18 02/13/18 02/14/18 06:59 06:59 06:59 Intake Total 1699.6 455.1 40 Output Total 3085 3065 265 Balance -1385.4 -2609.9 -225 Result Diagrams: 02/13/18 04:41 02/13/18 04:41 Additional Labs: Accuchecks 02/13/18 02/13/18 02/12/18 05:50 00:14 18:25 POC Glucose 127 H 122 H 140 H Phys Exam - Physical Examination HEENT: PERRLA Respiratory: no wheezing + rhonchi bilaterally, and rales at the bases Cardiovascular: RRR, no significant murmur, no rub Gastrointestinal: soft, non-tender, no distention, positive bowel sounds Musculoskeletal: pulses present, edema present + chronic venous stasis changes Neurological: non-focal, moves all 4 limbs Dx/Plan (1) Acute on chronic respiratory failure with hypoxia and hypercapnia Code(s): J96.21 - ACUTE AND CHRONIC RESPIRATORY FAILURE WITH HYPOXIA; J96.22 - ACUTE AND CHRONIC RESPIRATORY FAILURE WITH HYPERCAPNIA Status: Acute Comment : Multifactorial.Due to Severe CHUCHO with resultant R sided Heart failure /cor pulmonale.Vent support (2) Cor pulmonale, chronic Code(s): I27.81 - COR PULMONALE (CHRONIC) Status: Acute (3) Acute CHF (congestive heart failure) Code(s): I50.9 - HEART FAILURE, UNSPECIFIED Status: Acute Qualifiers: Heart failure type: unspecified Qualified Code(s): I50.9 - Heart failure, unspecified Comment: on diuretics.Avoid vasodilators in the setting of R sided heart failure.EF preserved (4) CHUCHO (obstructive sleep apnea) Code(s): G47.33 - OBSTRUCTIVE SLEEP APNEA (ADULT) (PEDIATRIC) Status: Chronic (5) Morbid obesity Code(s): E66.01 - MORBID (SEVERE) OBESITY DUE TO EXCESS CALORIES Status: Chronic (6) Chronic anticoagulation Code(s): Z79.01 - INTERMEDIATE (CURRENT) USE OF ANTICOAGULANTS Status: Chronic Comment: INR therapeutic (7) H/O deep venous thrombosis Code(s): Z86.718 - PERSONAL HISTORY OF OTHER VENOUS THROMBOSIS AND EMBOLISM Status: Chronic - Plan * Acute on chronic respiratory failure- improved. He is now extubated * Acute on chronic CHF preserved EF- stable * Cor Pulmonale-likely from severe CHUCHO- The patien is being considered for tracheostomy placement, if he fails a trial of BIPAP * Continue Diamox for Alkalosis * Presumed Pneumonia- continue Cefepime * DVT- on coumadin- INR is 2.2 today * Mobilize as tolerated
--- NOTE | 2018-02-13 15:19 | EKG ---
Test Reason : ER INDICATION Blood Pressure : / mmHG Vent. Rate : 074 BPM Atrial Rate : 074 BPM P-R Int : 198 ms QRS Dur : 162 ms QT Int : 450 ms P-R-T Axes : 071 109 011 degrees QTc Int : 499 ms Normal sinus rhythm Right bundle branch block Marked T-wave abnormality, consider inferolateral ischemia Abnormal ECG Confirmed by GINETTE DONNELLY M.D. ([id number]), visual effects editor [employer]E CHI ([id number]) on 02/13/2018 3:18:55 PM Referred By: TETO Confirmed By:GINETTE DONNELLY M.D.
[2018-02-14 05:13] LABS: INR-International Normal Ratio 2.6; Prothrombin Time 28.2 SEC (12.0-14.7)
[2018-02-14 05:17] LABS: #Lymphocytes 0.5 thou/uL (1.20-3.40); #Monocytes 0.3 thou/uL (0.11-0.59); #Neutrophils 6.1 thou/uL (1.40-6.50); %Eosinophils 0.2 % (0.0-10.0); %Lymphocytes 7.2 % (21.0-51.0); %Monocytes 4.3 % (0.0-10.0); %Neutrophils 88.3 % (42.0-75.0); Hemoglobin 13.3 g/dL (14.0-18.0); Mean Corpuscular HGB CONC 30.5 g/dL (32.0-36.0); Mean Corpuscular Hemoglobin 30.7 pg (27.0-31.0); Mean Platelet Volume 8.5 fL (7.4-10.4); Platelet Count 110 thou/uL (130-400); RBC Distribution Width 15.2 % (11.5-14.5); Red Blood Cell (RBC) Count 4.34 mill/uL (4.70-6.10); White Blood Cell (WBC) Count 6.9 thou/uL (4.8-10.8)
[2018-02-14 05:48] LABS: BUN (Urea Nitrogen) 43 mg/dL (8.4-25.7); Calc. Creatinine Clearance 226 mL/min (70-130); Calcium 9.2 mg/dL (7.8-10.44); Estimated GFR-MDRD 70; Glucose 124 mg/dL (80-115); Magnesium 2.2 mg/dL (1.6-2.6)
[2018-02-14 05:49] LABS: Phosphorus 2.5 mg/dL (2.3-4.7)
[2018-02-14 05:59] LABS: Anion Gap 19 mmol/L (10-20); Carbon Dioxide 40 mmol/L (23-31); Chloride 87 mmol/L (98-107); Potassium 3.7 mmol/L (3.5-5.1); Sodium 142 mmol/L (136-145)
[2018-02-14] MEDS: Cefepime 1 GM in Sodium Chloride 0.9% 100 ML IVPB SCH ×2 (06:04→21:17)
[2018-02-14] MEDS: Aspirin 325 mg Enteric Coated Tablet PO SCH (09:04)
[2018-02-14] MEDS: Amlodipine 5 MG TAB PO SCH (09:04)
[2018-02-14] MEDS: Lisinopril 2.5 MG TAB PO SCH ×2 (09:04→21:18)
[2018-02-14] MEDS: predniSONE 20 MG TAB PO SCH (09:04)
[2018-02-14] MEDS: Famotidine 20 MG TAB PO SCH ×2 (09:05→21:17)
[2018-02-14] MEDS: acetaZOLAMIDE Sodium 500 MG in Sodium Chloride 0.9% 50 ML IVPB SCH (09:12)
--- NOTE | 2018-02-14 13:12 | PDOC.PN ---
- Subjective Encounter Start Date: 02/14/18 Encounter Start Time: 13:10 Subjective: awake and reports feelinh nauseous because he doesn't like hospital food -: wore bipap last night,refusing this morning -: educated about CPAP at home and says he will wear it now - Objective Resuscitation Status - Order Detail: 02/08/18 16:59 Resuscitation Status Routine Resuscitation Status: FULL: Full Resuscitation Discussed with: discussed with patient and family MAR Reviewed: Yes Vital Signs & Weight: Vital Signs (12 hours) Temp Pulse Resp BP BP Pulse Ox 02/14/18 11:52 97.4 F L 85 18 121/85 02/14/18 09:04 85 145/78 H 02/14/18 08:00 92 L 02/14/18 07:56 90 L 02/14/18 07:17 85 25 H 94 L 02/14/18 07:16 97.4 F L 83 15 144/78 H 93 L 02/14/18 03:57 97.8 F 81 14 124/67 93 L 02/14/18 02:12 83 15 90 L Weight Admit Weight 493 lb Weight 493 lb Most Recent Monitor Data Heart Rate from ECG 85 NIBP 110/71 NIBP BP-Mean 84 Respiration from ECG 18 SpO2 92 I&O: 02/13/18 02/14/18 02/15/18 06:59 06:59 06:59 Intake Total 455.1 1065 Output Total 3065 1545 Balance -2609.9 -480 Result Diagrams: 02/14/18 04:49 02/14/18 04:49 Additional Labs: Accuchecks 02/14/18 02/14/18 02/13/18 11:00 05:24 20:09 POC Glucose 123 H 118 H 134 H 02/13/18 18:13 POC Glucose 163 H Microbiology 02/08/18 16:01 Venous blood - Left Hand Blood Culture - Final NO GROWTH IN 5 DAYS 02/08/18 15:55 Venous blood - Left Hand Blood Culture - Final NO GROWTH IN 5 DAYS Laboratory Tests 02/08/18 02/08/18 02/09/18 13:54 13:54 04:53 Carbon Dioxide 44 H* 41 H* Creatinine 1.38 H 1.33 H B-Natriuretic Peptide 1331.5 H 02/10/18 02/10/18 02/11/18 04:43 04:43 04:47 Carbon Dioxide 42 H* 38 H Creatinine 1.30 1.25 B-Natriuretic Peptide 763.0 H 02/12/18 02/13/18 02/14/18 04:30 04:41 04:49 Carbon Dioxide 42 H* 46 H* 40 H Creatinine 1.19 1.09 1.07 B-Natriuretic Peptide Phys Exam - Physical Examination Constitutional: NAD HEENT: PERRLA, moist MMs, sclera anicteric, oral pharynx no lesions Neck: no nodes, no JVD, supple, full ROM Respiratory: no wheezing, no rales, no rhonchi, clear to auscultation bilateral Cardiovascular: RRR, no significant murmur, no rub Gastrointestinal: soft, non-tender, no distention, positive bowel sounds Musculoskeletal: no edema, pulses present Neurological: non-focal, normal sensation, moves all 4 limbs Psychiatric: normal affect, A&O x 3 Skin: no rash Dx/Plan (1) Acute on chronic respiratory failure with hypoxia and hypercapnia Code(s): J96.21 - ACUTE AND CHRONIC RESPIRATORY FAILURE WITH HYPOXIA; J96.22 - ACUTE AND CHRONIC RESPIRATORY FAILURE WITH HYPERCAPNIA Status: Acute Comment : Multifactorial.Due to Severe CHUCHO with resultant R sided Heart failure /cor pulmonale.Vent support (2) Acute CHF (congestive heart failure) Code(s): I50.9 - HEART FAILURE, UNSPECIFIED Status: Acute Qualifiers: Heart failure type: unspecified Qualified Code(s): I50.9 - Heart failure, unspecified Comment: on diuretics.Avoid vasodilators in the setting of R sided heart failure.EF preserved (3) Metabolic alkalosis Code(s): E87.3 - ALKALOSIS Status: Acute Comment: Due to lasix and compensatory from respiratry acidosis (4) Steroid-induced hyperglycemia Code(s): R73.9 - HYPERGLYCEMIA, UNSPECIFIED; T38.0X5A - ADVERSE EFFECT OF GLUCOCORT/SYNTH ANALOG, INIT Status: Acute Comment: Add ISS w Accuchecks (5) Elevated troponin Code(s): R74.8 - ABNORMAL LEVELS OF OTHER SERUM ENZYMES Status: Acute Comment: likley demand ischemia from Acute CHF (6) Chronic anticoagulation Code(s): Z79.01 - ALF (CURRENT) USE OF ANTICOAGULANTS Status: Chronic Comment: INR therapeutic (7) CHUCHO (obstructive sleep apnea) Code(s): G47.33 - OBSTRUCTIVE SLEEP APNEA (ADULT) (PEDIATRIC) Status: Chronic (8) Chronic cutaneous venous stasis ulcer Code(s): I83.009 - VARICOSE VEINS OF UNSP LOWER EXTREMITY W ULCER OF UNSP SITE Status: Chronic (9) Morbid obesity Code(s): E66.01 - MORBID (SEVERE) OBESITY DUE TO EXCESS CALORIES Status: Chronic (10) H/O deep venous thrombosis Code(s): Z86.718 - PERSONAL HISTORY OF OTHER VENOUS THROMBOSIS AND EMBOLISM Status: Chronic (11) CKD (chronic kidney disease) stage 3, GFR 30-59 ml/min Status: Chronic - Plan PT/OT, out of bed/ambulate, DVT proph w/SCDs Bip[place] w plans for trach d/t inability to come off of bipap -: rehab eval -: cont meds as below.on HARRIS-I.reduce ASA as EF adequate & mainly diastolic CH -: cont coumadin.monitor INR * . Review of Systems - Review of Systems Constitutional: weakness, malaise. negative: fever, chills, sweats, other Respiratory: Cough, Shortness of Breath, SOB with Excertion, Sputum. negative: Dry, Hemoptysis, Pleuritic Pain, Wheezing Cardiovascular: edema. negative: chest pain, palpitations, orthopnea, paroxysmal nocturnal dyspnea, light headedness, other Gastrointestinal: negative: Nausea, Vomiting, Abdominal Pain, Diarrhea, Constipation, Melena, Hematochezia, Other Genitourinary: negative: Dysuria, Frequency, Incontinence, Hematuria, Retention , Other Musculoskeletal: negative: Neck Pain, Shoulder Pain, Arm Pain, Back Pain, Hand Pain, Leg Pain, Foot Pain, Other Neurological: negative: Weakness, Numbness, Incoordination, Change in Speech, Confusion, Seizures, Other - Medications/Allergies Allergies/Adverse Reactions: Allergies Allergy/AdvReac Type Severity Reaction Status Date / Time No Known Drug Allergies Allergy Verified 02/08/18 21:03 Medications: Current Medications Acetaminophen (Tylenol) 650 mg PO Q4H PRN PRN Reason: Headache/Fever/Mild Pain (1-3) Albuterol/Ipratropium (Duoneb) 3 ml NEB [id number] PRN PRN Reason: SOB &/or Wheezing Albuterol/Ipratropium (Duoneb) 3 ml NEB [id number] [facility] Last Admin: 02/14/18 07:17 Dose: 3 ml Amlodipine Besylate (Norvasc) 5 mg PO DAILY [facility] Last Admin: 02/14/18 09:04 Dose: 5 mg Aspirin (Ecotrin) 325 mg PO DAILY [facility] Last Admin: 02/14/18 09:04 Dose: 325 mg Bisacodyl (Dulcolax) 10 mg PO DAILYPRN PRN PRN Reason: Constipation Bisacodyl (Dulcolax) 10 mg PA DAILYPRN PRN PRN Reason: Constipation Calcium Carbonate (Tums) 1,000 mg PO Q4H PRN PRN Reason: Heartburn or Indigestion Clonidine (Catapres) 0.1 mg PO Q4H PRN PRN Reason: SBP > 160____ Last Admin: 02/11/18 12:31 Dose: 0.1 mg Dextrose/Water (Dextrose 50%) 25 gm SLOW IVP PRN PRN PRN Reason: Hypoglycemia Famotidine (Pepcid) 20 mg PO BID [facility] Last Admin: 02/14/18 09:05 Dose: 20 mg Glucagon (Glucagon) 1 mg IM PRN PRN PRN Reason: Hypoglycemia Guaifenesin (Robitussin Sf) 200 mg PO Q4H PRN PRN Reason: Cough Hydralazine HCl (Apresoline) 10 mg SLOW IVP Q4H PRN PRN Reason: SBP > 180 and HR < 70 Last Admin: 02/11/18 12:30 Dose: 10 mg Cefepime HCl 1 gm/ Sodium (Chloride) 100 mls @ 200 mls/hr IVPB 0630,1830 [facility] Last Admin: 02/14/18 06:04 Dose: 100 mls Dextrose/Water (D5w) 1,000 mls @ 0 mls/hr IV .Q0M PRN PRN Reason: Hypoglycemia Acetazolamide Sodium 500 mg/ (Sodium Chloride) 50 mls @ 100 mls/hr IVPB DAILY [facility] Stop: 02/16/18 09:01 Last Admin: 02/14/18 09:12 Dose: 50 mls Insulin Human Lispro (Humalog) 0 units SC .MILD SLIDING SCALE PRN PRN Reason: Mild Correctional Scale Insulin Human Lispro (Humalog) 0 units SC .BEDTIME SLIDING SC PRN PRN Reason: Bedtime Correctional Scale Lisinopril (Zestril) 2.5 mg PO BID [facility] Last Admin: 02/14/18 09:04 Dose: 2.5 mg Miscellaneous Medication (Pharmacy To Dose) 1 each PO PRN PRN PRN Reason: Pharmacy to dose Ondansetron HCl (Zofran) 4 mg IVP Q6H PRN PRN Reason: Nausea/Vomiting Last Admin: 02/11/18 09:25 Dose: 4 mg Prednisone (Prednisone) 40 mg PO QAM[facility] Last Admin: 02/14/18 09:04 Dose: 40 mg Senna/Docusate Sodium (Senokot S) 2 tab PO BID PRN PRN Reason: Constipation Sodium Chloride ([place] Nasal [place] 0.65%) 0 ml EA NARE QIDPRN PRN PRN Reason: Nasal Congestion Sodium Chloride (Flush - Normal Saline) 10 ml IVF Q12HR [facility] Last Admin: 02/14/18 09:05 Dose: 10 ml Sodium Chloride (Flush - Normal Saline) 10 ml IVF PRN PRN PRN Reason: Saline Flush Warfarin Sodium (Coumadin) 5 mg PO 1700 [facility]
--- NOTE | 2018-02-14 17:20 | EKG ---
Test Reason : ER INDICATION Blood Pressure : / mmHG Vent. Rate : 076 BPM Atrial Rate : 076 BPM P-R Int : 212 ms QRS Dur : 156 ms QT Int : 424 ms P-R-T Axes : 060 108 007 degrees QTc Int : 477 ms Poor data quality, interpretation may be adversely affected Sinus rhythm with 1st degree A-V block Right bundle branch block Confirmed by LEILANI VALLE ([id number]), editor & co founder PETE CHI ([id number]) on 02/14/2018 5:20:19 PM Referred By: TETO Confirmed By:LEILANI VALLE
--- NOTE | 2018-02-14 18:20 | PRG ---
DATE OF SERVICE: 02/14/2018 SERVICE: Pulmonary Medicine. INTERVAL HISTORY: The patient is doing fine from respiratory standpoint. He refused BiPAP last night. Today, got a little bit increasingly sleepy and goofy. As such, he got put back on the CPAP. He did not fight at this time around. At this point, he is breathing comfortably. He is wide awake, he is not terribly somnolent. He denies any current fevers, chills, nausea, or vomiting. PHYSICAL EXAMINATION: VITAL SIGNS: Afebrile, pulse 85, blood pressure 100/53, respirations 12, saturation 94% on 4 L nasal cannula. GENERAL: The patient is awake and alert, in no apparent distress. LUNGS: I cannot hear any lung sounds. There are no adventitious sounds, but once again, I cannot hear any lung sounds. HEENT: Normocephalic and atraumatic. ABDOMEN: Soft. Nontender and nondistended. I cannot hear any bowel sounds. MUSCULOSKELETAL: No cyanosis or clubbing. There is trace pitting edema of the bilateral lower extremities. He has 1 to 2+ pitting of the sacral region. : Slaughter catheter in place. LABORATORY DATA: Creatinine 1.07 and stable, bicarb 40 and downtrending, chloride 87, sodium 142. Basic metabolic profile is otherwise unremarkable. Magnesium and phosphorous fall within the normal limits. Respiratory virus panel and blood cultures x2 are unremarkable. ASSESSMENT: 1. Morbid obesity. 2. Acute on chronic hypoxic and hypercapnic respiratory failure, resolved to baseline. 3. Cor pulmonale secondary to hypoxic respiratory failure and sleep apnea. 4. Obstructive sleep apnea, horrendous. 5. Obesity hypoventilation syndrome. 6. Community-acquired pneumonia, status post full course of therapy. DISCUSSION AND PLAN: I will continue to diurese the patient down to euvolemia. I will give the patient a laboratory holiday tomorrow morning. Pulmonary Critical Care will continue to follow along in this location, but he is getting RR. Job ID: [id number]
[2018-02-14] MEDS: Warfarin Sodium 5 MG TAB PO SCH (21:17)
--- NOTE | 2018-02-14 22:57 | PDOC.GSPN ---
Surgery Progress Note: Subj - Subjective Narrative: Patient was seen yesterday for possible tracheostomy, but the patient refused surgery at that time, stating that he wanted to try using CPAP instead. Please contact us if he decides to proceed with tracheostomy. Surgery Progress Note: Obj - Vital signs Vital signs: Vital Signs - Most Recent Temp Pulse Resp BP Pulse Ox 97.0 F L 81 21 H 109/62 91 L 02/14/18 19:48 02/14/18 21:18 02/14/18 19:48 02/14/18 19:48 02/14/18 19:48 Surgery Progress Note: Results - Labs Result Diagrams: 02/14/18 04:49 02/14/18 04:49 Lab results: Laboratory Results - last 24 hr 02/14/18 02/14/18 11:00 17:17 POC Glucose 123 H 139 H
[2018-02-15 04:57] LABS: INR-International Normal Ratio 2.8; Prothrombin Time 29.6 SEC (12.0-14.7)
[2018-02-15] MEDS: Cefepime 1 GM in Sodium Chloride 0.9% 100 ML IVPB SCH (06:17)
[2018-02-15] MEDS: acetaZOLAMIDE Sodium 500 MG in Sodium Chloride 0.9% 50 ML IVPB SCH (09:23)
[2018-02-15] MEDS: Aspirin 81 mg Enteric Coated Tablet PO SCH (09:24)
[2018-02-15] MEDS: Lisinopril 2.5 MG TAB PO SCH ×2 (09:24→21:49)
[2018-02-15] MEDS: predniSONE 20 MG TAB PO SCH (09:24)
[2018-02-15] MEDS: Famotidine 20 MG TAB PO SCH ×2 (09:24→21:49)
[2018-02-15] MEDS: Amlodipine 5 MG TAB PO SCH (09:24)
--- NOTE | 2018-02-15 15:41 | PRG ---
DATE OF SERVICE: 02/15/2018 SERVICE: Pulmonary Medicine. INTERVAL HISTORY: The patient is breathing fine from respiratory standpoint. He is awake and alert. He is breathing comfortably. He has a poor appetite right now. Otherwise, there has been no interval change to his condition. PHYSICAL EXAMINATION: VITAL SIGNS: Afebrile, pulse 79, blood pressure 122/70, and saturations 97% on 4 L nasal cannula. GENERAL: The patient is awake and alert, in no apparent distress. LUNGS: Excellent air entry. There is no prolonged expiratory phase or wheezing present. HEART: Normal rate, regular. ABDOMEN: Soft, nontender, and nondistended. Bowel sounds positive. MUSCULOSKELETAL: No cyanosis or clubbing. There is trace 1+ pitting in bilateral lower extremities with chronic stasis change. ASSESSMENT: 1. [id number] hypoxic and hypercapnic respiratory failure. 2. Morbid obesity. 3. Obesity hypoventilation syndrome. 4. Obstructive sleep apnea, severe. 5. Cor pulmonale secondary to hypoxic failure and sleep apnea. 6. Community-acquired pneumonia, status post full course of therapy. DISCUSSION AND PLAN: The patient will continue noninvasive ventilation. From my perspective, he has essentially returned to his baseline respiratory status. That being said, he remains quite debilitated and deconditioned from this hospital stay. We will continue working on mobilization efforts. He may need to go to a prison facility in order to get strong enough to transition home. He did refuse tracheostomy. I have asked with the to bring up his CPAP unit, so that we can make certain it is adjusted to appropriate settings and is the correct unit. Job ID: [id number]
--- NOTE | 2018-02-15 16:42 | PDOC.PN ---
- Subjective Encounter Start Date: 02/15/18 Encounter Start Time: 16:35 Subjective: f/u for life-threatening obesity and hypoventilation syndrome with -: severe CHUCHO and need for CPAP NIMV. - Objective Resuscitation Status - Order Detail: 02/08/18 16:59 Resuscitation Status Routine Resuscitation Status: FULL: Full Resuscitation Discussed with: discussed with patient and family MAR Reviewed: Yes Vital Signs & Weight: Vital Signs (12 hours) Temp Pulse Resp BP BP Pulse Ox 02/15/18 16:00 97.0 F L 85 20 103/56 L 91 L 02/15/18 15:16 95 02/15/18 15:15 82 16 02/15/18 11:38 98.4 F 79 122/70 97 02/15/18 09:24 75 119/66 02/15/18 08:19 77 14 92 L 02/15/18 08:00 91 L 02/15/18 07:30 96.3 F L 83 19 108/67 91 L Weight Admit Weight 493 lb Weight 493 lb Most Recent Monitor Data Heart Rate from ECG 85 NIBP 110/71 NIBP BP-Mean 84 Respiration from ECG 18 SpO2 92 I&O: 02/14/18 02/15/18 02/16/18 06:59 06:59 06:59 Intake Total 1065 1050 Output Total 1545 2100 Balance -480 -1050 Result Diagrams: 02/14/18 04:49 02/14/18 04:49 Additional Labs: Accuchecks 02/14/18 17:17 POC Glucose 139 H Microbiology 02/08/18 22:04 Nasopharyngeal swab Respiratory Virus Panel (PCR) - Final 02/08/18 16:01 Venous blood - Left Hand Blood Culture - Final NO GROWTH IN 5 DAYS 02/08/18 15:55 Venous blood - Left Hand Blood Culture - Final NO GROWTH IN 5 DAYS Laboratory Tests 02/11/18 02/12/18 02/12/18 04:47 04:30 04:30 INR 2.0 Creatinine 1.25 1.19 Phosphorus Magnesium 02/13/18 02/13/18 02/14/18 04:41 04:41 04:49 INR 2.2 2.6 Creatinine 1.09 Phosphorus Magnesium 02/14/18 02/14/18 02/15/18 04:49 04:49 04:17 INR 2.8 Creatinine Phosphorus 2.5 Magnesium 2.2 EKG Reviewed by me: Yes (Tele - SR) Phys Exam - Physical Examination Constitutional: NAD HEENT: PERRLA, sclera anicteric, oral pharynx no lesions Neck: no nodes, no JVD, supple, full ROM diminished in bases Respiratory: no wheezing S1, S2 Cardiovascular: RRR, no significant murmur, no rub, gallop obese Gastrointestinal: soft, no distention, positive bowel sounds Musculoskeletal: pulses present, edema present Neurological: normal sensation, moves all 4 limbs Psychiatric: A&O x 3 Skin: normal turgor, cap refill <2 seconds Dx/Plan (1) Acute on chronic respiratory failure with hypoxia and hypercapnia Code(s): J96.21 - ACUTE AND CHRONIC RESPIRATORY FAILURE WITH HYPOXIA; J96.22 - ACUTE AND CHRONIC RESPIRATORY FAILURE WITH HYPERCAPNIA Status: Acute Comment : Multifactorial.Due to Severe CHUCHO with resultant R sided Heart failure /cor pulmonale. NIMV with nocturnal BiPAP/CPAP (2) Cor pulmonale, chronic Code(s): I27.81 - COR PULMONALE (CHRONIC) Status: Chronic (3) CHUCHO (obstructive sleep apnea) Code(s): G47.33 - OBSTRUCTIVE SLEEP APNEA (ADULT) (PEDIATRIC) Status: Chronic Comment: Severe, life-threatening (4) Venous stasis dermatitis of both lower extremities Code(s): I83.11 - VARICOSE VEINS OF RIGHT LOWER EXTREMITY WITH INFLAMMATION; I83.12 - VARICOSE VEINS OF LEFT LOWER EXTREMITY WITH INFLAMMATION Status: Chronic Comment: volume mgmt, Diamox (5) Morbid obesity Code(s): E66.01 - MORBID (SEVERE) OBESITY DUE TO EXCESS CALORIES Status: Chronic Comment: Weight loss program - Plan PT/OT, respiratory therapy Stable overall -: Continue BiPAP NIMV -: CM for SNF options -: OOB with PT -: Weight loss program with dietitian * AM lab: BMP
[2018-02-15] MEDS: Warfarin Sodium 5 MG TAB PO SCH (19:03)
[2018-02-15] MEDS ORDERED: Nystatin Powder 15 GM BOT TOP PRN (19:44)
[2018-02-16] MEDS: Ondansetron PF 4 MG/2 ML Vial IVP PRN (04:31)
[2018-02-16 04:58] LABS: INR-International Normal Ratio 2.6; Prothrombin Time 28.2 SEC (12.0-14.7)
[2018-02-16 05:22] LABS: Anion Gap 16 mmol/L (10-20); Carbon Dioxide 39 mmol/L (23-31); Chloride 91 mmol/L (98-107); Potassium 3.5 mmol/L (3.5-5.1); Sodium 142 mmol/L (136-145)
[2018-02-16 05:28] LABS: Phosphorus 1.8 mg/dL (2.3-4.7)
[2018-02-16 05:29] LABS: BUN (Urea Nitrogen) 42 mg/dL (8.4-25.7); Calc. Creatinine Clearance 250 mL/min (70-130); Calcium 9.3 mg/dL (7.8-10.44); Estimated GFR-MDRD 78; Glucose 136 mg/dL (80-115); Magnesium 2.2 mg/dL (1.6-2.6)
[2018-02-16] MEDS ORDERED: Potassium Phosphate 30 MMOL in Sodium Chloride 0.9% 500 ML IVPB SCH (06:30)
[2018-02-16] MEDS: Aspirin 81 mg Enteric Coated Tablet PO SCH (09:53)
[2018-02-16] MEDS: Lisinopril 2.5 MG TAB PO SCH ×2 (09:53→20:50)
[2018-02-16] MEDS: Amlodipine 5 MG TAB PO SCH (09:53)
[2018-02-16] MEDS: Famotidine 20 MG TAB PO SCH ×2 (09:54→20:50)
[2018-02-16] MEDS: acetaZOLAMIDE Sodium 500 MG in Sodium Chloride 0.9% 50 ML IVPB SCH (10:18)
--- NOTE | 2018-02-16 15:40 | PDOC.PN ---
- Subjective Encounter Start Date: 02/16/18 Encounter Start Time: 15:35 Subjective: f/u for resp failure on nocturnal BiPAP with life-threatening obesity -: and refusing tracheostomy. - Objective Resuscitation Status - Order Detail: 02/08/18 16:59 Resuscitation Status Routine Resuscitation Status: FULL: Full Resuscitation Discussed with: discussed with patient and family MAR Reviewed: Yes Vital Signs & Weight: Vital Signs (12 hours) Temp Pulse Pulse Pulse Pulse Resp BP 02/16/18 15:23 98.1 F 79 22 H 02/16/18 13:37 88 86 83 02/16/18 13:15 69 18 02/16/18 10:53 97.4 F L 88 20 02/16/18 09:53 83 131/75 02/16/18 08:00 02/16/18 07:51 02/16/18 07:48 80 15 02/16/18 07:29 98.2 F 80 19 02/16/18 03:57 97.6 F 84 20 BP BP BP BP Pulse Ox Pulse Ox Pulse Ox 02/16/18 15:23 132/90 99 02/16/18 13:37 121/74 131/85 132/90 93 L 93 L 02/16/18 13:15 02/16/18 10:53 103/65 90 L 02/16/18 09:53 02/16/18 08:00 99 02/16/18 07:51 98 02/16/18 07:48 98 02/16/18 07:29 131/73 99 02/16/18 03:57 150/66 H 92 L Pulse Ox 02/16/18 15:23 02/16/18 13:37 92 L 02/16/18 13:15 02/16/18 10:53 02/16/18 09:53 02/16/18 08:00 02/16/18 07:51 02/16/18 07:48 02/16/18 07:29 02/16/18 03:57 Weight Admit Weight 493 lb Weight 493 lb Most Recent Monitor Data Heart Rate from ECG 85 NIBP 110/71 NIBP BP-Mean 84 Respiration from ECG 18 SpO2 92 I&O: 02/15/18 02/16/18 02/17/18 06:59 06:59 06:59 Intake Total 1050 1460 Output Total 2100 1775 Balance -1050 -315 Result Diagrams: 02/14/18 04:49 02/16/18 04:27 Additional Labs: Microbiology 02/08/18 22:04 Nasopharyngeal swab Respiratory Virus Panel (PCR) - Final 02/08/18 16:01 Venous blood - Left Hand Blood Culture - Final NO GROWTH IN 5 DAYS 02/08/18 15:55 Venous blood - Left Hand Blood Culture - Final NO GROWTH IN 5 DAYS Laboratory Tests 02/11/18 02/12/18 02/12/18 04:47 04:30 04:30 INR 2.0 Creatinine 1.25 1.19 Phosphorus Magnesium 02/13/18 02/13/18 02/14/18 04:41 04:41 04:49 INR 2.2 2.6 Creatinine 1.09 Phosphorus Magnesium 02/14/18 02/14/18 02/15/18 04:49 04:49 04:17 INR 2.8 Creatinine Phosphorus 2.5 Magnesium 2.2 EKG Reviewed by me: Yes (Tele - SR) Phys Exam - Physical Examination Constitutional: NAD opens eyes and states a few word responses HEENT: PERRLA, sclera anicteric, oral pharynx no lesions Neck: no nodes, no JVD, supple, full ROM diminished in bases bilat Respiratory: no wheezing S1, S2 Cardiovascular: RRR, no significant murmur, no rub, gallop obese Gastrointestinal: soft, non-tender, no distention, positive bowel sounds chronic venous stasis changes bilat LE's Musculoskeletal: pulses present, edema present Neurological: normal sensation, moves all 4 limbs Skin: normal turgor, cap refill <2 seconds Dx/Plan (1) Acute on chronic respiratory failure with hypoxia and hypercapnia Code(s): J96.21 - ACUTE AND CHRONIC RESPIRATORY FAILURE WITH HYPOXIA; J96.22 - ACUTE AND CHRONIC RESPIRATORY FAILURE WITH HYPERCAPNIA Status: Acute Comment : Multifactorial.Due to Severe CHUCHO with resultant R sided Heart failure /cor pulmonale. NIMV with nocturnal BiPAP/CPAP (2) Cor pulmonale, chronic Code(s): I27.81 - COR PULMONALE (CHRONIC) Status: Chronic (3) CHUCHO (obstructive sleep apnea) Code(s): G47.33 - OBSTRUCTIVE SLEEP APNEA (ADULT) (PEDIATRIC) Status: Chronic Comment: Severe, life-threatening, outpt sleep study after d/c (4) Venous stasis dermatitis of both lower extremities Code(s): I83.11 - VARICOSE VEINS OF RIGHT LOWER EXTREMITY WITH INFLAMMATION; I83.12 - VARICOSE VEINS OF LEFT LOWER EXTREMITY WITH INFLAMMATION Status: Chronic Comment: volume mgmt, Diamox d/c'd (5) Morbid obesity Code(s): E66.01 - MORBID (SEVERE) OBESITY DUE TO EXCESS CALORIES Status: Chronic Comment: Weight loss program (6) Chronic anticoagulation Code(s): Z79.01 - SKILLED NURSING (CURRENT) USE OF ANTICOAGULANTS Status: Chronic Comment: INR therapeutic currently, continue Coumadin 5mg daily - Plan PT/OT, addiction social worker, respiratory therapy Stable currently -: BiPAP for sleep/nocturnally -: CM for SNF/NH options -: Outpt sleep study -: Continue Coumadin 5mg daily * AM lab: PT/INR
--- NOTE | 2018-02-16 15:42 | PRG ---
DATE OF SERVICE: 02/16/2018 SUBJECTIVE: This patient is arousable, but does not talk very much. OBJECTIVE: VITAL SIGNS: Temperature is 97.4, pulse 69, respirations 18, and O2 saturation is 92% on nasal cannula. HEENT: Unremarkable. NECK: No JVD. LUNGS: Poor air movement. ABDOMEN: Morbidly obese. CARDIAC: S1 and S2. Regular. EXTREMITIES: 4+ brawny edema. LABORATORY DATA: Sodium 142, potassium 3.5, chloride 91, CO2 of 39, BUN 42, creatinine 0.9, and glucose 136. ASSESSMENT: 1. Likely obesity hypoventilation syndrome. 2. Acute on chronic hypoxic and hypercapnic respiratory failure. 3. Cor pulmonale. 4. Pneumonia. PLAN: This is a very difficult situation. I think he probably needs a tracheostomy, but he is refusing. He is continuing BiPAP at night. He will likely need to be in a retirement long-term as he will be very difficult to take care of. Job ID: [id number]
[2018-02-16] MEDS: Warfarin Sodium 5 MG TAB PO SCH (18:10)
[2018-02-17 08:36] LABS: INR-International Normal Ratio 2.3; Prothrombin Time 25.5 SEC (12.0-14.7)
[2018-02-17] MEDS: Lisinopril 2.5 MG TAB PO SCH ×2 (08:42→21:17)
[2018-02-17] MEDS: Amlodipine 5 MG TAB PO SCH (08:42)
[2018-02-17] MEDS: Famotidine 20 MG TAB PO SCH ×2 (08:42→21:17)
[2018-02-17] MEDS: Aspirin 81 mg Enteric Coated Tablet PO SCH (08:42)
--- NOTE | 2018-02-17 11:27 | PRG ---
DATE OF SERVICE: SUBJECTIVE: A morbidly obese gentleman doing well. OBJECTIVE: VITAL SIGNS: Sats are 93 on 3 L, respiratory rate 18, temperature 98, pulse 78, and blood pressure 145/72. CHEST: No wheezing. CARDIAC: Normal S1, S2. No gallops. ABDOMEN: No masses. IMPRESSION: Morbid obesity, sleep apnea, hypoventilation syndrome, cor pulmonale, possibly pneumonia. PLAN: Continue supportive care with PT. No sedation. Disposition, placement discussed with family. Job ID: [id number]
--- NOTE | 2018-02-17 15:03 | PDOC.PN ---
- Subjective Encounter Start Date: 02/17/18 Encounter Start Time: 15:00 Subjective: f/u for resp failure on nocturnal BiPAP and life threatening obesity. -: No new issues noted. - Objective Resuscitation Status - Order Detail: 02/08/18 16:59 Resuscitation Status Routine Resuscitation Status: FULL: Full Resuscitation Discussed with: discussed with patient and family MAR Reviewed: Yes Vital Signs & Weight: Vital Signs (12 hours) Temp Pulse Resp BP Pulse Ox 02/17/18 13:05 81 18 98 02/17/18 11:01 98.4 F 78 18 145/72 H 93 L 02/17/18 08:42 75 92 L 02/17/18 07:43 75 19 93 L 02/17/18 07:42 72 18 93 L 02/17/18 07:29 97.0 F L 71 18 121/67 92 L 02/17/18 04:00 98.6 F 76 22 H 92/52 L 91 L Weight Admit Weight 493 lb Weight 493 lb Most Recent Monitor Data Heart Rate from ECG 85 NIBP 110/71 NIBP BP-Mean 84 Respiration from ECG 18 SpO2 92 I&O: 02/16/18 02/17/18 02/18/18 06:59 06:59 06:59 Intake Total 1460 1070 Output Total 1775 1100 Balance -315 -30 Result Diagrams: 02/14/18 04:49 02/16/18 04:27 Additional Labs: Microbiology 02/08/18 22:04 Nasopharyngeal swab Respiratory Virus Panel (PCR) - Final 02/08/18 16:01 Venous blood - Left Hand Blood Culture - Final NO GROWTH IN 5 DAYS 02/08/18 15:55 Venous blood - Left Hand Blood Culture - Final NO GROWTH IN 5 DAYS Laboratory Tests 02/11/18 02/12/18 02/12/18 04:47 04:30 04:30 INR 2.0 Creatinine 1.25 1.19 Phosphorus Magnesium 02/13/18 02/13/18 02/14/18 04:41 04:41 04:49 INR 2.2 2.6 Creatinine 1.09 Phosphorus Magnesium 02/14/18 02/14/18 02/15/18 04:49 04:49 04:17 INR 2.8 Creatinine Phosphorus 2.5 Magnesium 2.2 EKG Reviewed by me: Yes (Tele - SR) Phys Exam - Physical Examination Constitutional: NAD HEENT: PERRLA, sclera anicteric, oral pharynx no lesions Neck: no nodes, no JVD, supple, full ROM diminished in bases Respiratory: clear to auscultation bilateral S1, S2 Cardiovascular: RRR, no significant murmur, no rub, gallop Gastrointestinal: soft, non-tender, no distention, positive bowel sounds Musculoskeletal: pulses present, edema present Neurological: moves all 4 limbs Psychiatric: A&O x 3 Skin: normal turgor, cap refill <2 seconds Dx/Plan (1) Acute on chronic respiratory failure with hypoxia and hypercapnia Code(s): J96.21 - ACUTE AND CHRONIC RESPIRATORY FAILURE WITH HYPOXIA; J96.22 - ACUTE AND CHRONIC RESPIRATORY FAILURE WITH HYPERCAPNIA Status: Acute Comment : Multifactorial.Due to Severe CHUCHO with resultant R sided Heart failure /cor pulmonale. NIMV with nocturnal BiPAP/CPAP (2) Cor pulmonale, chronic Code(s): I27.81 - COR PULMONALE (CHRONIC) Status: Chronic (3) CHUCHO (obstructive sleep apnea) Code(s): G47.33 - OBSTRUCTIVE SLEEP APNEA (ADULT) (PEDIATRIC) Status: Chronic Comment: Severe, life-threatening, outpt sleep study after d/c (4) Venous stasis dermatitis of both lower extremities Code(s): I83.11 - VARICOSE VEINS OF RIGHT LOWER EXTREMITY WITH INFLAMMATION; I83.12 - VARICOSE VEINS OF LEFT LOWER EXTREMITY WITH INFLAMMATION Status: Chronic Comment: volume mgmt, Diamox d/c'd (5) Morbid obesity Code(s): E66.01 - MORBID (SEVERE) OBESITY DUE TO EXCESS CALORIES Status: Chronic Comment: Weight loss program (6) Chronic anticoagulation Code(s): Z79.01 - [employer]S ENGINEER (CURRENT) USE OF ANTICOAGULANTS Status: Chronic Comment: INR therapeutic currently, continue Coumadin 5mg daily, serial stool guaiac - Plan Stable currently -: CM assisting with NH/SNF options -: Nocturnal BiPAP -: Outpt sleep study -: AM lab: PT/INR, H/H * .
[2018-02-17] MEDS: Warfarin Sodium 5 MG TAB PO SCH (17:15)
[2018-02-18 05:26] LABS: INR-International Normal Ratio 1.9; Prothrombin Time 21.5 SEC (12.0-14.7)
[2018-02-18] MEDS: Amlodipine 5 MG TAB PO SCH (08:47)
[2018-02-18] MEDS: Lisinopril 2.5 MG TAB PO SCH (08:47)
[2018-02-18] MEDS: Aspirin 81 mg Enteric Coated Tablet PO SCH (08:47)
[2018-02-18] MEDS: Famotidine 20 MG TAB PO SCH (08:48)
--- NOTE | 2018-02-18 09:00 | PRG ---
DATE OF SERVICE: 02/18/2018 SUBJECTIVE: This morning, he is lying in bed. Denies any difficulty breathing temperature 98, blood pressure 145/65. CHEST: Decreased breath sounds. No wheezing. CARDIAC: Normal S1 and S2 IMPRESSION: 1. Morbid obesity. 2. Sleep apnea. PLAN: Continue Coumadin. Continue PT supportive care, eventually placement. Job ID: [id number]
--- NOTE | 2018-02-18 12:37 | DIS ---
DATE OF ADMISSION: 02/08/2018 DATE OF DISCHARGE: 02/18/2018 DISCHARGE DIAGNOSES: 1. Acute on chronic hypoxic hypercapnic respiratory failure. 2. Cor pulmonale, chronic. 3. Severe obstructive sleep apnea with nocturnal BiPAP noninvasive mechanical ventilation. 4. Obesity hypoventilation syndrome. 5. Venous stasis dermatitis of bilateral lower extremities, chronic. 6. Deep vein thrombosis/pulmonary embolus, on chronic anticoagulation with Coumadin. CONSULTATIONS: 1. Dr. Clemens and Dr. Garvey with Pulmonology Service. 2. Dr. Nicholson with General Surgery Service. PERTINENT LABORATORY AND X-RAY FINDINGS: Carbon dioxide level ranged between 38 to 46, creatinine ranged between 0.97 to 1.38. Estimated GFR ranged between 52 to 78. Lactic acid level 0.7. BNP ranged between 763 to 1332. Troponin I ranged between 0.156 to 0.197. TSH 2.38. CBC showed a white blood cell count ranged between 4.1 to 8.5. PT 21.5, INR 1.9 on 02/18/2018. Blood cultures x2 dated 02/08/2018 showed no growth at 5 days. Respiratory virus panel by PCR dated 02/08/2018, negative. Portable chest x-ray dated 02/08/2018, showed pulmonary vascular prominence with right pleural effusion. 2D transthoracic echocardiogram dated 02/09/2018, showed ejection fraction of 65% to 70%. Severe right ventricular enlargement. Dilation of the inferior vena cava. Normal left atrial size. HOSPITAL COURSE: The patient was initially admitted after presenting with hypoxemia in addition to shortness of breath. The patient with longstanding history of life-threatening morbid obesity in addition to history of deep venous thrombosis and pulmonary embolus on chronic anticoagulation with Coumadin. The patient was initially noted with O2 saturations in the 70% range and treated with non-rebreather as well as continuous DuoNeb. The patient was noted with hypercapnic respiratory failure and started on BiPAP noninvasive mechanical ventilation. The patient was evaluated by the Pulmonology/Critical Care Service in the intermediate care unit with recommendations for aggressive pulmonary supportive management including IV steroids and aggressive bronchodilator therapy. The patient was also initially noted with elevated troponin I in the context of cor pulmonale due to severe obstructive sleep apnea. No specific intervention was recommended and the patient was medically managed. The patient was continued on chronic Coumadin therapy due to history of deep venous thrombosis and pulmonary embolus with therapeutic INR throughout the hospital course. Due to the patient's life-threatening morbid obesity and severe obstructive sleep apnea, the patient was evaluated for potential tracheostomy with General Surgery evaluating the patient. The patient declined to pursue tracheostomy placement at this time, wishing to continue nocturnal BiPAP noninvasive mechanical ventilation. The patient received general supportive management through the remainder of the hospital course and was evaluated for ongoing skilled care in an acute inpatient rehabilitation setting. Due to the patient's multiple comorbid status, deconditioning, life-threatening obesity, and pulmonary needs, the patient was deemed appropriate for inpatient rehabilitation. I have examined the patient at the time of discharge and discussed followup instructions and disposition plans. The patient verbalizes understanding and agreement and ready to transfer to inpatient rehabilitation on 02/18/2018. DISCHARGE MEDICATIONS: 1. Coumadin 6 mg p.o. daily with goal INR of 2 to 3. 2. Amlodipine 5 mg p.o. daily. 3. Enteric-coated aspirin 81 mg p.o. daily. 4. Pepcid 20 mg p.o. b.i.d. 5. DuoNeb 3 mL nebulized q.2 to 6 hours p.r.n. 6. Lisinopril 2.5 mg p.o. b.i.d. 7. Mycostatin one application topically b.i.d. p.r.n. FOLLOWUP: The patient to follow up with his primary care provider, Dr. Dar Dennis after discharge from an inpatient rehabilitation. CONDITION ON DISCHARGE: Guarded. ACTIVITY: Ad-filippo. Maximal assistance with transfers, hygiene, and general care. SPECIAL INSTRUCTIONS: Check PT/INR on 02/20/2017, with a goal INR of 2 to 3. BiPAP noninvasive mechanical ventilation with settings of 17/9 with a rate of 4 to maintain O2 saturations at 90% or greater. DIET: ADA. CODE STATUS: Full. DISPOSITION: Discharged to [facility] on 02/18/2018. TIME SPENT: Time preparing and coordinating discharge, 37 minutes. Job ID: [id number]
[2018-02-18 12:54] VITALS: TEMP 98.7
[2018-02-18] MEDS ORDERED: Warfarin Sodium 2 MG TAB PO SCH (17:00)
[2018-02-18 18:21] VITALS: BP 141/75
== END 2018-02-18 19:20 | DRG 208 ==
LOC: ERS 13:30 → CCU 16:19 → IMCU/EMU 02-13 19:34
PROVIDERS: ADMIT Internal Medicine; ATTEND Internal Medicine
PROC: 0BH17EZ Insertion of Endotracheal Airway into Trachea, Via Natural or Artificial Opening (ICD-10-PCS; principal; 2018-02-08)
PROC: 5A1945Z Respiratory Ventilation, 24-96 Consecutive Hours (ICD-10-PCS; 2018-02-08)
DX: J96.21 Acute and chronic respiratory failure with hypoxia (principal); I50.33 Acute on chronic diastolic (congestive) heart failure; J18.9 Pneumonia, unspecified organism; I13.0 Hypertensive heart and chronic kidney disease with heart failure and stage 1 through stage 4 chronic kidney disease, or unspecified chronic kidney disease; Z68.44 Body mass index [BMI] 60.0-69.9, adult; I24.8 Other forms of acute ischemic heart disease; E66.2 Morbid (severe) obesity with alveolar hypoventilation; J96.22 Acute and chronic respiratory failure with hypercapnia; I87.8 Other specified disorders of veins; Z74.01 Bed confinement status; L89.322 Pressure ulcer of left buttock, stage 2; L89.312 Pressure ulcer of right buttock, stage 2; R73.9 Hyperglycemia, unspecified; T38.0X5A Adverse effect of glucocorticoids and synthetic analogues, initial encounter; N18.3 Chronic kidney disease, stage 3 (moderate); I27.81 Cor pulmonale (chronic); Z79.01 Long term (current) use of anticoagulants; Z86.718 Personal history of other venous thrombosis and embolism; Z86.711 Personal history of pulmonary embolism; Z80.9 Family history of malignant neoplasm, unspecified; Z82.49 Family history of ischemic heart disease and other diseases of the circulatory system
CPT/HCPCS: 31500; 36415; 36416; 51702; 71045; 80048; 80053; 82330; 82553; 82803; 82805; 83605; 83735; 83880; 84100; 84443; 84484; 85025; 85379; 85610; 85730; 87040; 87633; 93005; 93306; 93798; 94002; 94003; 94640; 94644; 94660; 94760; 96365; 96366; 96367; 96368; 96375; 96376; A4218; G8978-GP-CN; G8979-GP-CK; G8987-GO-CN; G8988-GO-CK; J0360; J0692; J0696; J1120; J1940; J2250; J2405; J2704; J2920; J2930; J3010; J3370; J7050; J7506; J7611; J7620

== ENCOUNTER 2018-02-27 10:55 | Inpatient (IN) | payer MEDICARE ==
[2018-02-27] MEDS ORDERED: Mag-Al 1200 mg/1200 mg/30 ML UDCUP ONE (11:54)
[2018-02-27] MEDS ORDERED: Lidocaine Viscous Sol 2% 15 ml UD Cup ONE (11:54)
[2018-02-27 12:10] LABS: #Eosinphils 0.1 thou/uL (0.0-0.7); #Lymphocytes 0.5 thou/uL (1.20-3.40); #Monocytes 0.2 thou/uL (0.11-0.59); #Neutrophils 2.9 thou/uL (1.40-6.50); %Basophils 0.9 % (0.0-1.0); %Eosinophils 2.3 % (0.0-10.0); %Lymphocytes 13.6 % (21.0-51.0); %Monocytes 5.5 % (0.0-10.0); %Neutrophils 77.8 % (42.0-75.0); Hemoglobin 11.6 g/dL (14.0-18.0); Mean Corpuscular HGB CONC 29.6 g/dL (32.0-36.0); Mean Corpuscular Hemoglobin 30.1 pg (27.0-31.0); Mean Platelet Volume 7.7 fL (7.4-10.4); Platelet Count 116 thou/uL (130-400); RBC Distribution Width 15.2 % (11.5-14.5); Red Blood Cell (RBC) Count 3.87 mill/uL (4.70-6.10); White Blood Cell (WBC) Count 3.8 thou/uL (4.8-10.8)
[2018-02-27 12:29] LABS: ALT (SGPT) 23 U/L (8-55); AST (SGOT) 18 U/L (5-34); Albumin 3.1 g/dL (3.4-4.8); Alkaline Phosphatase 62 U/L (40-150); BUN (Urea Nitrogen) 22 mg/dL (8.4-25.7); Bilirubin, Total 0.6 mg/dL (0.2-1.2); Calc. Creatinine Clearance 0 mL/min (70-130); Calcium 9.2 mg/dL (7.8-10.44); Estimated GFR-MDRD 82; Glucose 147 mg/dL (80-115); Protein, Total 7.1 g/dL (5.8-8.1)
[2018-02-27 12:38] LABS: Anion Gap 14 mmol/L (10-20); Carbon Dioxide 39 mmol/L (23-31); Chloride 97 mmol/L (98-107); Potassium 4.7 mmol/L (3.5-5.1); Sodium 145 mmol/L (136-145)
[2018-02-27] MEDS ORDERED: methylPREDNISolone Sod Succ/PF 125 MG/2 ML VIAL ONE (12:44)
[2018-02-27] MEDS ORDERED: Sterile Water 10 ML ONE ×2 (12:44→12:45)
[2018-02-27 12:59] LABS: CKMB 1.3 ng/mL (0-6.6)
--- NOTE | 2018-02-27 13:58 | RAD ---
FRONTAL RADIOGRAPH CHEST: Date: 02-27-18 Comparison: 02-11-18 History: Shortness of breath. Respiratory distress. FINDINGS: There increased density in bilateral perihilar regions suggesting a combination of interstitial opaci ty, pulmonary vascular congestion and airspace disease, right greater than left. There is increased d ensity in the right paratracheal region which suggests airspace disease, vascular prominence and/or l ymphadenopathy. Hazy bibasilar densities suggest a combination of pleural and parenchymal opacity, ri ght greater than left. IMPRESSION: Increased density in the perihilar regions in both lung bases which may signify infectious pneumoniti s, aspiration or edema. Increased density in the right paratracheal region could be on the basis of s uperimposed lymphadenopathy. Recommend follow up PA and lateral imaging following treatment to docume nt resolution. If abnormalities persist, CT suggested. POS: NIEVES
[2018-02-27 15:21] LABS: INR-International Normal Ratio 1.8; PTT 29.2 SEC (22.9-36.1); Prothrombin Time 21.3 SEC (12.0-14.7)
[2018-02-27] MEDS ORDERED: Aspirin 325 MG TAB ONE (17:20)
[2018-02-27] MEDS ORDERED: Enoxaparin Sodium 100 MG/ML SYRINGE ONE (17:21)
[2018-02-27] MEDS ORDERED: Piperacillin/Tazobactam 4.5 GM VIAL ONE ×2 (17:21→17:22)
[2018-02-27 18:54] LABS: Critical Call Chem Troponin I DECREASE; Troponin I 0.763 ng/mL (< 0.028)
[2018-02-27] MEDS ORDERED: Dextrose 50% Abboject 50 ML SYRINGE SLOW IVP PRN (19:41)
[2018-02-27] MEDS ORDERED: HumaLOG 300 UNITS/3 ML VIAL SC PRN (19:41)
[2018-02-27] MEDS ORDERED: Guaifenesin DM 100-10/5 ML UDCUP PO PRN (19:41)
[2018-02-27] MEDS ORDERED: Dextrose 5% in Water 1,000 ML IV PRN (19:41)
[2018-02-27] MEDS ORDERED: Acetaminophen 325 MG TAB PO PRN (19:41)
[2018-02-27] MEDS ORDERED: Senokot S 8.6-50 MG TAB PO PRN (19:41)
--- NOTE | 2018-02-27 20:34 | HP ---
REASON FOR ADMISSION: Acute respiratory failure with hypoxia. HISTORY OF PRESENTING ILLNESS: The patient is a morbidly obese male, who was recuperating in the rehab. He apparently got a new bed and he was trying to learn about very buttons. He apparently pressed one of the buttons, which made him slide off the bed and hit the floor face first. He had a bloody nose and became hypoxic. His saturations dropped down to 70% at the rehab. He was transferred to emergency room here for further workup. The patient weighs around nearly 225 kg and uses CPAP when he is on the bed. Here in the ER, he was tried on various nasal cannula oxygen and was given multiple nebulization. None of it seemed to work and finally was placed on BiPAP. The patient is barely able to sit up on the bed at the rehab so far. The plan was to ambulate from tomorrow per [id number] who is here at bedside. PAST MEDICAL AND SURGICAL HISTORY: Morbid life-threatening obesity, hypertension, GERD, obstructive sleep apnea, chronic lymphedema in lower extremities, history of DVT and PE on Coumadin, chronic lymphedema/venous statis with ulcerations in the lower extremity, abdominal hernia surgery 25 years ago. CURRENT MEDICATIONS: The patient was discharged on, 1. Coumadin 5 mg p.o. daily. 2. Norvasc 5 mg daily. 3. Aspirin 81 mg daily. 4. Pepcid 20 mg twice daily. 5. DuoNeb q.i.d. and q.2 hourly p.r.n. 6. Lisinopril 2.5 mg daily. ALLERGIES: NO KNOWN DRUG ALLERGIES. PERSONAL HISTORY: Quit smoking in November of last year. Does not abuse alcohol or drugs. FAMILY HISTORY: Mother at the age of 52, she had history of ovarian cancer. Father at the age of 94 years, likely from natural causes. The patient is . He has gotten a stepson and daughter. CODE STATUS: Full per patient, this was discussed with him. He clearly is aware of life-threatening obesity. Power of senior trial attorney is his [id number] who is here at bedside. REVIEW OF SYSTEMS: CONSTITUTIONAL: Negative for weight loss or gain, ability to conduct usual activities. SKIN: Negative for rash, itching. EYES: Negative for double vision, pain. ENT/MOUTH: Negative for nose bleeding, neck stiffness, pain, tenderness. CARDIOVASCULAR: Negative for palpitations, dyspnea on exertion, orthopnea. RESPIRATORY: Negative for shortness of breath, wheezing, cough, hemoptysis, fever or night sweats. GASTROINTESTINAL: Negative for poor appetite, abdominal pain, heartburn, nausea, vomiting, constipation, or diarrhea. GENITOURINARY: Negative for urgency, frequency, dysuria, nocturia. MUSCULOSKELETAL: Negative for pain, swelling. NEUROLOGIC/PSYCHIATRIC: Negative for anxiety, depression. ALLERGY/IMMUNOLOGIC: Negative for skin rash, bleeding tendency. PHYSICAL EXAMINATION: GENERAL: The patient is a 62-year-old male, who is currently not in any acute distress and is comfortable on BiPAP. VITAL SIGNS: Blood pressure 130/70, pulse 94 per minute, respiratory rate 22 per minute, temperature 98 degrees Fahrenheit, saturating 70% on arrival and is on room air on arrival and currently 94% on BiPAP. NECK: Supple. No elevated JVD. EYES: Extraocular muscles intact. Pupils reacting to light. Oral cavity, mucous membranes are moist. No exudates or congestion. Oral cavity; mucous membranes are moist. No exudates or congestion. CARDIOVASCULAR: S1 and S2 heard. Regular rhythm. RESPIRATORY: Air entry 1+ bilateral. Scattered rhonchi plus bilateral. ABDOMEN: Soft. Bowel sounds heard. The patient has right lateral abdominal wall, likely ulceration which is covered in a gauze at present. We will involve wound care for the same. He also has abdominal wall edema in the lower half of the abdomen and the posterior torso. EXTREMITIES: There is 2 to 3+ peripheral edema. No calf tenderness. VASCULAR SYSTEM: 1+ in the upper extremities. Lower extremities are barely palpable due to tethering and thickening of skin in both lower extremities. CENTRAL NERVOUS SYSTEM: No gross focal deficits noted. The patient moves all four extremities. PSYCHIATRIC SYSTEM: No hallucinations or delusions. LABORATORY DATA AND DIAGNOSTIC STUDIES: White count of 3.8, H and H 11 and 39, platelet count 116, MCV is 102 with 77% neutrophils. PT and INR 21 and 1.8, PTT 29. Serum bicarb 39, BUN 22, creatinine 0.9, serum glucose 147. Troponin I indeterminate, peaking up to 0.93. BNP 280. Albumin is 3.1. Chest x-ray done shows mild perihilar region increased density, likely due to edema. EKG done shows normal sinus rhythm at 88 beats per minute. There is chronic RBBB seen. QRS duration is 154 milliseconds. Corrected QT is 474 milliseconds. CLINICAL IMPRESSION AND PLAN: The patient will be admitted to [facility] for acute respiratory failure with hypoxia. The patient was recuperating at the rehab and the plan was to start ambulating from tomorrow, but the patient apparently fell to the floor face down. He apparently got a new bed and he was trying to learn the various buttons on it when this happened. Soon, the patient went into hypoxic respiratory failure and was transferred here. We will continue him on BiPAP. The patient likely requires CPAP whenever he is on bed. He has life-threatening obesity. The patient and family are clearly aware of this with poor prognosis. The plan is to wean him off BiPAP and placed him on CPAP and transfer him back to rehab for further recuperation at the earliest. He will be on doxycycline p.o., Solu-Medrol, DuoNebs, and will continue his Coumadin as before along with aspirin and Norvasc. We will consult Dr. Garvey, who is on-call for Pulmonology and Critical Care. Job ID: [id number]
[2018-02-27] MEDS: Doxycycline 100 MG CAP PO SCH (21:28)
[2018-02-27] MEDS: guaiFENesin ER 600 MG TAB PO SCH (21:28)
[2018-02-27] MEDS: Benzonatate 100 MG CAP PO SCH (21:28)
[2018-02-27] MEDS: Famotidine 20 MG TAB PO SCH (21:28)
[2018-02-27 22:54] LABS: Pathc Cast-AUWi Flag 2.32 (0-2.49); Squamous Epithelial 0-3 HPF (0-3); WBC/HPF 21-50 HPF (0-3)
[2018-02-27 22:55] LABS: Bilirubin Small (Negative); Blood, Urine Large (Negative); Clarity CLOUDY (Clear); Glucose, Urine (Dipstick) 100 mg/dL (Negative); Leukocyte Moderate (Negative); Nitrite Positive (Negative); Other Microscopic Description Less than 2 mL rec'd; Protein, Urine (Dipstick) 100 mg/dL (Neg-Trace); Specific Gravity, Urine 1.024 (1.002-1.036); Yeast-AUWi Flag 192.7 (0-25.0)
[2018-02-27 23:02] LABS: Bacteria/HPF 3+ HPF (None Seen)
[2018-02-27 23:03] LABS: Actual Bicarbonate (HCO3a) 43.2 mEq/L (22-28); Calcium, Ionized 1.17 mmol/L (1.12-1.30); Carboxyhemoglobin (COHb) 1.7 gm% (0.0-3.0); Hemoglobin (Hb) 12.6 g/dL (14.0-18.0); O2 Tension (PaO2) 61.9 mmHg (> 80.0); Potassium - ABG Lab 5.31 mmol/L (3.70-5.30); pH, Arterial 7.35 (7.35-7.45)
[2018-02-27 23:03] LABS: Hyaline Casts/LPF 4-6 HYALINE CAST LPF (0-3 Hyaline)
[2018-02-27 23:04] LABS: CO2 Tension 80.7 mmHg (35.0-45.0)
[2018-02-27 23:05] LABS: ALV-art Gradient 51.125 (0-20); Puncture Site RRA
[2018-02-28 06:24] LABS: #Lymphocytes 0.4 thou/uL (1.20-3.40); #Monocytes 0.1 thou/uL (0.11-0.59); #Neutrophils 2.7 thou/uL (1.40-6.50); %Basophils 0.5 % (0.0-1.0); %Eosinophils 0.1 % (0.0-10.0); %Lymphocytes 12.7 % (21.0-51.0); %Monocytes 2.5 % (0.0-10.0); %Neutrophils 84.2 % (42.0-75.0); Hemoglobin 11.2 g/dL (14.0-18.0); Mean Corpuscular HGB CONC 29.7 g/dL (32.0-36.0); Mean Corpuscular Hemoglobin 29.7 pg (27.0-31.0); Mean Platelet Volume 8.4 fL (7.4-10.4); Platelet Count 107 thou/uL (130-400); RBC Distribution Width 15.1 % (11.5-14.5); Red Blood Cell (RBC) Count 3.77 mill/uL (4.70-6.10); White Blood Cell (WBC) Count 3.2 thou/uL (4.8-10.8)
[2018-02-28 06:36] LABS: BUN (Urea Nitrogen) 23 mg/dL (8.4-25.7); Calc. Creatinine Clearance 330 mL/min (70-130); Calcium 9.1 mg/dL (7.8-10.44); Estimated GFR-MDRD Greater than 90; Glucose 166 mg/dL (80-115)
[2018-02-28 06:46] LABS: Anion Gap 11 mmol/L (10-20); Chloride 96 mmol/L (98-107); Potassium 5.7 mmol/L (3.5-5.1); Sodium 142 mmol/L (136-145)
[2018-02-28 06:47] LABS: Carbon Dioxide 41 mmol/L (23-31)
[2018-02-28] MEDS: Doxycycline 100 MG CAP PO SCH (08:32)
[2018-02-28] MEDS: Famotidine 20 MG TAB PO SCH (08:33)
[2018-02-28] MEDS: Benzonatate 100 MG CAP PO SCH ×2 (08:33→16:02)
[2018-02-28] MEDS: guaiFENesin ER 600 MG TAB PO SCH (08:34)
[2018-02-28] MEDS ORDERED: Amlodipine 5 MG TAB PO SCH (09:00)
[2018-02-28] MEDS ORDERED: Aspirin 81 mg Enteric Coated Tablet PO SCH (09:00)
--- NOTE | 2018-02-28 11:23 | CON ---
DATE OF CONSULTATION: SUBJECTIVE: Regino Fraser is a 62-year-old morbidly obese gentleman, well known to me, who apparently got transfer from the rehab yesterday, because he apparently fell off the bed. It is difficult to understand how a 225 kg gentleman fell off the bed, but apparently he was trying to maneuver a switch, and he was brought into the hospital here. Apparently, oxygen level was low. His sats were low. I placed him on his ventilation. This morning, he is awake, alert, responsive, sats 97%. He is absolutely unaware of his medical issues done what oxygen is on, but apparently he is supposed to be on 3 L. He is morbidly obese. Unable to do any kind of activity. He refused the trach during his last admission. PAST MEDICAL HISTORY: High cholesterol, hypertension, morbid obesity, PE, DVT, previous surgery, hernia operation, chronic stasis. MEDICINES: Included, 1. Prednisone. 2. Guaifenesin. 3. Coumadin 6 mg. 4. DuoNeb. 5. Lasix 40. 6. Pepcid. 7. Several different antibiotics. 8. Norvasc 5. SOCIAL HISTORY: Nonsmoker. REVIEW OF SYSTEMS: Otherwise unremarkable. PHYSICAL EXAMINATION: GENERAL: He is awake, alert, and responsive. He is eating breakfast. VITAL SIGNS: Blood pressure of 120/80, pulse 80, sats 96% on 3 L, respiratory rate 18. CHEST: Decreased breath sounds. No wheezing. CARDIAC: Normal S1 and S2. No gallops. ABDOMEN: Massive. LABORATORY DATA: PO2 61, pCO2 80, pH 7.35, on BiPAP. His white count 3000, hemoglobin and hematocrit 11 and 37, platelet count is 107, bicarb is 41. Glucose is elevated. DIAGNOSTIC DATA: His chest x-ray showed morbid obesity without any obvious infiltrates, chronic bibasilar atelectasis. IMPRESSION: 1. [id number] respiratory failure. 2. Chronic obstructive pulmonary disease and obstructive sleep apnea. 3. Gross morbid obesity. 4. Marked metabolic alkalosis. PLAN: Switch off the BiPAP to nasal O2. He needs nocturnal BiPAP in his low-dose prednisone tapered. Empiric antibiotics to be transferred back to the care home later on today. This is a consultation note, 70 minutes, 50% direct patient care. Job ID: [id number]
--- NOTE | 2018-02-28 14:24 | PDOC.PN ---
- Subjective Encounter Start Date: 02/28/18 Encounter Start Time: 07:50 Subjective: breathing better, is on bipap -: oriented well - Objective Resuscitation Status - Order Detail: 02/27/18 19:36 Resuscitation Status Routine Resuscitation Status: FULL: Full Resuscitation MAR Reviewed: Yes Vital Signs & Weight: Vital Signs (12 hours) Temp Pulse Resp BP BP Pulse Ox 02/28/18 12:00 96 02/28/18 11:00 90 L 02/28/18 10:49 97.0 F L 57 L 19 146/67 H 97 02/28/18 10:30 86 L 02/28/18 08:56 59 L 18 96 02/28/18 08:33 64 143/77 H 02/28/18 07:32 95 02/28/18 07:12 96.7 F L 58 L 24 H 148/80 H 98 02/28/18 04:05 97.5 F L 64 19 136/79 96 Weight Weight 550 lb I&O: 02/27/18 02/28/18 03/01/18 06:59 06:59 06:59 Intake Total 680 Output Total 1150 Balance -470 Result Diagrams: 02/28/18 05:31 02/28/18 05:30 Additional Labs: Accuchecks 02/28/18 02/28/18 02/27/18 10:20 05:30 21:30 POC Glucose 143 H 160 H 207 H Phys Exam - Physical Examination HEENT: PERRLA, moist MMs Neck: no JVD, supple Respiratory: no wheezing, no rales Cardiovascular: RRR, no significant murmur Gastrointestinal: soft, non-tender, positive bowel sounds Musculoskeletal: pulses present, edema present Neurological: non-focal, moves all 4 limbs Psychiatric: normal affect, A&O x 3 Dx/Plan (1) Acute on chronic respiratory failure with hypoxia and hypercapnia Code(s): J96.21 - ACUTE AND CHRONIC RESPIRATORY FAILURE WITH HYPOXIA; J96.22 - ACUTE AND CHRONIC RESPIRATORY FAILURE WITH HYPERCAPNIA Status: Acute (2) DVT (deep venous thrombosis) Status: Chronic Qualifiers: DVT location: lower extremity Chronicity: chronic (3) Metabolic alkalosis Code(s): E87.3 - ALKALOSIS Status: Chronic Comment: Due to lasix and compensatory from respiratry acidosis (4) Steroid-induced hyperglycemia Code(s): R73.9 - HYPERGLYCEMIA, UNSPECIFIED; T38.0X5A - ADVERSE EFFECT OF GLUCOCORT/SYNTH ANALOG, INIT Status: Acute Comment: Add ALKA Martin (5) Chronic anticoagulation Code(s): Z79.01 - RIG SUPERINTENDENT (CURRENT) USE OF ANTICOAGULANTS Status: Chronic (6) Morbid obesity Code(s): E66.01 - MORBID (SEVERE) OBESITY DUE TO EXCESS CALORIES Status: Chronic Comment: Weight loss program (7) CHUCHO (obstructive sleep apnea) Code(s): G47.33 - OBSTRUCTIVE SLEEP APNEA (ADULT) (PEDIATRIC) Status: Chronic Comment: Severe, life-threatening, outpt sleep study after d/c - Plan revisited patient again around 11 am, is comfortable on nasal canula now -: d/w rehab liason if they can take him back today -: is cleared for dc by -: to use bipap at night -: urine cs are pending * .
[2018-02-28 16:06] VITALS: BMI 74.5
[2018-02-28] MEDS ORDERED: Warfarin Sodium 2 MG TAB PO SCH (17:00)
[2018-02-28] MEDS ORDERED: Warfarin Sodium 5 MG TAB PO SCH (17:00)
[2018-02-28 19:32] VITALS: BP 118/62; TEMP 98.2
[2018-02-28] MEDS ORDERED: Ciprofloxacin 500 MG TAB PO SCH (20:00)
[2018-03-01] MEDS ORDERED: predniSONE 20 MG TAB PO SCH (08:00)
[2018-03-01] MEDS ORDERED: AcetaZOLAMIDE 250 MG TAB PO SCH (09:00)
--- NOTE | 2018-03-01 14:01 | DIS ---
DATE OF ADMISSION: 02/27/2018 DATE OF DISCHARGE: 02/28/2018 DISCHARGE DISPOSITION: Inpatient rehab. PRIMARY DISCHARGE DIAGNOSES: Acute on chronic respiratory failure with hypoxia, morbid obesity with hypoventilation syndrome and obstructive sleep apnea, history of deep venous thrombosis on chronic anticoagulation, steroid-induced hyperglycemia, and metabolic acidosis. PROCEDURES DONE DURING HOSPITALIZATION: The patient had a chest x-ray done on the day of admission, which showed no clear infiltrate. Blood cultures x2, no growth. Influenza A and B antigens were negative. Urine culture grew Pseudomonas sensitive to all antibiotics except aztreonam. LABORATORY DATA: H and H 11 and 37 and platelet count 107. Serum bicarb is 41, BUN 23, and creatinine 0.8. Ammonia levels were 20. Troponin I was indeterminate, peaking up to 0.93. BNP 280. Albumin is 3.1. INPATIENT CONSULT: Jimbo Garvey MD for Pulmonology. DISCHARGE MEDICATIONS: 1. Norvasc 5 mg p.o. daily. 2. Aspirin 81 mg p.o. daily. 3. Ciprofloxacin 500 mg p.o. twice daily for 5 days for urinary tract infection. 4. Coumadin 6 mg p.o. daily. 5. Prednisone tapering dose starting at 10 mg twice daily. Prednisone taper as prescribed, starting at 10 mg twice daily. 6. DuoNeb q.6 hourly. 7. Mucinex 600 mg p.o. twice daily. 8. Lasix 40 mg p.o. daily. 9. Pepcid 20 mg twice daily. 10. Doxycycline 100 mg p.o. twice daily for acute respiratory failure with hypoxia for another 7 days. 11. Tessalon 100 mg p.o. 3 times daily. 12. Aspirin 81 mg p.o. daily. ALLERGIES: NO KNOWN DRUG ALLERGIES. DISCHARGE PLAN: The patient to follow up with primary care physician in 1 week. BRIEF COURSE DURING HOSPITALIZATION: The patient initially was sent from inpatient rehab after he accidentally fell and dropped down his saturations. The patient weighs around 220 kilos or more and has history of chronic respiratory failure with obesity hypoventilation and likely sleep apnea. In view of this, he was briefly placed under observation in IMCU as he was on BiPAP. The patient was slowly weaned off BiPAP. He needs to use CPAP whenever he sleeps. He was evaluated by Dr. Garvey as well. He had an incidental finding of urinary tract infection as well. The patient has been placed on ciprofloxacin for that. He needs to continue steroid taper and doxycycline as prescribed. The patient should start mobilizing himself at the rehab. The patient is being discharged back to inpatient rehab for mobilization. He also has life-threatening obesity and needs to have further workup towards the same including possible outpatient appointment with Bariatric Surgery. He is hemodynamically stable and will be shortly discharged. Dr. Garvey has evaluated the patient and has cleared him for discharge today. Job ID: [id number]
== END 2018-02-28 20:30 | DRG 189 ==
LOC: ERS 10:55 → IMCU/EMU 20:39
PROVIDERS: ADMIT Internal Medicine; ATTEND Internal Medicine
PROC: 5A09357 Assistance with Respiratory Ventilation, Less than 24 Consecutive Hours, Continuous Positive Airway Pressure (ICD-10-PCS; principal; 2018-02-27)
DX: J96.21 Acute and chronic respiratory failure with hypoxia (principal); E87.3 Alkalosis; E66.2 Morbid (severe) obesity with alveolar hypoventilation; E87.2 Acidosis; N39.0 Urinary tract infection, site not specified; Z68.45 Body mass index [BMI] 70 or greater, adult; I10 Essential (primary) hypertension; K21.9 Gastro-esophageal reflux disease without esophagitis; I89.0 Lymphedema, not elsewhere classified; J96.22 Acute and chronic respiratory failure with hypercapnia; E78.00 Pure hypercholesterolemia, unspecified; J44.9 Chronic obstructive pulmonary disease, unspecified; R73.9 Hyperglycemia, unspecified; T38.0X5A Adverse effect of glucocorticoids and synthetic analogues, initial encounter; Z86.718 Personal history of other venous thrombosis and embolism; Z86.711 Personal history of pulmonary embolism; Z79.01 Long term (current) use of anticoagulants; Z79.82 Long term (current) use of aspirin; Z79.899 Other long term (current) drug therapy; Z87.891 Personal history of nicotine dependence; Z98.890 Other specified postprocedural states
CPT/HCPCS: 36415; 36416; 71045; 80048; 80053; 81001; 82140; 82553; 82805; 83605; 83880; 84484; 85025; 85730; 87040; 87077; 87086; 87186; 87804; 93005; 94640; 94660; A4216; J1650; J2543; J2920; J2930; J3370; J7620

== ENCOUNTER 2018-10-10 19:03 | Inpatient (IN) | payer MEDICARE, MEDICAID ==
[2018-10-10 19:29] LABS: #Eosinphils 0.1 thou/uL (0.0-0.7); #Lymphocytes 1.1 thou/uL (1.20-3.40); #Monocytes 0.3 thou/uL (0.11-0.59); #Neutrophils 3.3 thou/uL (1.40-6.50); %Basophils 0.4 % (0.0-1.0); %Eosinophils 1.6 % (0.0-10.0); %Lymphocytes 21.9 % (21.0-51.0); %Monocytes 6.9 % (0.0-10.0); %Neutrophils 69.1 % (42.0-75.0); Hemoglobin 10.8 g/dL (14.0-18.0); Mean Corpuscular HGB CONC 30.5 g/dL (32.0-36.0); Mean Corpuscular Hemoglobin 30.2 pg (27.0-31.0); Mean Corpuscular Volume 99.2 fL (78.0-98.0); Mean Platelet Volume 6.6 fL (7.4-10.4); Platelet Count 219 thou/uL (130-400); RBC Distribution Width 14.2 % (11.5-14.5); Red Blood Cell (RBC) Count 3.57 mill/uL (4.70-6.10); White Blood Cell (WBC) Count 4.8 thou/uL (4.8-10.8)
[2018-10-10 19:37] LABS: INR-International Normal Ratio 2.1; Prothrombin Time 23.3 SEC (12.0-14.7)
[2018-10-10 19:46] LABS: AST (SGOT) 12 U/L (5-34); Bilirubin, Total 0.3 mg/dL (0.2-1.2); Calcium 9.2 mg/dL (7.8-10.44); Chloride 97 mmol/L (98-107); Potassium 4.3 mmol/L (3.5-5.1); Sodium 143 mmol/L (136-145)
--- NOTE | 2018-10-10 19:49 | RAD ---
CHEST ONE VIEW: 10/10/18 COMPARISON: 02/27/18 HISTORY: Shortness of breath. Chest tightness. FINDINGS: Enlarged cardiac silhouette. Prominent pulmonary vessels. Bibasilar pleural and parenchymal changes. No pneumothorax. Note is made of a tracheostomy. IMPRESSION: Congestive heart failure. Continued surveillance to ensure resolution. POS: PPP
[2018-10-10 19:51] LABS: ALT (SGPT) 7 U/L (8-55); Albumin 3.1 g/dL (3.4-4.8); Alkaline Phosphatase 60 U/L (40-150); Anion Gap 14 mmol/L (10-20); BUN (Urea Nitrogen) 18 mg/dL (8.4-25.7); CK (CPK) 15 U/L (30-200); Calc. Creatinine Clearance 0 mL/min (70-130); Carbon Dioxide 37 mmol/L (23-31); Estimated GFR-MDRD 71; Globulin 4.8 g/dL (2.4-3.5); Glucose 123 mg/dL (80-115); Lipase 12 U/L (8-78); Protein, Total 7.9 g/dL (5.8-8.1)
[2018-10-10] MEDS ORDERED: Furosemide 40 MG/4 ML VIAL ONE (20:23)
[2018-10-10] MEDS ORDERED: Ondansetron ODT 4 MG TAB PO PRN (21:36)
[2018-10-10] MEDS ORDERED: Ondansetron PF 4 MG/2 ML Vial IVP PRN (21:36)
[2018-10-10] MEDS ORDERED: Acetaminophen 325 MG TAB PO PRN (21:36)
[2018-10-10] MEDS ORDERED: Acetaminophen 650 MG Suppository PR PRN (21:36)
[2018-10-10 23:03] LABS: Troponin I Less than 0.010 ng/mL (< 0.028)
[2018-10-11 01:34] LABS: #Eosinphils 0.1 thou/uL (0.0-0.7); #Lymphocytes 0.9 thou/uL (1.20-3.40); #Monocytes 0.4 thou/uL (0.11-0.59); #Neutrophils 2.9 thou/uL (1.40-6.50); %Basophils 0.5 % (0.0-1.0); %Eosinophils 1.5 % (0.0-10.0); %Monocytes 8.6 % (0.0-10.0); %Neutrophils 68.4 % (42.0-75.0); Hemoglobin 10.3 g/dL (14.0-18.0); Mean Corpuscular HGB CONC 31.1 g/dL (32.0-36.0); Mean Corpuscular Hemoglobin 30.9 pg (27.0-31.0); Mean Corpuscular Volume 99.2 fL (78.0-98.0); Mean Platelet Volume 6.8 fL (7.4-10.4); Platelet Count 197 thou/uL (130-400); RBC Distribution Width 14.3 % (11.5-14.5); Red Blood Cell (RBC) Count 3.35 mill/uL (4.70-6.10); White Blood Cell (WBC) Count 4.2 thou/uL (4.8-10.8)
[2018-10-11 01:47] LABS: Troponin I Less than 0.010 ng/mL (< 0.028)
[2018-10-11 02:02] LABS: BUN (Urea Nitrogen) 18 mg/dL (8.4-25.7); Calc. Creatinine Clearance 148 mL/min (70-130); Calcium 9.1 mg/dL (7.8-10.44); Estimated GFR-MDRD 66; Glucose 159 mg/dL (80-115)
[2018-10-11 02:11] LABS: Anion Gap 14 mmol/L (10-20); Carbon Dioxide 35 mmol/L (23-31); Chloride 98 mmol/L (98-107); Sodium 143 mmol/L (136-145)
[2018-10-11] MEDS: Furosemide 40 MG/4 ML VIAL SLOW IVP SCH ×2 (05:48→15:52)
[2018-10-11] MEDS: Enoxaparin Sodium 40 MG/0.4 ML SYRINGE SC SCH (09:40)
--- NOTE | 2018-10-11 11:11 | CON ---
DATE OF CONSULTATION: HISTORY OF PRESENT ILLNESS: A 62-year-old morbidly obese gentleman, who was brought into the ER from apparently home with shortness of breath and cough. He is 195 kg. In the ER, his saturations were 93 on 3 L and blood pressure 129/60. He has a trach in place #8 [place]. He is vented at nighttime. He has no fever or chills. His chest x-ray in the ER was otherwise unremarkable. PAST MEDICAL HISTORY: Morbid obesity, sleep apnea, permanent trach, hypertension, severe deconditioning, and chronic DVT and PE. PAST SURGICAL HISTORY: Previous surgeries, hernia. SOCIAL HISTORY: Alcohol, none. Former smoker. HOME MEDICATIONS: Includes; 1. Coumadin 7.5. 2. Flomax 0.4. 3. Nystatin. 4. Melatonin. 5. Neb treatments. 6. Symbicort. 7. Diamox. 8. Xanax. ALLERGIES: NONE. REVIEW OF SYSTEMS: Otherwise, 10-point negative. PHYSICAL EXAMINATION: GENERAL: Awake, alert, and responsive. VITAL SIGNS: Saturations are 100% on trach full, temperature 97, blood pressure 124/74, and respiratory rate 18. CHEST: No wheezing or crackles. CARDIAC: Normal S1 and S2. No gallops. ABDOMEN: No masses. LABORATORY DATA: Unremarkable. His BNP is normal. His INR is 2.1. IMPRESSION AND PLAN: 1. Morbid obesity, sleep apnea, and permanent trach. 2. Bronchitis. 3. Previous deep venous thrombosis/pulmonary embolism. Restart home medication. Continue supportive care, PT, and neb treatments. Hopefully, he can be discharged to home in the next 24 to 48 hours. Consultation note, 70 minutes, 50% direct patient care. Job ID: [id number]
[2018-10-11] MEDS ORDERED: Acetaminophen 325 MG TAB PO PRN (12:52)
[2018-10-11] MEDS ORDERED: Senokot S 8.6-50 MG TAB PO PRN (12:52)
[2018-10-11] MEDS ORDERED: ALPRAZolam 0.5 MG TAB PO PRN (12:55)
[2018-10-11] MEDS: Lactinex Tablet PO SCH ×2 (15:53→20:08)
[2018-10-11] MEDS: Warfarin Sodium 7.5 MG TAB PO SCH (15:53)
--- NOTE | 2018-10-11 16:20 | PRG ---
DATE OF SERVICE: 10/11/2018 SUBJECTIVE: The patient is seen and examined at the bedside. He is on BiPAP at the time of my visit. He is connected through his tracheostomy. He is able to talk. His appetite is fair. His shortness of breath is somewhat better. OBJECTIVE: VITAL SIGNS: Blood pressure is 125/70, pulse is 63, respirations 15, O2 saturation 94% on BiPAP. GENERAL: He is a big man. His BMI is 43. He lost about 100 pounds recently. HEENT: His pupils are responding to light properly. Sclerae are nonicteric. Oral mucosa is somewhat dry. NECK: Tracheostomy tube in place, connected to the BiPAP machine. LUNGS: Breath sounds diminished at both bases. No wheezing or crackles. HEART: S1 and S2 normal. ABDOMEN: Soft, obese, and nontender. EXTREMITIES: Massive lymphedema on both lower extremities. NEUROLOGIC: He is alert and oriented x4. There are no any motor deficits. LABORATORY DATA: White count of 4.2, hemoglobin of 10.3, hematocrit 33.2, platelet count 197,000. Sodium of 143, potassium 4.0, chloride 98, CO2 of 35, BUN 18, creatinine 1.13, and glucose 159. Three sets of troponin I within normal limits. IMPRESSION: 1. Respiratory failure. 2. Previous history of pulmonary embolism and previous history of deep venous thrombosis. 3. Morbid obesity. 4. Sleep apnea. 5. Tracheostomy status. PLAN: Plan is to continue his current regimen. Continue BiPAP per Pulmonary. The patient was seen by Dr. Garvey. We will continue his home medications. We will continue his warfarin. Continue his furosemide, melatonin, inhaled steroids, Pulmicort, alprazolam as needed, and Floranex along with acetazolamide. We will check his INR and PT and PTT daily. He is appropriately anticoagulated at this point. Job ID: [id number]
[2018-10-11] MEDS ORDERED: Warfarin Sodium 2 MG TAB PO SCH (17:00)
[2018-10-11] MEDS: Budesonide 0.5 MG/2 ML NEB NEB SCH (18:28)
[2018-10-11] MEDS: Melatonin 3 MG TAB PO PRN (20:08)
[2018-10-11] MEDS: AcetaZOLAMIDE 250 MG TAB PO SCH (20:09)
[2018-10-12 05:05] LABS: INR-International Normal Ratio 1.7; Prothrombin Time 19.8 SEC (12.0-14.7)
[2018-10-12] MEDS: Furosemide 40 MG/4 ML VIAL SLOW IVP SCH (06:48)
--- NOTE | 2018-10-12 07:37 | HP ---
CHIEF COMPLAINT: Shortness of breath. CODE STATUS: Full code. PRIMARY CARE DOCTOR: Out of town physician. HISTORY OF PRESENT ILLNESS: This is a 62-year-old male patient with past medical history of COPD, morbid obesity, status post trach due to difficult intubation in the past and the patient needing a vent support overnight to be able to sleep. The patient came to the hospital at this time complaining of severe rather worsening shortness of breath. The patient has saturation in the 60s and that was abnormal for him and getting very tired easily. For that reason, he was admitted to the hospital. The patient was seen at bedside. Vital signs are stable. Continue to monitor, reconcile home medications. REVIEW OF SYSTEMS: All systems were reviewed and negative except for the findings mentioned above. PAST MEDICAL HISTORY: Positive for hyperlipidemia; pulmonary embolism, 20 years ago; morbid obesity; DVT, 2014; pulmonary embolism, 2018. PAST SURGICAL HISTORY: Hernia; thrombectomy, 25 years ago. PSYCHIATRIC HISTORY: No previous psych history. SOCIAL HISTORY: No alcohol use. No drugs. The patient has quit smoking one year ago. FAMILY HISTORY: Noncontributory to current presentation. It was reviewed with him. KNOWN ALLERGIES: No known drug allergies. REPORTED MEDICATIONS: 1. Acetazolamide. 2. Furosemide. 3. Warfarin. 4. Acetaminophen. 5. Acidophilus. 6. Albuterol. 7. Alprazolam. 8. Budesonide. 9. Ipratropium/albuterol. 10. Melatonin. 11. Zofran. 12. Potassium chloride. 13. Senna. 14. Tamsulosin. PHYSICAL EXAMINATION: VITAL SIGNS: On presentation, blood pressure 129/60 with heart rate 77, respiratory rate was 22, temperature 98.3. Pain was 0/10. Oxygen saturation was 93 on 3 L through the trach collar. GENERAL APPEARANCE: The patient is morbidly obese. He seems stable now on the current settings. HEENT: The patient has a trach. Moist oral mucosae. RESPIRATORY: The patient has a trach. Decreased bilateral breath sounds with scattered rales. Expansion is decreased. CARDIOVASCULAR: Normal rate. Regular rhythm. No murmurs. No gallop. Bilateral leg edema that is chronic, severe. The patient has lymphedema. ABDOMEN: The patient is morbidly obese. It is soft, not distended with bowel sounds are present. EXTREMITIES: The patient has severe lymphedema in the lower extremities. Mobility is at baseline. SKIN: The patient has chronic changes in color and temperature in bilateral lower extremities. The capillary refill seems to be intact. NEUROLOGIC: No evidence of any new focal weakness. Cranial nerves seems to be intact. DIAGNOSTIC DATA: EKG was reviewed. The patient has RBBB, normal sinus rhythm with a rate of 73. No other significant acute findings. Chest x-ray was reviewed. The patient has a congestive heart failure. LABORATORY DATA: The labs were reviewed. The patient has a white count of 4.8, hemoglobin 10.8, MCV 99.2, platelet count 219. Coagulation; PT 23.3 with INR 2.1. Chemistry; sodium of 143, potassium 4.3, chloride 97, carbon dioxide 37, anion gap 14, BUN 18, creatinine 1.06, GFR 71, glucose 123, calcium 9.2, total bilirubin 0.3. LFTs were negative. CK 15. Beta-natriuretic peptide 154. Serum total protein 7.9, albumin 3.1, globulin 4.8, albumin to globulin ratio 0.6, lipase 12. ASSESSMENT AND PLAN: The patient will be placed in the hospital with following medical problems: 1. Acute hypoxic respiratory failure. The patient has saturation in the 60s at home, even getting oxygen through the trach. The symptoms have improved after getting Lasix in the ER, might be secondary to congestive heart failure exacerbation. We will treat the underlying condition. We will continue the patient on the vent here in the hospital through the trach. Dr. Garvey has been called and we will follow recommendations from him regarding this. 2. Acute congestive heart failure exacerbation that is acute on chronic. The patient was given Lasix. Symptoms have improved. We will continue to diurese during the admission. The patient has also on top of this, chronic severe lymphangitis and morbid obesity. We will monitor the patient and treat accordingly. 3. Morbidly obesity in the past, led to sleep apnea and also on trach since the patient was unable to ventilate properly. The patient has lost around 100 pounds and encouraged to continue to lose weight. 4. History of chronic obstructive pulmonary disease exacerbation. We will reconcile home medications. This might be playing some role in acute presentation. However, the patient has no wheezing at this point. We will monitor and treat accordingly. 5. History of multiple pulmonary embolisms, likely due to underlying comorbidities. The patient is on warfarin. INR is 2.1 that is therapeutic. We will consult pharmacy for warfarin dose adjustment and monitoring warfarin. 6. Chronic normocytic anemia, unclear etiology, stable. This can be followed as outpatient. 7. Chronic metabolic alkalosis, likely secondary to underlying chronic respiratory failure. 8. Deep venous thrombosis prophylaxis. The patient is on chronic anticoagulation. 9. Hyperlipidemia. Low-cholesterol diet is advised. Reconcile home medications. 10. Controlled hypertension. Reconcile home medications. Job ID: [id number]
[2018-10-12] MEDS: Budesonide 0.5 MG/2 ML NEB NEB SCH ×2 (07:45→18:27)
[2018-10-12] MEDS: AcetaZOLAMIDE 250 MG TAB PO SCH ×2 (08:35→20:52)
[2018-10-12] MEDS: Potassium Chloride 20 MEQ TAB PO SCH (08:35)
[2018-10-12] MEDS: Lactinex Tablet PO SCH ×3 (08:35→20:52)
[2018-10-12] MEDS: Aspirin 81 mg Enteric Coated Tablet PO SCH (08:36)
[2018-10-12] MEDS: Tamsulosin HCl 0.4 MG CAP PO SCH (08:36)
[2018-10-12] MEDS: Enoxaparin Sodium 40 MG/0.4 ML SYRINGE SC SCH (08:36)
[2018-10-12] MEDS ORDERED: Furosemide 40 MG TAB PO SCH ×2 (09:00→16:30)
--- NOTE | 2018-10-12 09:19 | PRG ---
DATE OF SERVICE: 10/12/2018 SUBJECTIVE: This morning, he is doing much better. Less short of breath, less coughing, and less wheezing. He is on his home medication at baseline without any distress. OBJECTIVE: VITAL SIGNS: Saturations are 96%, blood pressure 130/60, temperature 97, respirations 18. He was on BIPAP last night. CHEST: Decreased breath sounds. No wheezing. CARDIAC: Normal S1 and S2. No gallops. ABDOMEN: No masses. IMPRESSION: 1. Morbid obesity. 2. Sleep apnea. 3. Chronic obstructive pulmonary disease. 4. Stasis. 5. Deep venous thrombosis and pulmonary embolism. PLAN: He is stable enough to be [facility]. Continue PT, supportive care. Job ID: [id number]
--- NOTE | 2018-10-12 16:19 | PDOC.HOSPP ---
- Subjective Encounter Date: 10/12/18 Encounter Time: 16:17 Subjective: Morbidly obese male with VTEs, permanent tracheostomy requiring mechanical venetilation at nights admitted due to worsening SOB and chest tightness associated with increased leg swelling and low oxygen saturation. Feeling better - Objective Vital Signs & Weight: Vital Signs (12 hours) Temp Pulse Resp Pulse Ox 10/12/18 16:00 97.0 F L 56 L 18 10/12/18 11:11 96.8 F L 10/12/18 10:39 55 L 17 10/12/18 08:00 100 10/12/18 07:46 73 18 10/12/18 07:25 97.0 F L Weight Admit Weight 340 lb Weight 340 lb 11.2 oz Most Recent Monitor Data Heart Rate from ECG 70 NIBP 136/70 NIBP BP-Mean 92 Respiration from ECG 19 SpO2 99 I&O: 10/11/18 10/12/18 10/13/18 06:59 06:59 06:59 Intake Total 640 1500 Output Total 1720 4174 950 [facility]1080 -2670 -950 Result Diagrams: 10/11/18 01:31 10/11/18 01:14 ROS - Medication Medications: Active Medications Generic Name Dose Route Start Last Admin Trade Name Freq PRN Reason Stop Dose Admin Acetazolamide 250 mg 10/11/18 21:00 10/12/18 08:35 Diamox PO 250 mg BID JOHNNIE Administration Acidophilus 1 tab 10/11/18 15:00 10/12/18 15:29 Floranex PO 1 tab TID JOHNNIE Administration Albuterol/Ipratropium 3 ml 10/11/18 11:00 10/12/18 16:00 Duoneb NEB 3 ml [id number] JOHNNIE Administration Aspirin 81 mg 10/12/18 09:00 10/12/18 08:36 Ecotrin PO 81 mg DAILY JOHNNIE Administration Budesonide 0.5 mg 10/11/18 18:30 10/12/18 07:45 Pulmicort Neb Solution NEB 0.5 mg BID-RT JOHNNIE Administration Enoxaparin Sodium 40 mg 10/11/18 09:00 10/12/18 08:36 Lovenox SC 40 mg 0900 JOHNNIE Administration Furosemide 40 mg 10/12/18 09:00 10/12/18 10:15 Lasix PO Not Given DAILY JOHNNIE Melatonin 6 mg 10/11/18 12:52 10/11/18 20:08 Melatonin PO 6 mg HSPRN PRN Administration Insomnia Potassium Chloride 20 meq 10/12/18 08:00 10/12/18 08:35 K-Dur PO 20 meq QAM-WM JOHNNIE Administration Sodium Chloride 10 ml 10/11/18 21:00 10/12/18 08:36 Flush - Normal Saline IVF 10 ml Q12HR JOHNNIE Administration Tamsulosin HCl 0.4 mg 10/12/18 09:00 10/12/18 08:36 Flomax PO 0.4 mg DAILY JOHNNIE Administration Warfarin Sodium 7.5 mg 10/11/18 17:00 10/11/18 15:53 Coumadin PO 7.5 mg 1700 JOHNNIE Administration - Exam awake alert Eye: anicteric sclera ENT: normocephalic atraumatic, moist mucosa Neck - other findings: Trach noted with trach collar Heart: RRR Respiratory - other findings: fair air entry with transmitted sound Gastrointestinal: soft, non-tender, non-distended, normal bowel sounds Gastrointestinal - other findings: morbidly obese Extremeties - other findings: huge legs with chronic venous stasis changes Neurological: CN's grossly intact Psychiatric: A&O x 3 Hosp A/P (1) Tracheostomy dependence Code(s): Z93.0 - TRACHEOSTOMY STATUS Status: Acute (2) Morbid obesity with BMI of 40.0-44.9, adult Code(s): E66.01 - MORBID (SEVERE) OBESITY DUE TO EXCESS CALORIES; Z68.41 - BODY MASS INDEX (BMI) 40.0-44.9, ADULT Status: Acute (3) Chronic acquired lymphedema Code(s): I89.0 - LYMPHEDEMA, NOT ELSEWHERE CLASSIFIED Status: Acute (4) Acute CHF (congestive heart failure) Code(s): I50.9 - HEART FAILURE, UNSPECIFIED Status: Acute Qualifiers: Heart failure type: unspecified Qualified Code(s): I50.9 - Heart failure, unspecified (5) Acute on chronic respiratory failure with hypoxia and hypercapnia Code(s): J96.21 - ACUTE AND CHRONIC RESPIRATORY FAILURE WITH HYPOXIA; J96.22 - ACUTE AND CHRONIC RESPIRATORY FAILURE WITH HYPERCAPNIA Status: Acute (6) Chronic anticoagulation Code(s): Z79.01 - HALF-WAY (CURRENT) USE OF ANTICOAGULANTS Status: Chronic (7) Cor pulmonale, chronic Code(s): I27.81 - COR PULMONALE (CHRONIC) Status: Chronic (8) CHUCHO (obstructive sleep apnea) Code(s): G47.33 - OBSTRUCTIVE SLEEP APNEA (ADULT) (PEDIATRIC) Status: Chronic - Plan Get Echo. Get renal panel and magnesium in the morning. Continue respiratory support
[2018-10-12] MEDS: Warfarin Sodium 7.5 MG TAB PO SCH (17:03)
[2018-10-12] MEDS: Melatonin 3 MG TAB PO PRN (20:52)
[2018-10-13 04:26] LABS: INR-International Normal Ratio 1.7; Prothrombin Time 20.1 SEC (12.0-14.7)
[2018-10-13 04:41] LABS: Albumin 2.8 g/dL (3.4-4.8); BUN (Urea Nitrogen) 18 mg/dL (8.4-25.7); BUN/Creatinine Ratio 16.98; Calc. Creatinine Clearance 158 mL/min (70-130); Calcium 8.7 mg/dL (7.8-10.44); Estimated GFR-MDRD 71; Glucose 138 mg/dL (80-115); Phosphorus 3.4 mg/dL (2.3-4.7)
[2018-10-13 04:50] LABS: Anion Gap 14 mmol/L (10-20); Carbon Dioxide 37 mmol/L (23-31); Chloride 93 mmol/L (98-107); Potassium 4.3 mmol/L (3.5-5.1); Sodium 140 mmol/L (136-145)
[2018-10-13] MEDS: Budesonide 0.5 MG/2 ML NEB NEB SCH ×2 (07:42→18:43)
[2018-10-13] MEDS: Furosemide 40 MG TAB PO SCH ×2 (09:11→17:47)
[2018-10-13] MEDS: Tamsulosin HCl 0.4 MG CAP PO SCH (09:11)
[2018-10-13] MEDS: Potassium Chloride 20 MEQ TAB PO SCH (09:11)
[2018-10-13] MEDS: Lactinex Tablet PO SCH ×3 (09:11→21:44)
[2018-10-13] MEDS: AcetaZOLAMIDE 250 MG TAB PO SCH ×2 (09:11→21:44)
[2018-10-13] MEDS: Aspirin 81 mg Enteric Coated Tablet PO SCH (09:11)
[2018-10-13] MEDS: Enoxaparin Sodium 40 MG/0.4 ML SYRINGE SC SCH (09:12)
--- NOTE | 2018-10-13 09:33 | PRG ---
DATE OF SERVICE: 10/13/2018 SUBJECTIVE: He is better. OBJECTIVE: VITAL SIGNS: Pulse 72, respirations 16, saturations 95% on tracheostomy collar, blood pressure 120/91. CHEST: No wheezing, crackles. CARDIAC: Normal S1, S2. No gallops. ABDOMEN: No masses. ASSESSMENT: 1. Recurrent pulmonary embolism and deep venous thrombosis, on long-term anticoagulation. 2. Morbid obesity. 3. Sleep apnea. 4. Permanent tracheostomy. PLAN: Disposition. Placement any time. PT. Supportive care. Continue Coumadin. We will follow. Job ID: [id number]
--- NOTE | 2018-10-13 13:43 | PDOC.HOSPP ---
- Subjective Encounter Date: 10/13/18 Encounter Time: 13:41 Subjective: Morbidly obese male with VTEs, permanent tracheostomy requiring mechanical ventilation at nights, admitted due to worsening SOB and chest tightness associated with increased leg swelling and low oxygen saturation. Feeling better. No new problem. - Objective Vital Signs & Weight: Vital Signs (12 hours) Temp Pulse Resp Pulse Ox 10/13/18 10:47 66 23 H 96 10/13/18 08:00 97.6 F 99 10/13/18 07:43 95 10/13/18 07:42 72 16 95 10/13/18 07:39 72 16 95 10/13/18 04:00 97.2 F L Weight Admit Weight 340 lb Weight 297 lb 13.512 oz Most Recent Monitor Data Heart Rate from ECG 64 NIBP 143/77 NIBP BP-Mean 99 Respiration from ECG 24 SpO2 90 I&O: 10/12/18 10/13/18 10/14/18 06:59 06:59 06:59 Intake Total 1500 1590 Output Total 4170 4135 Balance -6351 -6162 Result Diagrams: 10/11/18 01:31 10/13/18 04:06 Hospitalist ROS - Medication Medications: Active Medications Generic Name Dose Route Start Last Admin Trade Name Freq PRN Reason Stop Dose Admin Acetazolamide 250 mg 10/11/18 21:00 10/13/18 09:11 Diamox PO 250 mg BID JOHNNIE Administration Acidophilus 1 tab 10/11/18 15:00 10/13/18 09:11 Floranex PO 1 tab TID JOHNNIE Administration Albuterol/Ipratropium 3 ml 10/11/18 11:00 10/13/18 10:47 Duoneb NEB 3 ml [id number] JOHNNIE Administration Aspirin 81 mg 10/12/18 09:00 10/13/18 09:11 Ecotrin PO 81 mg DAILY JOHNNIE Administration Budesonide 0.5 mg 10/11/18 18:30 10/13/18 07:42 Pulmicort Neb Solution NEB 0.5 mg BID-RT JOHNNIE Administration Enoxaparin Sodium 40 mg 10/11/18 09:00 10/13/18 09:12 Lovenox SC 40 mg 0900 JOHNNIE Administration Furosemide 40 mg 10/13/18 08:00 10/13/18 09:11 Lasix PO 40 mg 0800,1600 JOHNNIE Administration Melatonin 6 mg 08/25/19 12:52 10/12/18 20:52 Melatonin PO 6 mg HSPRN PRN Administration Insomnia Potassium Chloride 20 meq 10/12/18 08:00 10/13/18 09:11 K-Dur PO 20 meq QAM-WM JOHNNIE Administration Sodium Chloride 10 ml 10/11/18 21:00 10/13/18 09:12 Flush - Normal Saline IVF 10 ml Q12HR JOHNNIE Administration Tamsulosin HCl 0.4 mg 10/12/18 09:00 10/13/18 09:11 Flomax PO 0.4 mg DAILY JOHNNIE Administration Warfarin Sodium 7.5 mg 10/11/18 17:00 10/12/18 17:03 Coumadin PO 7.5 mg 1700 JOHNNIE Administration - Exam General Appearance: awake alert General - other findings: no distress ENT: normocephalic atraumatic Neck: symmetric Neck - other findings: Tracheostomy noted Heart: RRR Respiratory: no wheezes, no rales, no ronchi, normal chest expansion Gastrointestinal: soft, non-tender, non-distended, normal bowel sounds Gastrointestinal - other findings: morbidly obese with pannus Extremeties - other findings: huge legs with chronic veous stasis changes. No pitting edema Neurological: CN's grossly intact, no focal deficits Psychiatric: normal affect, A&O x 3 Hosp A/P (1) Acute on chronic respiratory failure with hypoxia and hypercapnia Code(s): J96.21 - ACUTE AND CHRONIC RESPIRATORY FAILURE WITH HYPOXIA; J96.22 - ACUTE AND CHRONIC RESPIRATORY FAILURE WITH HYPERCAPNIA Status: Acute (2) Acute CHF (congestive heart failure) Code(s): I50.9 - HEART FAILURE, UNSPECIFIED Status: Acute Qualifiers: Heart failure type: unspecified Qualified Code(s): I50.9 - Heart failure, unspecified (3) Tracheostomy dependence Code(s): Z93.0 - TRACHEOSTOMY STATUS Status: Acute (4) Morbid obesity with BMI of 40.0-44.9, adult Code(s): E66.01 - MORBID (SEVERE) OBESITY DUE TO EXCESS CALORIES; Z68.41 - BODY MASS INDEX (BMI) 40.0-44.9, ADULT Status: Acute (5) Chronic acquired lymphedema Code(s): I89.0 - LYMPHEDEMA, NOT ELSEWHERE CLASSIFIED Status: Acute (6) Chronic anticoagulation Code(s): Z79.01 - OPTOMETRIC ASSISTANT (CURRENT) USE OF ANTICOAGULANTS Status: Chronic (7) Cor pulmonale, chronic Code(s): I27.81 - COR PULMONALE (CHRONIC) Status: Chronic (8) CHUCHO (obstructive sleep apnea) Code(s): G47.33 - OBSTRUCTIVE SLEEP APNEA (ADULT) (PEDIATRIC) Status: Chronic - Plan Continue diuretics. Changed to 40 po bid. Monitor renal function. Continue respiratory support Placement in progress.
[2018-10-13] MEDS: Warfarin Sodium 7.5 MG TAB PO SCH (17:47)
[2018-10-14 05:51] LABS: #Eosinphils 0.1 thou/uL (0.0-0.7); #Lymphocytes 1.1 thou/uL (1.20-3.40); #Monocytes 0.3 thou/uL (0.11-0.59); #Neutrophils 3.4 thou/uL (1.40-6.50); %Basophils 0.4 % (0.0-1.0); %Eosinophils 1.7 % (0.0-10.0); %Lymphocytes 21.9 % (21.0-51.0); %Monocytes 6.8 % (0.0-10.0); %Neutrophils 69.2 % (42.0-75.0); Mean Corpuscular HGB CONC 31.9 g/dL (32.0-36.0); Mean Corpuscular Hemoglobin 31.6 pg (27.0-31.0); Mean Corpuscular Volume 99.3 fL (78.0-98.0); Mean Platelet Volume 7.3 fL (7.4-10.4); Platelet Count 175 thou/uL (130-400); RBC Distribution Width 14.2 % (11.5-14.5); Red Blood Cell (RBC) Count 3.17 mill/uL (4.70-6.10); White Blood Cell (WBC) Count 4.8 thou/uL (4.8-10.8)
[2018-10-14 05:54] LABS: INR-International Normal Ratio 1.7; Prothrombin Time 20.3 SEC (12.0-14.7)
[2018-10-14 06:07] LABS: Albumin 2.7 g/dL (3.4-4.8); BUN (Urea Nitrogen) 19 mg/dL (8.4-25.7); BUN/Creatinine Ratio 17.92; Calc. Creatinine Clearance 138 mL/min (70-130); Calcium 8.6 mg/dL (7.8-10.44); Estimated GFR-MDRD 71; Glucose 114 mg/dL (80-115); Phosphorus 3.5 mg/dL (2.3-4.7)
[2018-10-14 06:16] LABS: Anion Gap 12 mmol/L (10-20); Carbon Dioxide 37 mmol/L (23-31); Chloride 95 mmol/L (98-107); Potassium 4.2 mmol/L (3.5-5.1); Sodium 140 mmol/L (136-145)
[2018-10-14] MEDS: Budesonide 0.5 MG/2 ML NEB NEB SCH ×2 (06:45→18:11)
[2018-10-14] MEDS: Potassium Chloride 20 MEQ TAB PO SCH (08:13)
[2018-10-14] MEDS: Aspirin 81 mg Enteric Coated Tablet PO SCH (08:14)
[2018-10-14] MEDS: Furosemide 40 MG TAB PO SCH ×2 (08:14→17:18)
[2018-10-14] MEDS: Lactinex Tablet PO SCH ×3 (08:14→20:39)
[2018-10-14] MEDS: AcetaZOLAMIDE 250 MG TAB PO SCH ×2 (08:14→20:39)
[2018-10-14] MEDS: Tamsulosin HCl 0.4 MG CAP PO SCH (08:14)
[2018-10-14] MEDS: Enoxaparin Sodium 40 MG/0.4 ML SYRINGE SC SCH (08:14)
--- NOTE | 2018-10-14 09:58 | PRG ---
DATE OF SERVICE: 10/14/2018 SUBJECTIVE: This morning, he is doing well, no shortness of breath, trying to get a placement for him. OBJECTIVE: VITAL SIGNS: Temperature 96, pulse 54, saturations 96%, and blood pressure 120/68. CHEST: No wheezing or crackles. CARDIAC: Normal S1 and S2. No gallops. ABDOMEN: No masses. IMPRESSION: Deep venous thrombosis, pulmonary embolism, morbid obesity, sleep apnea, tracheostomy, nocturnal ventilation. PLAN: Continue supportive care, PT. We will follow. Eventually placement. Job ID: [id number]
[2018-10-14 11:34] VITALS: BMI 37.7
[2018-10-14] MEDS: Warfarin Sodium 5 MG TAB PO SCH (17:20)
--- NOTE | 2018-10-14 20:05 | PDOC.HOSPP ---
- Subjective Encounter Date: 10/14/18 Encounter Time: 12:29 Subjective: Morbidly obese male with VTEs, permanent tracheostomy requiring mechanical ventilation at nights, admitted due to worsening SOB and chest tightness associated with increased leg swelling and low oxygen saturation. Feeling better. No new problem. Participating in therapy - Objective Vital Signs & Weight: Vital Signs (12 hours) Temp Pulse Pulse Resp BP Pulse Ox 10/14/18 19:51 97.0 F L 10/14/18 18:10 63 22 H 100 10/14/18 15:17 97.2 F L 10/14/18 14:27 70 21 H 100 10/14/18 11:29 97.1 F L 10/14/18 10:55 64 20 98 10/14/18 09:15 64 156/71 H Weight Admit Weight 340 lb Weight 293 lb 10.491 oz Most Recent Monitor Data Heart Rate from ECG 73 NIBP 138/75 NIBP BP-Mean 96 Respiration from ECG 13 SpO2 96 I&O: 10/13/18 10/14/18 10/15/18 06:59 06:59 06:59 Intake Total 5287 392 9498 Output Total [address] [place] [phone] Result Diagrams: 10/14/18 05:28 10/14/18 05:28 Hospitalist ROS - Medication Medications: Active Medications Generic Name Dose Route Start Last Admin Trade Name Freq PRN Reason Stop Dose Admin Acetazolamide 250 mg 10/11/18 21:00 10/14/18 08:14 Diamox PO 250 mg BID JOHNNIE Administration Acidophilus 1 tab 10/11/18 15:00 10/14/18 17:18 Floranex PO 1 tab TID JOHNNIE Administration Albuterol/Ipratropium 3 ml 10/11/18 11:00 10/14/18 18:10 Duoneb NEB 3 ml [id number] JOHNNIE Administration Aspirin 81 mg 10/12/18 09:00 10/14/18 08:14 Ecotrin PO 81 mg DAILY JOHNNIE Administration Budesonide 0.5 mg 10/11/18 18:30 10/14/18 18:11 Pulmicort Neb Solution NEB 0.5 mg BID-RT JOHNNIE Administration Enoxaparin Sodium 40 mg 10/11/18 09:00 10/14/18 08:14 Lovenox SC 40 mg 0900 JOHNNIE Administration Furosemide 40 mg 08/27/19 08:00 10/14/18 17:18 Lasix PO 40 mg 0800,1600 JOHNNIE Administration Melatonin 6 mg 10/11/18 12:52 10/12/18 20:52 Melatonin PO 6 mg HSPRN PRN Administration Insomnia Potassium Chloride 20 meq 10/12/18 08:00 10/14/18 08:13 K-Dur PO 20 meq QAM-WM JOHNNIE Administration Sodium Chloride 10 ml 10/11/18 21:00 10/14/18 08:15 Flush - Normal Saline IVF 10 ml Q12HR JOHNNIE Administration Tamsulosin HCl 0.4 mg 10/12/18 09:00 10/14/18 08:14 Flomax PO 0.4 mg DAILY JOHNNIE Administration Warfarin Sodium 10 mg 10/14/18 17:00 10/14/18 17:20 Coumadin PO 10 mg 1700 JOHNNIE Administration - Exam General Appearance: awake alert Eye: anicteric sclera ENT: normocephalic atraumatic, moist mucosa Neck - other findings: tracheostomt with oxygen mask in place Heart: RRR Respiratory: no ronchi, no tachypnea Gastrointestinal: soft, non-tender, normal bowel sounds Extremeties - other findings: large lower extremities with lymphedema changes Neurological: CN's grossly intact Neurological - other findings: conscious and alert Hosp A/P (1) Acute on chronic respiratory failure with hypoxia and hypercapnia Code(s): J96.21 - ACUTE AND CHRONIC RESPIRATORY FAILURE WITH HYPOXIA; J96.22 - ACUTE AND CHRONIC RESPIRATORY FAILURE WITH HYPERCAPNIA Status: Acute (2) Acute CHF (congestive heart failure) Code(s): I50.9 - HEART FAILURE, UNSPECIFIED Status: Acute Qualifiers: Heart failure type: unspecified Qualified Code(s): I50.9 - Heart failure, unspecified (3) Tracheostomy dependence Code(s): Z93.0 - TRACHEOSTOMY STATUS Status: Acute (4) Morbid obesity with BMI of 40.0-44.9, adult Code(s): E66.01 - MORBID (SEVERE) OBESITY DUE TO EXCESS CALORIES; Z68.41 - BODY MASS INDEX (BMI) 40.0-44.9, ADULT Status: Acute (5) Chronic acquired lymphedema Code(s): I89.0 - LYMPHEDEMA, NOT ELSEWHERE CLASSIFIED Status: Acute (6) Chronic anticoagulation Code(s): Z79.01 - [facility] (CURRENT) USE OF ANTICOAGULANTS Status: Chronic (7) Cor pulmonale, chronic Code(s): I27.81 - COR PULMONALE (CHRONIC) Status: Chronic (8) CHUCHO (obstructive sleep apnea) Code(s): G47.33 - OBSTRUCTIVE SLEEP APNEA (ADULT) (PEDIATRIC) Status: Chronic - Plan Continue diuretics. Monitor renal function. Continue respiratory support Awaiting placement
[2018-10-15 06:55] LABS: INR-International Normal Ratio 1.7; Prothrombin Time 19.5 SEC (12.0-14.7)
[2018-10-15] MEDS: Budesonide 0.5 MG/2 ML NEB NEB SCH ×2 (07:18→18:44)
--- NOTE | 2018-10-15 09:55 | PRG ---
DATE OF SERVICE: 10/15/2018 The patient is still in the MICU, trying to get a placement. OBJECTIVE: VITAL SIGNS: On BiPAP, his sats are 96, pulse 57, blood pressure 119/64. He denies any pain or discomfort. CHEST: No wheezing or crackles. CARDIAC: Normal S1, S2. No gallops. ABDOMEN: No masses. IMPRESSION: 1. Chronic obstructive pulmonary disease, sleep apnea, permanent trach, nocturnal BiPAP. 2. Morbid obesity. 3. Chronic deep venous thrombosis and pulmonary embolism. PLAN: 1. He needs placement. 2. PT supportive care. We will follow. Job ID: [id number]
--- NOTE | 2018-10-15 09:59 | PDOC.HOSPP ---
- Subjective Encounter Date: 10/15/18 Encounter Time: 09:57 Subjective: Morbidly obese male with VTEs, permanent tracheostomy requiring mechanical ventilation at nights, admitted due to worsening SOB and chest tightness associated with increased leg swelling and low oxygen saturation. Diuresing well with current diuretic regimen. Feeling better. No new problem. Participating in therapy - Objective Vital Signs & Weight: Vital Signs (12 hours) Temp Pulse Resp Pulse Ox 10/15/18 08:00 97.8 F 99 10/15/18 07:20 57 L 10/15/18 07:18 57 L 16 95 10/15/18 07:17 57 L 16 95 10/15/18 03:56 98.7 F 10/14/18 23:55 97.1 F L 10/14/18 22:47 77 Weight Admit Weight 340 lb Weight 281 lb 15.539 oz Most Recent Monitor Data Heart Rate from ECG 74 NIBP 155/81 NIBP BP-Mean 105 Respiration from ECG 21 SpO2 94 I&O: 10/14/18 10/15/18 10/16/18 06:59 06:59 06:59 Intake Total 340 1260 Output Total 6582 3631 Balance -4030 -4225 Result Diagrams: 10/14/18 05:28 10/14/18 05:28 Hospitalist ROS - Medication Medications: Active Medications Generic Name Dose Route Start Last Admin Trade Name Freq PRN Reason Stop Dose Admin Acetazolamide 250 mg 10/11/18 21:00 10/14/18 20:39 Diamox PO 250 mg BID JOHNNIE Administration Acidophilus 1 tab 10/11/18 15:00 10/14/18 20:39 Floranex PO 1 tab TID JOHNNIE Administration Albuterol/Ipratropium 3 ml 10/11/18 11:00 10/15/18 07:17 Duoneb NEB 3 ml [id number] JOHNNIE Administration Aspirin 81 mg 10/12/18 09:00 10/14/18 08:14 Ecotrin PO 81 mg DAILY JOHNNIE Administration Budesonide 0.5 mg 10/11/18 18:30 10/15/18 07:18 Pulmicort Neb Solution NEB 0.5 mg BID-RT JOHNNIE Administration Enoxaparin Sodium 40 mg 10/11/18 09:00 10/14/18 08:14 Lovenox SC 40 mg 0900 JOHNNIE Administration Furosemide 40 mg 10/13/18 08:00 10/14/18 17:18 Lasix PO 40 mg 0800,1600 JOHNNIE Administration Melatonin 6 mg 10/11/18 12:52 10/12/18 20:52 Melatonin PO 6 mg HSPRN PRN Administration Insomnia Potassium Chloride 20 meq 10/12/18 08:00 10/14/18 08:13 K-Dur PO 20 meq QAM-WM JOHNNIE Administration Sodium Chloride 10 ml 10/11/18 21:00 10/14/18 20:40 Flush - Normal Saline IVF Not Given Q12HR JOHNNIE Tamsulosin HCl 0.4 mg 10/12/18 09:00 10/14/18 08:14 Flomax PO 0.4 mg DAILY JOHNNIE Administration Warfarin Sodium 10 mg 10/14/18 17:00 10/14/18 17:20 Coumadin PO 10 mg 1700 JOHNNIE Administration - Exam General Appearance: awake alert General - other findings: morbidly obese Eye: anicteric sclera ENT: normocephalic atraumatic Neck: supple, symmetric Neck - other findings: tracheostomy with T mask oxygen noted Heart: RRR Respiratory - other findings: fair air entry with transmitted sound Gastrointestinal: soft, non-tender, non-distended, normal bowel sounds Gastrointestinal - other findings: morbidly obese with pannus. intertriginous candidiasis noted Extremities: no edema Extremeties - other findings: larged bilateral lower extremities with chronic lymphedema changes. Neurological: CN's grossly intact, no focal deficits Psychiatric: normal affect, A&O x 3 Hosp A/P (1) Acute on chronic respiratory failure with hypoxia and hypercapnia Code(s): J96.21 - ACUTE AND CHRONIC RESPIRATORY FAILURE WITH HYPOXIA; J96.22 - ACUTE AND CHRONIC RESPIRATORY FAILURE WITH HYPERCAPNIA Status: Acute (2) Acute CHF (congestive heart failure) Code(s): I50.9 - HEART FAILURE, UNSPECIFIED Status: Acute Qualifiers: Heart failure type: unspecified Qualified Code(s): I50.9 - Heart failure, unspecified (3) Tracheostomy dependence Code(s): Z93.0 - TRACHEOSTOMY STATUS Status: Acute (4) Morbid obesity with BMI of 40.0-44.9, adult Code(s): E66.01 - MORBID (SEVERE) OBESITY DUE TO EXCESS CALORIES; Z68.41 - BODY MASS INDEX (BMI) 40.0-44.9, ADULT Status: Acute (5) Chronic acquired lymphedema Code(s): I89.0 - LYMPHEDEMA, NOT ELSEWHERE CLASSIFIED Status: Acute (6) Chronic anticoagulation Code(s): Z79.01 - ACID EXTRACTOR (CURRENT) USE OF ANTICOAGULANTS Status: Chronic (7) Cor pulmonale, chronic Code(s): I27.81 - COR PULMONALE (CHRONIC) Status: Chronic (8) CHUCHO (obstructive sleep apnea) Code(s): G47.33 - OBSTRUCTIVE SLEEP APNEA (ADULT) (PEDIATRIC) Status: Chronic (9) Intertriginous candidiasis Code(s): B37.2 - CANDIDIASIS OF SKIN AND NAIL Status: Acute (10) Fluid overload Code(s): E87.70 - FLUID OVERLOAD, UNSPECIFIED Status: Acute - Plan Continue current diuretics and Monitor renal function. Start nystatin topically Continue respiratory support Awaiting placement
[2018-10-15] MEDS ORDERED: Nystatin Powder 15 GM BOT TOP PRN (10:01)
[2018-10-15] MEDS: Tamsulosin HCl 0.4 MG CAP PO SCH (10:07)
[2018-10-15] MEDS: Potassium Chloride 20 MEQ TAB PO SCH (10:07)
[2018-10-15] MEDS: Lactinex Tablet PO SCH ×3 (10:07→20:20)
[2018-10-15] MEDS: Enoxaparin Sodium 40 MG/0.4 ML SYRINGE SC SCH (10:08)
[2018-10-15] MEDS: Aspirin 81 mg Enteric Coated Tablet PO SCH (10:08)
[2018-10-15] MEDS: Furosemide 40 MG TAB PO SCH ×2 (10:08→15:23)
--- NOTE | 2018-10-15 10:15 | PQF ---
VALARIE YOU OBIBRIAN [id number] CLINICAL DOCUMENTATION IMPROVEMENT CLARIFICATION FORM: ICD-10 Updated PLEASE DO AN ADDENDUM TO THE PROGRESS NOTE WITH ANY DOCUMENTATION UPDATES OR ADDITIONS AND CARRY THROUGH TO DC SUMMARY. THANK YOU. DATE: 10/15/18 ATTN:DR. Carly SCHMITZ Please exercise your independent, professional judgment in responding to the clarification form. Clinical indicators are provided on the bottom of this form for your review. Please check appropriate box(s): ACUTE ON CHRONIC HEART FAILURE: A. TYPE: [ ] Systolic / HFrEF [ ] Diastolic / HFpEF [ ] Combined Systolic / Diastolic [ ] Other diagnosis [ ] Unable to determine In addition, please specify: Present on Admission (POA): [ ] Yes [ ] No [ ] Unable to determine For continuity of documentation, please document condition throughout progress notes and discharge summary. Thank You. CLINICAL INDICATORS - SIGNS / SYMPTOMS / LABS 10/10: BNP 154.9 10/10 CHEST X-RAY IMPRESSION: CONGESTIVE HEART FAILURE 10/10 H&P (MARITZA) A/P 2). ACUTE CONGESTIVE HEART FAILURE EXACERBATION THAT IS ACUTE ON CHRONIC . THE PATIENT WAS GIVEN LASIX. SYMPTOMS IMPROVED. WE WILL CONTINUE TO DIURESE DURING THE ADMISSION. 10/12-10/14 PN (OBAnnie) A/P : 4) ACUTE CONGESTIVE HEART FAILURE, UNSPECIFIED 10/15 ECHO EF IS 65-70%, MODERATELY TO SEVERELY ENLARGED RT VENTRICLE CAVITY, LEFT ATRIUM IS MILDLY DILATED, MILD TRICUSPID REGURGITATION, MODERATELY ELEVATED PULMONARY ARTERY PRESSURE. PA SYSTOLIC PRESSURE ESTIMATED AT 43MM Hg. RISK: HX MORBID OBESITY , HYPERLIPIDEMIA, CHF, HTN ( H&P/ MARITZA) 10/10 TREATMENTS: ECHO ORDERED 10/15 SUPPLEMENTAL OXYGEN (10/10-PRESENT) THANK YOU! NADEGE (This form is maintained as a part of the permanent medical record) 2014 [employer] All Rights Reserved [email or web address] [phone] MTDD
[2018-10-15] MEDS: AcetaZOLAMIDE 250 MG TAB PO SCH ×2 (10:16→20:20)
[2018-10-15] MEDS: Warfarin Sodium 5 MG TAB PO SCH (17:39)
[2018-10-16 04:27] VITALS: BP 135/75
[2018-10-16 05:36] LABS: INR-International Normal Ratio 1.8; Prothrombin Time 20.7 SEC (12.0-14.7)
[2018-10-16 05:54] LABS: Albumin 2.8 g/dL (3.4-4.8); BUN (Urea Nitrogen) 24 mg/dL (8.4-25.7); BUN/Creatinine Ratio 22.22; Calc. Creatinine Clearance 128 mL/min (70-130); Calcium 8.7 mg/dL (7.8-10.44); Estimated GFR-MDRD 69; Glucose 104 mg/dL (80-115); Magnesium 2.1 mg/dL (1.6-2.6); Phosphorus 3.2 mg/dL (2.3-4.7)
[2018-10-16 06:02] LABS: Anion Gap 13 mmol/L (10-20); Carbon Dioxide 35 mmol/L (23-31); Chloride 94 mmol/L (98-107); Sodium 138 mmol/L (136-145)
[2018-10-16] MEDS: Budesonide 0.5 MG/2 ML NEB NEB SCH (08:30)
[2018-10-16] MEDS: AcetaZOLAMIDE 250 MG TAB PO SCH (09:01)
[2018-10-16] MEDS: Aspirin 81 mg Enteric Coated Tablet PO SCH (09:01)
[2018-10-16] MEDS: Lactinex Tablet PO SCH ×2 (09:01→14:46)
[2018-10-16] MEDS: Enoxaparin Sodium 40 MG/0.4 ML SYRINGE SC SCH ×2 (09:02→15:44)
[2018-10-16] MEDS: Potassium Chloride 20 MEQ TAB PO SCH (09:02)
[2018-10-16] MEDS: Furosemide 40 MG TAB PO SCH ×2 (09:02→14:46)
[2018-10-16] MEDS: Tamsulosin HCl 0.4 MG CAP PO SCH (09:02)
--- NOTE | 2018-10-16 09:47 | PRG ---
DATE OF SERVICE: 10/16/2018 SUBJECTIVE: This morning, he is better. He probably can be transferred to long-term care. OBJECTIVE: VITAL SIGNS: Temperature 97, saturations are 96% on his BiPAP, respirations 16, and blood pressure 130/77. CHEST: Anterior rhonchi. CARDIAC: Normal S1 and S2. No gallops. ABDOMEN: No gallops. LABORATORY DATA: INR is 1.8. ASSESSMENT: 1. Recurrent pulmonary embolism/deep venous thrombosis, long-term anticoagulation. 2. Morbid obesity. 3. Sleep apnea. 4. Tracheostomy, nocturnal ventilation. PLAN: Continue supportive care, PT placement. We will follow. Job ID: [id number]
[2018-10-16 11:14] VITALS: TEMP 97.5
--- NOTE | 2018-10-16 12:56 | PDOC.EVN ---
Event Note - Event Note Event Note: discharged to [facility]. discharge summary dictated. #[id number]
[2018-10-16] MEDS ORDERED: Warfarin Sodium 5 MG TAB PO SCH (17:00)
--- NOTE | 2018-10-17 11:29 | DIS ---
DATE OF ADMISSION: 10/10/2018 DATE OF DISCHARGE: 10/16/2018 DISCHARGE DIAGNOSES: 1. Acute on chronic respiratory failure with hypoxia and hypercapnia. 2. Acute on chronic diastolic heart failure. 3. Tracheostomy dependence. 4. Morbid obesity with BMI of 40 to 49. 5. Cor pulmonale, chronic. 6. Pulmonary hypertension. 7. Recurrent venous thromboembolism. 8. Chronic anticoagulation with Coumadin. 9. Intertriginous candidiasis. 10. Obstructive sleep apnea. 11. Obesity hypoventilation syndrome. 12. Fluid overload. 13. Chronic acquired lymphedema. CONSULTS: Pulmonary and Critical Care. HOSPITAL COURSE: Morbidly obese male with known history of chronic respiratory failure due to obesity hypoventilation and obstructive sleep apnea, status post permanent tracheostomy requiring mechanical ventilation at night, admitted due to worsening shortness of breath and chest tightness associated with increased bilateral leg edema and low oxygen saturation. Impression of acute on chronic diastolic heart failure leading to acute on chronic respiratory failure with hypoxia and hypocarbia was made and the patient was started on bronchodilators, diuretics with continuation of oxygen supplementation via the trach during the day and mechanical ventilation at night with good interval improvement. The patient diuresed well with improvement in general condition as well as reduction in massive bilateral leg edema. The patient was back to usual oxygen supplementation and was feeling well, but due to his home situation and physical deconditioning, it was felt that he will be better off in a halfway facility for further restorative therapy. He was subsequently discharged to a halfway facility in [place] where he recently was discharged from. PHYSICAL EXAMINATION: VITAL SIGNS: Temperature 97.5, pulse 62, respiratory rate 16, SpO2 of 100 on BiPAP, blood pressure is 139/77. GENERAL: Morbidly obese male, in no obvious distress. Afebrile. Anicteric. Acyanotic. HEENT: Normocephalic, atraumatic. Oral mucosa is moist. NECK: Tracheostomy noted. CARDIOVASCULAR: Regular rhythm and rate with normal heart sounds 1 and 2. RESPIRATORY: Fair air entry bilaterally with some transmitted breath sounds. EXTREMITIES: Huge bilateral legs with no obvious edema. Chronic lymphedema changes were noted. BILL HIKER: Conscious, alert, oriented x3 with appropriate mental status. Cranial nerves 2 through 12 are grossly intact. DISCHARGE DISPOSITION: alf facility. DISCHARGE CONDITION: Improved. DISCHARGE MEDICATIONS: Please see discharge med rec. This discharge took more than 37 minutes. Job ID: [id number]
[2018-10-17] MEDS ORDERED: Warfarin Sodium 5 MG TAB PO SCH (17:00)
== END 2018-10-16 17:13 | DRG 208 ==
LOC: ERS 19:03 → IMCU/EMU 21:12
PROVIDERS: ADMIT Hospitalist; ATTEND Hospitalist
PROC: 5A1935Z Respiratory Ventilation, Less than 24 Consecutive Hours (ICD-10-PCS; principal; 2018-10-10)
DX: J96.21 Acute and chronic respiratory failure with hypoxia (principal); I50.33 Acute on chronic diastolic (congestive) heart failure; E87.3 Alkalosis; I82.509 Chronic embolism and thrombosis of unspecified deep veins of unspecified lower extremity; Z68.41 Body mass index [BMI] 40.0-44.9, adult; E66.2 Morbid (severe) obesity with alveolar hypoventilation; I11.0 Hypertensive heart disease with heart failure; J96.22 Acute and chronic respiratory failure with hypercapnia; E78.00 Pure hypercholesterolemia, unspecified; E78.5 Hyperlipidemia, unspecified; J44.9 Chronic obstructive pulmonary disease, unspecified; D64.9 Anemia, unspecified; I89.0 Lymphedema, not elsewhere classified; I27.81 Cor pulmonale (chronic); B37.2 Candidiasis of skin and nail; I27.20 Pulmonary hypertension, unspecified; Z87.891 Personal history of nicotine dependence; Z93.0 Tracheostomy status; Z86.711 Personal history of pulmonary embolism; Z79.01 Long term (current) use of anticoagulants; Z79.899 Other long term (current) drug therapy; Z99.81 Dependence on supplemental oxygen
CPT/HCPCS: 36415; 71045; 80048; 80053; 80069; 82550; 83690; 83735; 83880; 84484; 85025; 85610; 93005; 93306; 93798; 94640; 94660; 94760; 96374; J1650; J1940; J7620; J7626